=== PATIENT | female | born 1995 | race Caucasian/White ===

== ENCOUNTER → 2019-06-10 17:21 | Outpatient (CLI) | payer MEDICAID, SELFPAY ==
[2019-06-10 18:12] LABS: Chloride 104 mmol/L (98-107); Sodium 141 mmol/L (136-145)
[2019-06-10 18:13] LABS: Potassium 4.2 mmoL/L (3.5-5.1)
[2019-06-10 18:15] LABS: Alanine Aminotransferase 9 U/L (12-78); Albumin Level 4.2 g/dl (3.5-5.0); Albumin/Globulin Ratio 1.5 (1.1-1.8); Alkaline Phosphatase 68 U/L (38-126); Anion Gap 15.2 mEq/L (5-15); Aspartate Amino Transferase 24 U/L (14-36); Bilirubin,Total 0.2 mg/dl (0.2-1.3); Blood Urea Nitrogen 7 mg/dl (7-17); Calcium 9.5 mg/dl (8.4-10.2); Carbon Dioxide 26 mmol/L (22.0-30.0); Chol/HDL Ratio 2.4 (1-3.5); Cholesterol 107 mg/dl (140-200); Estimated Glomerular Filt Rate 153 ml/min (>60); GFR (African American) 185 ML/MIN (>60); Globulin 2.8 g/dL (1.3-3.2); Glucose 75 mg/dl (74-100); HDL Cholesterol 45 mg/dl (40-60); Triglycerides 34 mg/dl (30-150); VLDL Cholesterol 7 mg/dL (0-40)
[2019-06-10 18:16] LABS: Basophils % 0.4 % (0.1-2.0); Eosinophils # 0.1 K/mm3 (0.0-0.4); Eosinophils % 0.7 % (0.1-12.0); Hematocrit 41.7 % (37.0-47.0); Hemoglobin 13.6 g/dL (12.2-16.2); Lymphocytes # 2.1 K/mm3 (0.7-4.5); Lymphocytes % 24.3 % (10-50); Mean Corpuscular HGB Conc 32.6 g/dL (31.8-35.4); Mean Corpuscular Hemoglobin 31.4 pg (27.0-31.2); Mean Corpuscular Volume 96.3 fl (81-99); Mean Platelet Volume 8.7 fl (7.4-10.4); Monocytes # 0.5 K/mm3 (0.1-1.0); Monocytes % 5.5 % (1.7-9.3); Neutrophils # 5.9 K/mm3 (1.8-7.8); Neutrophils % 69.1 % (37.0-80.0); Platelet Count 438 K/mm3 (142-424); Red Blood Count 4.33 M/mm3 (4.20-5.40); Red Cell Distribution Width 13.1 % (11.5-17.5); White Blood Count 8.5 K/mm3 (4.8-10.8)
[2019-06-10 18:33] LABS: T4 (Thyroxine) 7.2 ug/dl (5.53-11.0)
[2019-06-10 18:47] LABS: Thyroid Stimulating Hormone 0.62 uIU/mL (0.465-4.68)
[2019-06-12 12:18] LABS: Vitamin D 25 Hydroxy 26.6 ng/mL (30.0-100.0)
== END ==
PROVIDERS: Visit Provider Physician Assistant
DX: Z79.899 Other long term (current) drug therapy (principal); E55.9 Vitamin D deficiency, unspecified
CPT/HCPCS: 80053; 80061; 82652; 84436; 84443; 85025

== ENCOUNTER → 2019-06-11 12:04 | Outpatient (CLI) | payer MEDICAID, SELFPAY ==
--- NOTE | 2019-06-11 12:09 | XR_ITS ---
PROCEDURE: XR CERVICAL SPINE 4V CLINICAL INDICATION: Neck pain, decreased ROM Neck pain COMPARISON: No exams were available for comparison FINDINGS: There is slight reversal of the cervical lordosis which could be due to patient positioning or muscle spasm. No acute fracture or dislocation. The disc spaces are well preserved. The foramina are widely patent. No significant degenerative change. No cervical rib IMPRESSION: There is straightening/reversal of the normal lordosis which may be due to patient positioning or muscle spasm. Otherwise negative Dictated by: Baltazar Decker MD 06/11/2019 18:01 Electronically signed by Baltazar Decker MD in [place] 06/11/2019 18:01
== END ==
PROVIDERS: PCP Physician Assistant; Visit Provider Physician Assistant
DX: M54.2 Cervicalgia (principal)
CPT/HCPCS: 72050

== ENCOUNTER 2020-03-13 14:58 | Emergency (ER) | payer MEDICAID, SELFPAY ==
[2020-03-13 15:00] VITALS: BP 144/95; PULSE 74; RESP 16; TEMP 36.6; O2SAT 98; BMI 25.8
[2020-03-13 15:10] VITALS: BP 116/71; PULSE 69; RESP 21; TEMP 36.6; O2SAT 100; BMI 25.8
--- NOTE | 2020-03-13 15:32 | HMH.EDUTC ---
[facility] [place] Disposition Condition on Discharge: Good Time of Disposition: 15:36 <SummerJaime ramosclevemarshall - Last Filed: 03/13/20 15:32> Condition on Discharge: Good <Jeff Sutherland - Last Filed: 03/13/20 16:27> Clinical Impression: Corneal abrasion, left Qualifiers: Encounter type: initial encounter Qualified Code(s): S05.02XA - Injury of conjunctiva and corneal abrasion without foreign body, left eye, initial encounter Disposition: Home, Self-Care Instructions: DI for Corneal Abrasion Prescriptions: Erythromycin Base [Erythromycin 1gm opth ointment] 1 applicatio EYE-LEFT QID 5 Days #1 oint...g. Transmission Status: Pending to [facility] Referrals: Mike Reyes MD [Primary Care Provider] - Medical Decision Making - Babar Pak Pt receiving controlled substance: No <Butch Parisi - Last Filed: 03/13/20 15:32> - Medical Records Medical records reviewed: Yes: I reviewed the patient's medical records. - Babar Pak Pt receiving controlled substance: No <Jeff Sutherland - Last Filed: 03/13/20 16:27> Vital Signs: 03/13/20 15:00 03/13/20 15:10 Temperature 98 F 97.9 F Temperature Source Oral Oral Pulse Rate [Right Brachial] 74 69 Respiratory Rate 16 21 Blood Pressure [Right Arm] 144/95 H 116/71 Blood Pressure Mean [Right Arm] 111 86 Blood Pressure Source [Right Arm] Automatic Cuff Blood Pressure Position [Right Arm] Sitting Sitting 02 Sat by Pulse Oximetry 98 100 Oxygen Delivery Method Room Air Room Air Medical Decision Narrative: 24-year-old female presenting to the emergency department with left eye discomfort. Patient has normal visual acuity. I did perform Mae lamp examination. She does have a small corneal abrasion. There was some dirt also in the medial aspect of the eye. This was removed with a cotton swab tip. Patient be discharged with antibiotic ointment. Needs to follow-up with PCP. Given strict return precautions. Verbalized understanding. (Jeff Sutherland) [facility] [place] HPI - General Mode of Arrival: Ambulatory Source of Information: Patient Limitations: No Limitations Description of Symptoms (Recalled from Triage Doc. by RN): PATIENT C/O BURNING AND IRRITATION TO LEFT EYE SINCE YESTERDAY. STATES SHE FEELS LIKE THERE IS SOMETHING IN IT HEENT Symptoms (Recalled from RN notes): Yes Resp Symptoms (Recalled from RN notes): No Skin Symptoms (Recalled from RN notes): No MS Symptoms (Recalled from RN notes): No Functional Status (Recalled from RN notes): WNL - History of Present Illness Provider Complaint: 24 yr old female presents for left eye pain. Pt states last pm she felt something was in her eye and she rubbed it. Pt states she used artificial tears and her mother looked in eye and could not find anything. pt states she feels like there is something in her eye or scratched her eye. pt states no drainage or redness - Worker's Comp Is this a Worker's Comp case?: No <Butch Parisi - Last Filed: 03/13/20 15:32> <Jeff Sutherland - Last Filed: 03/13/20 16:27> - General Chief complaint: [facility] Stated complaint: left eye irritated Time Seen by Provider: 03/13/20 15:32 - Related Data Previous Rx's Medication Instructions Recorded Erythromycin Base [Erythromycin 1 applicatio EYE-LEFT QID 5 Days 03/13/20 1gm opth ointment] #1 oint...g. Allergies Allergy/AdvReac Type Severity Reaction Status Date / Time No Known Drug Allergies Allergy Unknown Verified 06/10/19 14:24 [NKDA] [facility] History - Hepatitis A Screen Drug use history?: No High risk sexual behaviors?: No History of sexually transmitted infection?: No Currently employed?: No Childcare worker?: No Do you have indoor plumbing?: Yes Do you have electricity?: Yes I have reviewed the patient's past medical history: Yes 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: Denies:: Diabetes Mellitus Type 1, Diabetes Mellitus Type 2 Other Surgeries: Yes: Amputation: No Fractures: No - Social History S
--- NOTE | 2020-03-13 15:51 | PC.NURSE ---
PATIENT SENT TO ER AT THIS TIME PER MAHENDRA OLIVAS APRN
--- NOTE | 2020-03-13 16:13 | PC.NURSE ---
visual acuity rt eye 20/20, lt eye 20/40 -1 with out correction
[2020-03-13 16:50] VITALS: BP 180/71; PULSE 76; RESP 16; TEMP 36.9; O2SAT 99
== END 2020-03-13 16:50 | disposition home or self-care (01) ==
LOC: UTC 15:36 → ER 15:51
PROVIDERS: Emergency Provider Emergency Medicine; PCP Emergency Medicine
DX: S05.02XA Injury of conjunctiva and corneal abrasion without foreign body, left eye, initial encounter (principal); F17.290 Nicotine dependence, other tobacco product, uncomplicated
CPT/HCPCS: 99282

== ENCOUNTER 2020-03-22 08:10 | Emergency (ER) | payer MEDICAID, SELFPAY ==
--- NOTE | 2020-03-22 08:05 | ECG_ITS ---
APPROVED REPORT Exam: Resting ECG HR:65 bpm ECG Measurements Heart Rate 65 AXES WV 136 P 31 QRSd 76 QRS 60 QT 392 T 58 QTc 407 Conclusion Normal sinus rhythm with sinus arrhythmia Normal ECG Electronically signed by : Marlon Singleton, 03/22/2020 19:08:58
[2020-03-22 08:10] VITALS: BP 138/82; PULSE 84; RESP 20; TEMP 36.6; O2SAT 100; BMI 25.8
--- NOTE | 2020-03-22 08:20 | XR_ITS ---
PROCEDURE: XR CHEST 2V CLINICAL HISTORY: cough soa COMPARISON: No exams were available for comparison FINDINGS: The cardiomediastinal silhouette and pulmonary vascularity are within normal limits. The lungs are clear without infiltrates, suspicious nodules, or pleural effusions. There is calcified granuloma in the right upper lobe. No acute bony abnormalities. IMPRESSION: No acute findings. Dictated by: Baltazar Decker MD 03/22/2020 09:08 Baltazar Decker MD in [place] 03/22/2020 09:08
--- NOTE | 2020-03-22 08:20 | HMH.EDGENADL ---
ED Disposition Clinical Impression: Atypical chest pain Asthma Qualifiers: Asthma severity: mild Asthma persistence: intermittent Asthma complication type: with acute exacerbation Qualified Code(s): J45.21 - Mild intermittent asthma with (acute) exacerbation Disposition: Home, Self-Care Condition on Discharge: Good Instructions: DI for Atypical Chest Pain Prescriptions: predniSONE [Prednisone 20mg Tab] 60 mg PO DAILY 5 Days #15 tab Prescription Printed Albuterol Sulfate [Proair Hfa] 8.5 gm IH Q4-6H PRN #1 hfa.aer.ad PRN Reason: Shortness Of Breath Or Wheezing Prescription Printed Referrals: Mike Reyes MD [Primary Care Provider] - Forms: Work/School Release - Critical Care Critical Care Time: No Attestation: On , the high probability of a clinically significant, sudden or life threatening deterioration of the following system(s) required my full and direct attention, intervention and personal management. The time I documented below is in addition to time spent performing reported procedures but includes the following listed in this critical care notation. Medical Decision Making - Medical Records Medical records reviewed: Yes: I reviewed the patient's medical records. - Babar Inquiry Pt receiving controlled substance: No Vital Signs: 03/22/20 08:10 Temperature 97.9 F Temperature Source Oral Pulse Rate [Left Radial] 84 Respiratory Rate 20 Blood Pressure [Right Arm] 138/82 Blood Pressure Mean [Right Arm] 100 Blood Pressure Source [Right Arm] Automatic Cuff Blood Pressure Position [Right Arm] Sitting 02 Sat by Pulse Oximetry 100 Oxygen Delivery Method Room Air - Lab Data Lab Results 03/22/20 08:15: Serum HCG, Qual Negative Orders (Tests/Meds): ED MEDICATIONS Discontinued Medications Generic Name Dose Route Start Last Admin Trade Name Freq PRN Reason Stop Dose Admin Albuterol/Ipratropium 3 ml 03/22/20 08:20 Albuterol/Ipratropium 3 Ml Neb IH 03/22/20 08:21 ONCE ONE Medical Decision Narrative: Patient is a 24 year old female who presents with shortness of breath. on arrival she is hemodynamically stable. Vitals unremarkable. EKG without ischemic changes, NSR, rate of 65, normal axis. Ddx includes asthma exacerbation, viral URI, pneumonia, PE, ACS. Low suspicion for ACS based on EKG, history, no risk factors. PERC negative, low suspicion for PE. Likely asthma exacerbation. CXR unremarkable by my read. Given albuterol neb in the ED with improvement. Will discharge home with refills for her home meds and strict return precautions. General Adult HPI - General Chief complaint: Chest Pain Stated complaint: chest pain Time Seen by Provider: 03/22/20 08:11 Mode of Arrival: Ambulatory (90) Limitations: No Limitations Description of Symptoms (Recalled from ER Triage Doc. by RN): c/o chest pain when she takes a deep breath. Pain started within this hour. - History of Present Illness HPI narrative: The patient is a 24 year old female with a history of asthma who presents with shortness of breath and chest pain. She states it has been going on for about a week but got worse this morning. She says it is consistent with previous asthma exacerbations - she is out of her albuterol inhaler. 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 No fever, N/V/D. notes a dry cough. No abdominal pain. - Related Data Previous Rx's Medication Instructions Recorded Albuterol Sulfate [Proair Hfa] 8.5 gm IH Q4-6H PRN #1 hfa.aer.ad 03/22/20 predniSONE [Prednisone 20mg 60 mg PO DAILY 5 Days #15 tab 03/22/20 Tab] Allergies Allergy/AdvReac Type Severity Reaction Status Date / Time No Known Drug Allergies Allergy Unknown Verified 06/10/19 14:24 [NKDA] [facility] History - Hepatitis A Screen Drug use history?: No High risk sexual behaviors?: No History of sexually transmitted infection?: No Currently employed?: No Child
[2020-03-22 08:40] LABS: HCG Qualitative, Serum Negative (Negative)
[2020-03-22 09:00] VITALS: PULSE 75; PULSE 80
[2020-03-22 09:25] VITALS: BP 115/73; PULSE 80; RESP 20; TEMP 36.6; O2SAT 100
== END 2020-03-22 09:26 | disposition home or self-care (01) ==
PROVIDERS: Emergency Provider Emergency Medicine; PCP Emergency Medicine
DX: J45.21 Mild intermittent asthma with (acute) exacerbation (principal); R07.89 Other chest pain; F17.210 Nicotine dependence, cigarettes, uncomplicated; Z79.899 Other long term (current) drug therapy
CPT/HCPCS: 71046; 84703; 93005; 99282

== ENCOUNTER 2020-05-21 14:25 | Emergency (ER) | payer MEDICAID, SELFPAY ==
[2020-05-21 14:25] VITALS: BP 140/100; PULSE 85; RESP 18; TEMP 36.7; O2SAT 98; BMI 26.6
[2020-05-21 14:49] LABS: Urine Pregnancy, HCG Qual. Negative (Negative)
--- NOTE | 2020-05-21 15:31 | HMH.EDGENADL ---
ED Disposition Clinical Impression: Back pain with sciatica Disposition: Home, Self-Care Condition on Discharge: Good Instructions: DI for Back Pain With Sciatica Additional Instructions: Prednisone as prescribed. Ibuprofen or Tylenol for pain. additional instructions for BACK PAIN: See your physician as soon as possible for further evaluation. Return immediately if back pain becomes intolerable, or if fever, numbness or weakness of your legs, loss of control of your bowels or bladder. Prescriptions: predniSONE [Prednisone 20mg Tab] 20 mg PO BID #10 tab Transmission Status: Received by [facility] Referrals: Mike Reyes MD [Primary Care Provider] - - Critical Care Critical Care Time: No Attestation: On 05/21/20, the high probability of a clinically significant, sudden or life threatening deterioration of the following system(s) required my full and direct attention, intervention and personal management. The time I documented below is in addition to time spent performing reported procedures but includes the following listed in this critical care notation. Medical Decision Making - Babar Inquiry Pt receiving controlled substance: No Vital Signs: 05/21/20 14:25 05/21/20 16:13 Temperature 98.1 F 98 F Temperature Source Oral Oral Pulse Rate 74 Pulse Rate [Radial] 85 Respiratory Rate 18 16 Blood Pressure 132/74 Blood Pressure [Right Arm] 140/100 H Blood Pressure Mean [Right Arm] 113 Blood Pressure Position Sitting Blood Pressure Position [Right Arm] Sitting 02 Sat by Pulse Oximetry 98 Oxygen Delivery Method Room Air Room Air - Lab Data Lab Results 05/21/20 14:35: Urine HCG, Qual Negative Orders (Tests/Meds): ED MEDICATIONS Discontinued Medications Generic Name Dose Route Start Last Admin Trade Name Jesi PRN Reason Stop Dose Admin Dexamethasone Sodium Phosphate 8 mg 05/21/20 15:37 05/21/20 15:46 Dexamethasone 4mg/Ml 1ml Vial IM 05/21/20 15:38 8 mg ONCE ONE Administration Ketorolac Tromethamine 60 mg 05/21/20 15:37 05/21/20 15:46 Ketorolac 60mg/2ml Vial IM 05/21/20 15:38 60 mg ONCE ONE Administration General Adult HPI - General Chief complaint: Back Pain/Injury Stated complaint: back pain, no accident Time Seen by Provider: 05/21/20 15:31 Mode of Arrival: Ambulatory Limitations: No Limitations Description of Symptoms (Recalled from ER Triage Doc. by RN): TO ED PER PVT CAR WITH C/O LOWER BACK PAIN RADIATING LT GROIN AND DOWN LT LEG STARTING APPROX 2 DAYS AGO WHEN GETTING OUT OF BED. PT DENIES ANY INCONTINENCE OF BOWEL OR BLADDER - History of Present Illness HPI narrative: Patient states that she awakened with low back pain radiating into her left thigh and groin area 2 days ago. No injury or unusual activity. No prior back problems except for scoliosis. Denies numbness or weakness but has occasional tingling of her left thigh when walking. No loss of bowel or bladder control. She took some ibuprofen couple of days ago, but no medications since. Pain seems to improve when she improves her posture and sits upright. - Related Data Previous Rx's Medication Instructions Recorded Albuterol Sulfate [Proair Hfa] 8.5 gm IH Q4-6H PRN #1 hfa.aer.ad 03/22/20 predniSONE [Prednisone 20mg 60 mg PO DAILY 5 Days #15 tab 03/22/20 Tab] predniSONE [Prednisone 20mg 20 mg PO BID #10 tab 05/21/20 Tab] Allergies Allergy/AdvReac Type Severity Reaction Status Date / Time No Known Drug Allergies Allergy Unknown Verified 06/10/19 14:24 [NKDA] [facility] History - Hepatitis A Screen Drug use history?: No High risk sexual behaviors?: No History of sexually transmitted infection?: No Currently employed?: No Childcare worker?: No Do you have indoor plumbing?: Yes Do you have electricity?: Yes Attestation statement:: This patient has been screened for Hepatitis A risk factors. I have reviewed the patient's
[2020-05-21 16:13] VITALS: BP 132/74; PULSE 74; RESP 16; TEMP 36.6; O2SAT 98
== END 2020-05-21 16:14 | disposition home or self-care (01) ==
PROVIDERS: Emergency Provider Emergency Medicine; PCP Emergency Medicine
DX: M54.42 Lumbago with sciatica, left side (principal); F17.210 Nicotine dependence, cigarettes, uncomplicated
CPT/HCPCS: 81025; 96372; 99282

== ENCOUNTER 2020-06-09 19:23 | Emergency (ER) | payer MEDICAID, SELFPAY ==
[2020-06-09 19:25] VITALS: BP 134/72; PULSE 93; RESP 16; TEMP 36.9; O2SAT 100; BMI 26.6
--- NOTE | 2020-06-09 19:32 | ECG_ITS ---
APPROVED REPORT Exam: Resting ECG HR:83 bpm ECG Measurements Heart Rate 83 AXES MI 138 P 64 QRSd 84 QRS 89 QT 354 T 73 QTc 415 Conclusion Normal sinus rhythm Nonspecific ST abnormality Abnormal ECG Electronically signed by : Marlon Singleton, 06/10/2020 10:05:53
--- NOTE | 2020-06-09 19:41 | XR_ITS ---
PROCEDURE: XR CHEST 2V CLINICAL HISTORY: syncope COMPARISON: CR XR CHEST 2V from 01/11/2019 CR XR CHEST 2V from 02/11/2019 CR XR CHEST 2V from 03/22/2020 FINDINGS: The cardiomediastinal silhouette and pulmonary vascularity are within normal limits. The lungs are clear without infiltrates, suspicious nodules, or pleural effusions. No acute bony abnormalities. IMPRESSION: No acute findings. Dictated by: Baltazar Decker MD 06/10/2020 05:34 Baltazar Decker MD in [place] 06/10/2020 05:34
--- NOTE | 2020-06-09 19:41 | CT_ITS ---
PROCEDURE: CT LUMBAR SPINE WO CON CLINICAL HISTORY: fall COMPARISON: No exams were available for comparison TECHNIQUE: Axial images obtained with sagittal and coronal reformats. All CT scans at the facility use one or more dose reduction, viz: automated exposure control, ma/kV adjustment per patient size (including targeted exams where dose is matched to indication, i.e. head), or iterative reconstruction technique. FINDINGS: There is normal alignment. No fracture or dislocation. No lytic or blastic change. There is bulging disc present L4-5 facet and ligamentum hypertrophy with resultant canal. The disc somewhat eccentric toward the right. Bulging disc is also present at L5-S1 with a small right paracentral disc protrusion. There is small amount fluid in the pelvis. A 2 mm stone is present in the upper pole of the left kidney and there is a small left renal hypodensity at 1.6 cm which may represent a renal cyst. IMPRESSION: 1. No acute fracture. 2. There is bulging disc present L4-5 facet and ligamentum hypertrophy with resultant canal. The disc somewhat eccentric toward the right. Bulging disc is also present at L5-S1 with a small right paracentral disc protrusion. Dictated by: Baltazar Decker MD 06/10/2020 07:13 Baltazar Decker MD in [place] 06/10/2020 07:13
--- NOTE | 2020-06-09 19:41 | CT_ITS ---
PROCEDURE: CT HEAD/BRAIN WO CON CLINICAL INDICATION: fall Head injury with headache/pain, contusion, abrasion or hematoma Syncope COMPARISON: CT CT HEAD/BRAIN WO CON from 11/15/2018 TECHNIQUE: Axial images obtained. All CT scans at the facility use one or more dose reduction, viz: automated exposure control, ma/kV adjustment per patient size (including targeted exams where dose is matched to indication, i.e. head), or iterative reconstruction technique. FINDINGS: No midline shift, mass effect, intracranial hemorrhage, hydrocephalus, or extra-axial fluid collection is evident. The calvarium has an unremarkable appearance. No mastoid effusion. No sinus air-fluid level. IMPRESSION: No acute intracranial finding Dictated by: Baltazar Decker MD 06/10/2020 07:08 Baltazar Decker MD in [place] 06/10/2020 07:08
--- NOTE | 2020-06-09 19:45 | CT_ITS ---
PROCEDURE: CT CERVICAL SPINE WO CON CLINICAL INDICATION: fall Blunt trauma with injury and pain, contusion/abrasion or hematoma following injury COMPARISON: CT CT CERVICAL SPINE WO CON from 11/15/2018 TECHNIQUE: Axial images obtained with sagittal and coronal reformats. All CT scans at the facility use one or more dose reduction, viz: automated exposure control, ma/kV adjustment per patient size (including targeted exams where dose is matched to indication, i.e. head), or iterative reconstruction technique. Axial spiral CT scanning performed of the cervical spine beginning at the base of the skull and continuing to the upper T-spine. 3-D multiplanar reconstruction with 3-D manipulation of volumetric data set in image rendering was completed by the radiologist and/or technologist with the supervision of the radiologist on independent workstation. FINDINGS: No fracture nor subluxation is evident. Normal prevertebral soft tissues. Facets, neural foramen and vertebral bodies intact and unremarkable. Normal C1/C2 relationships. Apices of lungs are clear with no acute findings. There is straightening/reversal of the normal lordosis which may be due to patient positioning or muscle spasm. No fracture or dislocation. The disc are well preserved. Lung apices are clear. IMPRESSION: Reversal of cervical lordosis otherwise negative. Dictated by: Baltazar Decker MD 06/10/2020 07:06 Baltazar Decker MD in [place] 06/10/2020 07:06
[2020-06-09 19:46] LABS: Microscopic, Urine URINE MICROSCOPIC (MICROSCOPIC)
[2020-06-09 19:53] LABS: Urine Pregnancy, HCG Qual. Negative (Negative)
[2020-06-09 19:55] LABS: Basophils % 0.2 % (0.1-2.0); Eosinophils % 0.1 % (0.1-12.0); Hematocrit 43.2 % (37.0-47.0); Hemoglobin 14.1 g/dL (12.2-16.2); Lymphocytes # 1.7 K/mm3 (0.7-4.5); Lymphocytes % 16.1 % (10-50); Mean Corpuscular HGB Conc 32.7 g/dL (31.8-35.4); Mean Corpuscular Hemoglobin 31.5 pg (27.0-31.2); Mean Corpuscular Volume 96.2 fl (81-99); Mean Platelet Volume 8.1 fl (7.4-10.4); Monocytes # 0.6 K/mm3 (0.1-1.0); Monocytes % 5.1 % (1.7-9.3); Neutrophils # 8.4 K/mm3 (1.8-7.8); Neutrophils % 78.5 % (37.0-80.0); Platelet Count 393 K/mm3 (142-424); Red Blood Count 4.49 M/mm3 (4.20-5.40); Red Cell Distribution Width 13.3 % (11.5-17.5); White Blood Count 10.7 K/mm3 (4.8-10.8)
[2020-06-09 20:00] VITALS: BP 139/73; PULSE 89; RESP 17; O2SAT 98
[2020-06-09 20:00] LABS: Alanine Aminotransferase 15 U/L (12-78); Albumin Level 4.8 g/dl (3.5-5.0); Alkaline Phosphatase 62 U/L (38-126); Anion Gap 13.4 mEq/L (5-15); Aspartate Amino Transferase 29 U/L (14-36); Bilirubin,Indirect 0.8 mg/dL (0.0-0.9); Bilirubin,Total 0.8 mg/dl (0.2-1.3); Bilirubin,Unconjugated 0.9 mg/dL (0.0-1.1); Blood Urea Nitrogen 8 mg/dl (7-17); Calcium 9.9 mg/dl (8.4-10.2); Carbon Dioxide 24 mmol/L (22.0-30.0); Chloride 103 mmol/L (98-107); Creatinine Clearance Estimated 211 mL/min (50-200); Estimated Glomerular Filt Rate 152 ml/min (>60); GFR (African American) 183 ML/MIN (>60); Glucose 111 mg/dl (74-100); Potassium 3.4 mmoL/L (3.5-5.1); Sodium 137 mmol/L (136-145); Total Protein,Serum 8.3 g/dl (6.3-8.2)
[2020-06-09 20:04] LABS: Bacteria,Urine 2+ /lpf; WBC,Urine Occasional #/hpf (0-3)
[2020-06-09 20:05] LABS: Amphetamine/Metha Screen,Urine Negative ng/ml (<1000); Barbiturates Screen,Urine Negative ng/ml (<200)
[2020-06-09 20:05] LABS: C-Reactive Protein 0.4 mg/L (0-4)
[2020-06-09 20:06] LABS: Benzodiazepines Screen,Urine Negative ng/ml (<200)
--- NOTE | 2020-06-09 20:06 | HMH.EDSYNC ---
ED Disposition Clinical Impression: Vasovagal syncope Disposition: Home, Self-Care Condition on Discharge: Good Instructions: DI for Syncope in Adults (Fainting) Additional Instructions: will see in office this week Referrals: Mike Reyes MD [Primary Care Provider] - - Critical Care Critical Care Time: No Attestation: On 06/09/20, the high probability of a clinically significant, sudden or life threatening deterioration of the following system(s) required my full and direct attention, intervention and personal management. The time I documented below is in addition to time spent performing reported procedures but includes the following listed in this critical care notation. Medical Decision Making - Medical Records Medical records reviewed: Yes: I reviewed the patient's medical records. - Babar Inquiry Pt receiving controlled substance: No Vital Signs: 06/09/20 19:25 06/09/20 20:00 Temperature 98.4 F Temperature Source Oral Pulse Rate [Left Radial] 93 H 89 Respiratory Rate 16 17 Blood Pressure [Right Arm] 134/72 139/73 Blood Pressure Mean [Right Arm] 92 95 Blood Pressure Source [Right Arm] Automatic Cuff Automatic Cuff Blood Pressure Position [Right Arm] Supine Supine 02 Sat by Pulse Oximetry 100 98 Oxygen Delivery Method Room Air Room Air - Lab Data Lab results reviewed: Yes: I reviewed the patient's lab results. Lab Results 06/09/20 19:32: Urine Color Yellow, Urine Appearance Sl cloudy, Urine pH 6.0, Ur Specific [place] <= 1.005, Urine Protein Negative, Urine Glucose (UA) Negative, Urine Ketones Negative, Urine Blood Negative, Urine Nitrate Negative, Urine Bilirubin Negative, Urine Urobilinogen 0.2, Ur Leukocyte Esterase Negative, Urine RBC None, Urine WBC Occasional, Ur Squamous Epith Cells 10-20, Urine Bacteria 2+ 06/09/20 19:32: Urine HCG, Qual Negative 06/09/20 19:32: Urine Opiates Screen Negative, Urine Methadone Screen Negative, Ur Barbituates Screen Negative, Ur Phencyclidine Scrn Negative, Ur Amphetamines Screen Negative, U Benzodiazepines Scrn Negative, Urine Cocaine Screen Negative, U Marijuana (THC) Screen Positive H 06/09/20 19:35: Troponin I < 0.01 06/09/20 19:40: WBC 10.7, RBC 4.49, Hgb 14.1, Hct 43.2, MCV 96.2, MCH 31.5 H, MCHC 32.7, RDW 13.3, Plt Count 393, MPV 8.1, Neut % (Auto) 78.5, Lymph % (Auto) 16.1, Sharp % (Auto) 5.1, Eos % (Auto) 0.1, Baso % (Auto) 0.2, Neut # (Auto) 8.4 H, Lymph # (Auto) 1.7, Sharp # (Auto) 0.6, Eos # (Auto) 0.0, Baso # (Auto) 0.0, ESR 20 06/09/20 19:40: Sodium 137, Potassium 3.4 L, Chloride 103, Carbon Dioxide 24, Anion Gap 13.4, BUN 8, Creatinine 0.50 L, Estimated Creat Clear 211, Estimated GFR 152, Est GFR ( Amer) 183, Glucose 111 H, Calcium 9.9, Total Bilirubin 0.8, Direct Bilirubin 0.0, Conjugated Bilirubin 0.0, Indirect Bilirubin 0.8, Unconjugated Bilirubin 0.9, AST 29, ALT 15, Alkaline Phosphatase 62, C-Reactive Protein 0.4, Total Protein 8.3 H, Albumin 4.8, Procalcitonin < 0.030 Result diagrams: 06/09/20 19:40 06/09/20 19:40 Orders (Tests/Meds): ED MEDICATIONS Generic Name Dose Route Start Last Admin Trade Name Freq PRN Reason Stop Dose Admin Sodium Chloride 1,000 mls @ 999 mls/hr 06/09/20 19:45 06/09/20 19:48 Sod Chlor 0.9% 1000ml Bag IV 06/09/20 20:45 999 mls/hr .Q1H1M MIESHA Administration Discontinued Medications Generic Name Dose Route Start Last Admin Trade Name Freq PRN Reason Stop Dose Admin Ketorolac Tromethamine 30 mg 06/09/20 19:46 06/09/20 19:49 Ketorolac 30mg/Ml Vial IV 06/09/20 19:47 30 mg ONCE ONE Administration Methylprednisolone Sodium Succinate 125 mg 06/09/20 19:46 06/09/20 19:49 Methylprednisolone Sod Succ 125mg Vial IV 06/09/20 19:47 125 mg ONCE ONE Administration ORDERS Category Date Time Status CT cervical spine wo con Stat Cat Scan 06/09/20 19:[address] head/brain wo con Stat Cat Scan 06/09/20 19:[address] lumbar spine wo con Stat Cat Scan 06/09/20 19:41 T
[2020-06-09 20:07] LABS: Appearance,Urine SL CLOUDY (Clear); Bilirubin,Urine Negative (Negative); Blood, Urine Negative (Negative); Cannabinoid Screen,Urine Positive ng/ml (<50); Cocaine Screen,Urine Negative ng/ml (<300); Color,Urine YELLOW (Yellow); Glucose,Urine (UA) Negative (Negative); Ketones,Urine Negative (Negative); Leukocyte Esterase,Urine Negative (Negative); Nitrate,Urine Negative (Negative); Protein,Urine Negative (Negative); Specific Gravity, Urine <= 1.005 (1.005-1.030); Urobilinogen,Urine 0.2 EU/dl (0.2)
[2020-06-09 20:08] LABS: Methadone Screen,Urine Negative ng/ml (<300); Opiate Screen,Urine Negative ng/ml (<300)
[2020-06-09 20:09] LABS: Phencyclidine Screen,Urine Negative ng/ml (<25)
[2020-06-09 20:26] LABS: Procalcitonin < 0.030 ng/mL (0.0-2.0)
[2020-06-09 20:49] LABS: Erythrocyte Sedimentation Rate 20 mm/hr (0-20)
[2020-06-09 21:00] VITALS: BP 128/86; PULSE 78; RESP 16; O2SAT 99
[2020-06-09 21:08] LABS: Troponin I < 0.01 ng/ml (0.00-0.034)
[2020-06-09 21:30] VITALS: BP 109/64; PULSE 77; RESP 14; O2SAT 98
[2020-06-09 21:42] VITALS: BP 107/74; PULSE 88; RESP 16; TEMP 36.6; O2SAT 99
== END 2020-06-09 21:47 | disposition home or self-care (01) ==
PROVIDERS: Emergency Provider Emergency Medicine; PCP Emergency Medicine
DX: R55 Syncope and collapse (principal); F17.210 Nicotine dependence, cigarettes, uncomplicated
CPT/HCPCS: 70450; 71046; 72125; 72131; 80048; 80076; 80305; 81001; 81025; 84145; 84484; 85025; 85651; 86140; 87086; 93005; 93225; 93226; 96365; 96375; 99284

== ENCOUNTER 2020-07-22 15:00 | Outpatient (RCR) | payer MEDICAID, SELFPAY ==
--- NOTE | 2020-06-16 14:47 | HMH.PTOPEV ---
PT Outpatient Evaluation Rehab PT Outpatient Evaluation Start: 06/16/20 13:55 Freq: Status: Active Protocol: Document 06/16/20 14:31 GAL (Rec: 06/16/20 14:47 KRISTINAJORGE [id number]) Electronically Signed By Fernando Pettit, PT 06/16/20 14:31 Outpatient Therapy Subjective History Subjective History Patient is a 24 year old female presenting to outpatient PT with reports of sub-acute LBP with BLE radicular symptoms L>R. SI special tests negative. Most recent imaging indicates L 4/5 , L5/S1 bulging discs. Comorbidities indicate hx of asthma. Chief Complaint Pain,Stiff,Paresthesia, Weakness Symptom Type Ache,Sharp Symptoms Relieved By Prescription Meds,Activity Symptoms Aggravated By Sitting,Bending/Stooping, Physical Activity,Walking, Lifting Prior Functional Limitations None Current Functional Limitations Lifting,Housework,Sleeping, Sitting,Squatting,Recreation Activity,Bending/Stooping Symptom Description Constant but Variable Level of pain today (0-10) 1 Pain scale - at its best (0-10) 0 Pain scale - at its worst (0-10) 6 Lumbopelvic Eval Posture Thoracic Spine Posture Standing Position Neutral Lumbar Spine Posture Standing Position Neutral Palapation tenderness bilateral lumbar spinal tenderness Yes: L2-L5/S1 3/4 Accessory Movement L2 bilateral L3 bilateral L4 bilateral L5 bilateral S1 bilateral Range of Motion Lumbar Spine Active Flexion Range of 68 Motion (degrees) Lumbar Spine Active Extension Range of 24 Motion (degrees) Left Lumbar Spine Lateral Flexion Active wnl Range of Motion (degrees) Right Lumbar Spine Lateral Flexion WNL Active Range of Motion (degrees) Manual Muscle Test Bilateral Knee Extension Strength Grade 4 Good Knee Flexion Strength Grade 4 Good Hip Flexion Strength Grade 4 Good Extensor Hallucis Longus Strength Grade 5 Normal Ankle Dorsiflexion Strength Grade 5 Normal Gastronemius/Soleus Strength Grade 5 Normal DTR Rt Patellar 2+ Lt Patellar 2+ Rt Gastroc/Soleus 2+ Lt Gastroc/Soleus 2+ Special Tests Hip Kenna Test Positive Left,Positive Right Hip Pirifo
== END 2020-07-22 15:05 | disposition home or self-care (01) ==
LOC: PT 15:00
PROVIDERS: PCP Emergency Medicine; Visit Provider Nurse Practitioner Family
DX: M54.5 Low back pain (principal); M54.30 Sciatica, unspecified side
CPT/HCPCS: 97010; 97012; 97014; 97110; 97163; G0283

== ENCOUNTER 2020-08-06 17:23 | Emergency (ER) | payer MEDICAID, SELFPAY ==
[2020-08-06 17:51] VITALS: BP 127/96; PULSE 97; RESP 14; TEMP 36.9; O2SAT 97; BMI 25.5
--- NOTE | 2020-08-06 18:08 | HMH.EDUTC ---
[facility] [place] Clinical Impression: Otitis media Qualifiers: Otitis media type: suppurative Chronicity: acute Laterality: bilateral Recurrence: non-recurrent Spontaneous tympanic membrane rupture: without spontaneous rupture Qualified Code(s): H66.003 - Acute suppurative otitis media without spontaneous rupture of ear drum, bilateral Disposition: Home, Self-Care Condition on Discharge: Good Instructions: Middle Ear Infection Additional Instructions: Drink plenty of fluids. Take tylenol or ibuprofen for pain or fever. Take the medications as directed. Follow up with your regular doctor. GO TO THE ER FOR ANY WORSENING SYMPTOMS Prescriptions: Amoxicillin [Amoxicillin 500mg Tab] 500 mg PO TID 10 Days #30 tab Transmission Status: Received by [facility] Referrals: Mike Reyes MD [Primary Care Provider] - Time of Disposition: 18:17 Medical Decision Making - Medical Records Medical records reviewed: No: I reviewed the patient's medical records. - Babar Inquiry Pt receiving controlled substance: No Vital Signs: 08/06/20 17:51 08/06/20 18:46 Temperature 98.5 F 98.6 F Temperature Source Oral Pulse Rate 96 H Pulse Rate [Right] 97 H Respiratory Rate 14 16 Blood Pressure 122/82 Blood Pressure [Right Arm] 127/96 H Blood Pressure Mean [Right Arm] 106 Blood Pressure Source Automatic Cuff Blood Pressure Source [Right Arm] Automatic Cuff Blood Pressure Position Sitting Blood Pressure Position [Right Arm] Sitting 02 Sat by Pulse Oximetry 97 Oxygen Delivery Method Room Air [facility] [place] - General Stated complaint: Menstrual cycle Time Seen by Provider: 08/06/20 18:08 Mode of Arrival: Ambulatory Source of Information: Patient Limitations: No Limitations Description of Symptoms (Recalled from Triage Doc. by RN): pt is having L ear pain and feels like she is on a boat and dizzy. pt also c/o starting her period yesterday and its extremely heave. overall she says she feels weird and just wants to cry all the time. pt has no thought of harming herself. HEENT Symptoms (Recalled from RN notes): Yes (L ear pain and dizziness) Resp Symptoms (Recalled from RN notes): No Skin Symptoms (Recalled from RN notes): No MS Symptoms (Recalled from RN notes): No Functional Status (Recalled from RN notes): na - History of Present Illness Provider Complaint: She states that she has had left ear pain for the past 4 days. She has also felt dizzy at times. She is also having a heavy periods and states that she feels bad from that too. - Related Data Previous Rx's Medication Instructions Recorded Amoxicillin [Amoxicillin 500mg Tab] 500 mg PO TID 10 Days #30 tab 08/06/20 Allergies Allergy/AdvReac Type Severity Reaction Status Date / Time No Known Drug Allergies Allergy Unknown Verified 08/06/20 17:51 [NKDA] - Worker's Comp Is this a Worker's Comp case?: No [facility] History - Hepatitis A Screen Drug use history?: No High risk sexual behaviors?: No History of sexually transmitted infection?: No Currently employed?: No Childcare worker?: No Do you have indoor plumbing?: Yes Do you have electricity?: Yes Attestation statement:: This patient has been screened for Hepatitis A risk factors. I have reviewed the patient's past medical history: Yes 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: Reports:: Asthma Denies:: Diabetes Mellitus Type 1, Diabetes Mellitus Type 2 Other Surgeries: Yes: Amputation: No Fractures: No - Social History Smoking Status: Heavy tobacco smoker Tobacco Type: smokeless tobacco # Packs/Day (cigarettes): 5 Alcohol Intake: never Substance Use Type: denies use Occupational Status: other Housing: apartment Household Members: children Family Hx:: Non-contributory ROS Obtained: Yes All systems reviewed & no additional complaints - Constitutional Constitutional: Denies chills, Denies fever(s), Reports poor appetite, Reports malaise - Eyes Eyes: Denies eye discharge
[2020-08-06 18:46] VITALS: BP 122/82; PULSE 96; RESP 16; TEMP 37
== END 2020-08-06 18:25 | disposition home or self-care (01) ==
PROVIDERS: Emergency Provider Nurse Practitioner Family; PCP Emergency Medicine
DX: H66.003 Acute suppurative otitis media without spontaneous rupture of ear drum, bilateral (principal); N92.0 Excessive and frequent menstruation with regular cycle; F17.290 Nicotine dependence, other tobacco product, uncomplicated
CPT/HCPCS: 99202; G0463

== ENCOUNTER 2020-08-07 22:12 | Emergency (ER) | payer MEDICAID, SELFPAY ==
[2020-08-07 23:37] VITALS: BP 146/81; PULSE 84; RESP 16; TEMP 36.8; O2SAT 100; BMI 25.5
[2020-08-08 00:36] LABS: Strep Scrn Group A (Rapid) Negative (Negative)
[2020-08-08 01:15] VITALS: BP 113/87; PULSE 84; RESP 16; TEMP 36.7; O2SAT 98
--- NOTE | 2020-08-08 01:25 | HMH.EDGENADL ---
ED Disposition Clinical Impression: Pharyngitis Qualifiers: Pharyngitis/tonsillitis etiology: unspecified etiology Qualified Code(s): J02.9 - Acute pharyngitis, unspecified Disposition: Home, Self-Care Condition on Discharge: Good Instructions: DI for Acute Pain -- Adult Additional Instructions: fluids and see pcp for follow up Referrals: Mike Reyes MD [Primary Care Provider] - - Critical Care Critical Care Time: No Attestation: On 08/07/20, the high probability of a clinically significant, sudden or life threatening deterioration of the following system(s) required my full and direct attention, intervention and personal management. The time I documented below is in addition to time spent performing reported procedures but includes the following listed in this critical care notation. Medical Decision Making - Medical Records Medical records reviewed: Yes: I reviewed the patient's medical records. - Babar Inquiry Pt receiving controlled substance: No Vital Signs: 08/07/20 23:37 08/08/20 01:15 Temperature 98.2 F 98.1 F Temperature Source Oral Oral Pulse Rate 84 Pulse Rate [Left] 84 Respiratory Rate 16 16 Blood Pressure 113/87 Blood Pressure [Left Arm] 146/81 H Blood Pressure Mean [Left Arm] 102 Blood Pressure Source Automatic Cuff Blood Pressure Source [Left Arm] Automatic Cuff Blood Pressure Position Sitting Blood Pressure Position [Left Arm] Sitting 02 Sat by Pulse Oximetry 100 98 Oxygen Delivery Method Room Air Room Air - Lab Data Lab results reviewed: Yes: I reviewed the patient's lab results. Lab Results 08/08/20 00:00: Group A Strep Rapid Negative Orders (Tests/Meds): ORDERS Category Date Time Status Strep Screen Confirmation Stat Micro 08/08/20 00:00 Received General Adult HPI - General Chief complaint: PAIN Stated complaint: tested for strep Time Seen by Provider: 08/08/20 01:25 Mode of Arrival: Ambulatory Source of Information: Patient, Medical Record Limitations: No Limitations Description of Symptoms (Recalled from ER Triage Doc. by RN): patient would like to have strep screen, since she thinks daughter has strep. States she started antibotic yesterday for ear infection. - History of Present Illness HPI narrative: mother with sore throat on abx for ear infection - no rash or cough Onset (ago): day(s) Severity: moderate Associated symptoms: denies other symptoms Treatments prior to arrival: none - Related Data Home Medications Medication Instructions Recorded Confirmed Amoxicillin [Amoxicillin 500mg Tab] 500 mg PO TID 08/07/20 08/07/20 Allergies Allergy/AdvReac Type Severity Reaction Status Date / Time No Known Drug Allergies Allergy Unknown Verified 08/06/20 17:51 [NKDA] [facility] History - Hepatitis A Screen Drug use history?: No High risk sexual behaviors?: No History of sexually transmitted infection?: No Currently employed?: No Childcare worker?: No Do you have indoor plumbing?: No Do you have electricity?: No Attestation statement:: This patient has been screened for Hepatitis A risk factors. I have reviewed the patient's past medical history: Yes 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: Reports:: Asthma Denies:: Diabetes Mellitus Type 1, Diabetes Mellitus Type 2 Other Surgeries: Yes: Amputation: No Fractures: No - Social History Smoking Status: Heavy tobacco smoker Tobacco Type: smokeless tobacco # Packs/Day (cigarettes): 5 Alcohol Intake: never Substance Use Type: denies use Occupational Status: other Housing: apartment Household Members: children Family Hx:: Non-contributory ROS Obtained: Yes All systems reviewed & no additional complaints - Constitutional Constitutional: Denies fever(s) - Eyes Eyes: Denies eye discharge - ENT Ears, Nose, Mouth, and Throat: Reports as per HPI, Reports sore throat - Cardiovascular Cardiovascular: Denies chest pain - Respiratory Respiratory: Denies cough
[2020-08-08 01:55] VITALS: BP 113/87; PULSE 84; RESP 16; TEMP 36.7; O2SAT 98
== END 2020-08-08 01:57 | disposition home or self-care (01) ==
PROVIDERS: Emergency Provider Emergency Medicine; PCP Emergency Medicine
DX: J02.9 Acute pharyngitis, unspecified (principal); J45.909 Unspecified asthma, uncomplicated; F17.290 Nicotine dependence, other tobacco product, uncomplicated
CPT/HCPCS: 87430; 99282

== ENCOUNTER → 2020-08-11 14:14 | Outpatient (CLI) | payer MEDICAID, SELFPAY ==
[2020-08-11 16:10] LABS: Basophils # 0.1 K/mm3 (0-0.2); Basophils % 0.5 % (0.1-2.0); Eosinophils % 0.4 % (0.1-12.0); Hematocrit 41.8 % (37.0-47.0); Hemoglobin 14.1 g/dL (12.2-16.2); Lymphocytes # 1.4 K/mm3 (0.7-4.5); Lymphocytes % 15.4 % (10-50); Mean Corpuscular HGB Conc 33.8 g/dL (31.8-35.4); Mean Corpuscular Hemoglobin 31.4 pg (27.0-31.2); Monocytes # 0.6 K/mm3 (0.1-1.0); Monocytes % 6.6 % (1.7-9.3); Neutrophils # 6.8 K/mm3 (1.8-7.8); Neutrophils % 77.1 % (37.0-80.0); Platelet Count 479 K/mm3 (142-424); Red Blood Count 4.49 M/mm3 (4.20-5.40); White Blood Count 8.8 K/mm3 (4.8-10.8)
[2020-08-11 16:15] LABS: Alanine Aminotransferase 15 U/L (12-78); Albumin Level 5.1 g/dl (3.5-5.0); Albumin/Globulin Ratio 1.6 (1.1-1.8); Alkaline Phosphatase 81 U/L (38-126); Anion Gap 14.7 mEq/L (5-15); Aspartate Amino Transferase 29 U/L (14-36); Bilirubin,Total 0.7 mg/dl (0.2-1.3); Blood Urea Nitrogen 4 mg/dl (7-17); Calcium 10.1 mg/dl (8.4-10.2); Carbon Dioxide 29 mmol/L (22.0-30.0); Chloride 101 mmol/L (98-107); Chol/HDL Ratio 2.2 (1-3.5); Cholesterol 119 mg/dl (140-200); Estimated Glomerular Filt Rate 150 ml/min (>60); GFR (African American) 182 ML/MIN (>60); Globulin 3.1 g/dL (1.3-3.2); Glucose 99 mg/dl (74-100); HDL Cholesterol 53 mg/dl (40-60); Lactate Dehydrogenase 187 U/L (313-618); Potassium 3.7 mmoL/L (3.5-5.1); Sodium 141 mmol/L (136-145); Total Protein,Serum 8.2 g/dl (6.3-8.2); Triglycerides 41 mg/dl (30-150); VLDL Cholesterol 8 mg/dL (0-40)
[2020-08-11 16:26] LABS: Direct LDL Cholesterol 44.91 mg/dL (100-129)
[2020-08-11 16:31] LABS: Free T4 (Free Thyroxine) 1.31 ng/dl (0.78-2.19)
[2020-08-11 16:32] LABS: 25-OH Vitamin D, Total 27.2 ng/mL (30-100)
[2020-08-11 16:42] LABS: Thyroid Stimulating Hormone 0.87 uIU/mL (0.465-4.68)
[2020-08-13 10:50] LABS: FSH 6.5 mIU/mL (.); Progesterone 0.1 ng/mL (.)
[2020-08-22 10:36] LABS: Estrogen 109 pg/mL (.)
== END ==
PROVIDERS: Visit Provider Emergency Medicine
DX: Z00.00 Encounter for general adult medical examination without abnormal findings (principal); E55.9 Vitamin D deficiency, unspecified
CPT/HCPCS: 80053; 80061; 82306; 82672; 83001; 83615; 84144; 84439; 84443; 85025

== ENCOUNTER 2020-08-21 18:26 | Emergency (ER) | payer MEDICAID, SELFPAY ==
[2020-08-21 18:57] VITALS: BP 141/88; PULSE 84; RESP 19; TEMP 36.6; O2SAT 99; BMI 26.1
--- NOTE | 2020-08-21 19:18 | HMH.EDUTC ---
[facility] [place]ression: Otitis media Qualifiers: Otitis media type: unspecified Laterality: left Qualified Code(s): H66.92 - Otitis media, unspecified, left ear Disposition: Home, Self-Care Condition on Discharge: Good Instructions: Middle Ear Infection, Amoxicillin and Clavulanic Acid Additional Instructions: Monitor Temp, Over the counter Motrin or Tylenol as directed/as needed Tylenol every 4 hours and Motrin every 6 hours (as long as your family doctor has told you that you can take it) for fever or pain. and straight to ER if unable to lower temp less than 101.0 after medication given *Warm salt water gargles may help to soothe the throat and help with gum and tooth pain *Sleep elevated *Humidifier/Vaporizer *Flonase 2 sprays in each nostril daily but be aware that it may take 2-3 days before you notice improvement Take medication as prescribed Follow up if needed Follow up IMMEDIATELY for new or worsening symptoms or no Noticeable improvement over the next 48-72 hours. 911 for difficulty breathing or swallowing Prescriptions: Amoxicillin/Potassium Clav [Augmentin 875-125 Tablet] 1 tab PO Q12H 10 Days #20 tab Transmission Status: Pending to [facility] Fluticasone Propionate [Flonase 50mcg nasal spray 16gm] 1 spr NS DAILY #1 bottle Transmission Status: Pending to [facility] Referrals: Mike Reyes MD [Primary Care Provider] - As needed Time of Disposition: 19:34 Medical Decision Making - Babar Inquiry Pt receiving controlled substance: No Babar was queried for this patient: No Vital Signs: 08/21/20 18:57 Temperature 97.9 F Temperature Source Oral Pulse Rate [Right] 84 Respiratory Rate 19 Blood Pressure [Right Arm] 141/88 H Blood Pressure Mean [Right Arm] 105 Blood Pressure Source [Right Arm] Automatic Cuff Blood Pressure Position [Right Arm] Sitting 02 Sat by Pulse Oximetry 99 Oxygen Delivery Method Room Air [facility] [place] - General Stated complaint: left earache Time Seen by Provider: 08/21/20 19:18 Mode of Arrival: Ambulatory Source of Information: Patient Limitations: No Limitations Description of Symptoms (Recalled from Triage Doc. by RN): pt c/o a L ear ache and tooth pain HEENT Symptoms (Recalled from RN notes): Yes (L ear ache and tooth pain) Resp Symptoms (Recalled from RN notes): No Skin Symptoms (Recalled from RN notes): No MS Symptoms (Recalled from RN notes): No Functional Status (Recalled from RN notes): na - History of Present Illness Provider Complaint: Patient states that she has been having pain in her left ear State that she was seen and treated for ear infection a few weeks ago and finished antibiotics but ear pain has returned and worse than before States that she is not sure if it is her ear or her tooth but pain is throbbing in left ear - Related Data Home Medications Medication Instructions Recorded Confirmed Amoxicillin [Amoxicillin 500mg Tab] 500 mg PO TID 08/07/20 08/11/20 Previous Rx's Medication Instructions Recorded Amoxicillin/Potassium Clav 1 tab PO Q12H 10 Days #20 tab 08/21/20 [Augmentin 875-125 Tablet] Fluticasone Propionate [Flonase 1 spr NS DAILY #1 bottle 08/21/20 50mcg nasal spray 16gm] Allergies Allergy/AdvReac Type Severity Reaction Status Date / Time No Known Drug Allergies Allergy Unknown Verified 08/21/20 19:02 [NKDA] - Worker's Comp Is this a Worker's Comp case?: No [facility] History - Hepatitis A Screen Drug use history?: No High risk sexual behaviors?: No History of sexually transmitted infection?: No Currently employed?: No Childcare worker?: No Do you have indoor plumbing?: Yes Do you have electricity?: Yes Attestation statement:: This patient has been screened for Hepatitis A risk factors. I have reviewed the patient's past medical history: Yes 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: Reports:: Asthma Denies:: Diabetes Mellitus Type 1, Diabetes Mellitus Type 2 Other Surgeries: Yes: C-sect
[2020-08-21 21:01] VITALS: BP 000/00; PULSE 0; RESP 16; TEMP 36.8
== END 2020-08-21 21:01 | disposition home or self-care (01) ==
PROVIDERS: Emergency Provider Nurse Practitioner; PCP Emergency Medicine
DX: H66.92 Otitis media, unspecified, left ear (principal); J45.909 Unspecified asthma, uncomplicated; F17.210 Nicotine dependence, cigarettes, uncomplicated
CPT/HCPCS: 99202; G0463

== ENCOUNTER 2020-09-04 18:56 | Emergency (ER) | payer MEDICAID, SELFPAY ==
[2020-09-04 19:00] VITALS: BP 138/71; PULSE 81; RESP 19; TEMP 37; O2SAT 98; BMI 29.0
[2020-09-04 19:25] LABS: UTC Strep Screen (Rapid) Negative (Negative)
--- NOTE | 2020-09-04 19:27 | HMH.EDUTC ---
[facility] [place] Clinical Impression: Upper respiratory infection, viral Disposition: Home, Self-Care Condition on Discharge: Good Instructions: DI for Viral Upper Respiratory Infection -- Adult Additional Instructions: No sign of a bacterial infection. Likely viral. Viruses can take 7-14 days to run their course. Nasal saline and bulb syringe or nose Vanessa to remove nasal drainage to help with nasal congestion. Hard to eat, drink, sleep with nasal congestion so important to keep this cleaned out. Monitor temp. Tylenol or Motrin as needed for pain or fever Encourage fluids, water, Gatorade, Powerade, Pedialyte if /toddler/child Warm salt water gargles Warm fluids Sore throat lozenges Sleep elevated Humidifier/vaporizer covid swab sent to lab call for results, self isolate until test results are known to be neg Follow-up immediately for new or worsening symptoms or no noticeable improvement over the next 48-72 hours. Referrals: Mike Reyes MD [Primary Care Provider] - Time of Disposition: 19:34 Medical Decision Making - Babar Inquiry Pt receiving controlled substance: No Vital Signs: 09/04/20 19:00 Temperature 98.6 F Temperature Source Oral Pulse Rate [Right Brachial] 81 Respiratory Rate 19 Blood Pressure [Right Arm] 138/71 Blood Pressure Mean [Right Arm] 93 Blood Pressure Source [Right Arm] Automatic Cuff Blood Pressure Position [Right Arm] Sitting 02 Sat by Pulse Oximetry 98 Oxygen Delivery Method Room Air - Lab Data Lab Results 09/04/20 19:23: Strep Scn Rapid Clinic Negative Orders (Tests/Meds): ORDERS Category Date Time Status Strep Screen Confirmation Stat Micro 09/04/20 19:23 Received [facility] [place] HPI - General Chief complaint: Urgent [facility] Stated complaint: congestion Time Seen by Provider: 09/04/20 19:27 Mode of Arrival: Ambulatory Source of Information: Patient Limitations: No Limitations Description of Symptoms (Recalled from Triage Doc. by RN): PATIENT C/O SORE THROAT, CONGESTION SINCE THIS MORNING HEENT Symptoms (Recalled from RN notes): Yes Resp Symptoms (Recalled from RN notes): No Skin Symptoms (Recalled from RN notes): No MS Symptoms (Recalled from RN notes): No Functional Status (Recalled from RN notes): WNL - History of Present Illness Provider Complaint: 25 yr old female presents for sore throat, nasal congestion, howe, and cough. pt states she has pain in chest with coughing - Related Data Allergies Allergy/AdvReac Type Severity Reaction Status Date / Time No Known Drug Allergies Allergy Unknown Verified 08/21/20 19:02 [NKDA] - Worker's Comp Is this a Worker's Comp case?: No H History - Hepatitis A Screen Drug use history?: No High risk sexual behaviors?: No History of sexually transmitted infection?: No Currently employed?: No Childcare worker?: No Do you have indoor plumbing?: Yes Do you have electricity?: Yes Attestation statement:: This patient has been screened for Hepatitis A risk factors. I have reviewed the patient's past medical history: Yes 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: Reports:: Asthma Denies:: Diabetes Mellitus Type 1, Diabetes Mellitus Type 2 Other Surgeries: Yes: Amputation: No Fractures: No - Social History Smoking Status: Never smoker Tobacco Type: smokeless tobacco # Packs/Day (cigarettes): 0 Alcohol Intake: never Substance Use Type: denies use Occupational Status: other Housing: apartment Household Members: children Family Hx:: No significant family history ROS Obtained: Yes Systems reviewed as appropriate & no additional complaints - Constitutional Constitutional: Reports system reviewed and no additional complaints, except as docu, Denies chills - Eyes Eyes: Reports system reviewed and no additional complaints, except as docu, Denies blurry vision - ENT Ears, Nose, Mouth, and Throat: Reports system reviewed and no additional complaints, except as docu, Reports otalgia, Reports n
[2020-09-04 19:40] VITALS: BP 138/71; PULSE 81; RESP 19; TEMP 37; O2SAT 98
[2020-09-04 19:41] LABS: Adenovirus,PCR Not Detected (NotDetected); Bordetella Pertussis Not Detected (NotDetected); Chlamydophila Pneumoniae, PCR Not Detected (NotDetected); Coronavirus 19, PCR Not Detected (NotDetected); Coronavirus 229E Not Detected (NotDetected); Coronavirus NL63 Not Detected (NotDetected); Coronavirus OC43 Not Detected (NotDetected); Coronovirus HKU1,PCR Not Detected (NotDetected); Human Metapneumovirus Not Detected (NotDetected); Influenza A, PCR Not Detected (NotDetected); Influenza AH1, 2009 Not Detected (NotDetected); Influenza AH1, PCR Not Detected (NotDetected); Influenza AH3,PCR Not Detected (NotDetected); Influenza B, PCR Not Detected (NotDetected); Mycoplasma Pneumoniae, PCR Not Detected (NotDetected); Parainfluenza 1, PCR Not Detected (NotDetected); Parainfluenza 2, PCR Not Detected (NotDetected); Parainfluenza 3, PCR Not Detected (NotDetected); Parainfluenza 4, PCR Not Detected (NotDetected); Respiratory Syncytial Virus Not Detected (NotDetected); Rhinovirus/Enterovirus Not Detected (NotDetected)
== END 2020-09-04 19:43 | disposition home or self-care (01) ==
PROVIDERS: Emergency Provider Nurse Practitioner Family; PCP Emergency Medicine
DX: J06.9 Acute upper respiratory infection, unspecified (principal); J30.9 Allergic rhinitis, unspecified
CPT/HCPCS: 87581; 87633; 87798; 87880; 99202; G0463

== ENCOUNTER 2020-09-08 14:36 | Emergency (ER) | payer MEDICAID, SELFPAY ==
[2020-09-08 15:02] VITALS: BP 139/79; PULSE 81; RESP 18; TEMP 36.7; O2SAT 96; BMI 27.8
--- NOTE | 2020-09-08 15:15 | HMH.EDUTC ---
[facility] [place] Clinical Impression: Allergic rhinitis Qualifiers: Allergic rhinitis trigger: unspecified Allergic rhinitis seasonality: unspecified Qualified Code(s): J30.9 - Allergic rhinitis, unspecified Disposition: Home, Self-Care Condition on Discharge: Good Instructions: Sore Throat, DI for Cough -- Adult, DI for Nasal Congestion Additional Instructions: *Monitor Temp, Over the counter Motrin or Tylenol as directed/as needed Tylenol every 4 hours and Motrin every 6 hours (as long as your family doctor has told you that you can take it) for fever or pain. and straight to ER if unable to lower temp less than 101.0 after medication given *Warm salt water gargles may help to soothe the throat *Throat Lozenges *Warm fluids like tea with honey may help to soothe the throat *Sleep elevated *Humidifier/Vaporizer *Flonase 2 sprays in each nostril daily but be aware that it may take 2-3 days before you notice improvement Your throat swab was sent for culture. Those results are typically sent to your primary care. Be sure to follow up in 2-3 days with your family doctor/primary care physician if no improvement so they can review those result and treat if necessary. If you don?t have a primary care doctor, I recommend you get one but in the mean time, you will have to return to a walk in clinic Follow up IMMEDIATELY for new or worsening symptoms or no Noticeable improvement over the next 48-72 hours. 911 for difficulty breathing or swallowing Prescriptions: guaiFENesin [Mucinex 600mg tablet] 600 mg PO BID PRN #10 tab.er.12h PRN Reason: Congestion Transmission Status: Pending to [facility] Cetirizine HCl [Zyrtec 10mg ODT*] 10 mg PO DAILY #30 tab Transmission Status: Pending to [facility] Referrals: Mike Reyes MD [Primary Care Provider] - As needed Time of Disposition: 15:36 Medical Decision Making - Babar Inquiry Pt receiving controlled substance: No Babar was queried for this patient: No Vital Signs: 09/08/20 15:02 09/08/20 15:27 Temperature 98.1 F 98 F Temperature Source Oral Pulse Rate 84 Pulse Rate [Right] 81 Respiratory Rate 18 18 Blood Pressure 130/83 Blood Pressure [Right Arm] 139/79 Blood Pressure Mean [Right Arm] 99 Blood Pressure Source [Right Arm] Automatic Cuff Blood Pressure Position [Right Arm] Sitting 02 Sat by Pulse Oximetry 96 Oxygen Delivery Method Room Air [facility] [place] - General Stated complaint: congestion, rt ear pain Time Seen by Provider: 09/08/20 15:15 Mode of Arrival: Ambulatory Source of Information: Patient Limitations: No Limitations Description of Symptoms (Recalled from Triage Doc. by RN): pt c/o a croupy cough, chest congestion, ear ache and sore throat that has been ongoing for 2 months. HEENT Symptoms (Recalled from RN notes): Yes (ear ache sore throat) Resp Symptoms (Recalled from RN notes): Yes (cough) Skin Symptoms (Recalled from RN notes): No MS Symptoms (Recalled from RN notes): No Functional Status (Recalled from RN notes): na - History of Present Illness Provider Complaint: Patient state that she has been having pain in her right ear, cough sore throat, nasal congestion on and off for couple months and has been treated multiple times for ear infection State that she is still having cough, nasal congestion pain in her right ear and sore throat State that she has finished all her antibiotics and then it comes back States that she was worried that she may have strep throat and wanted to get checked - Related Data Previous Rx's Medication Instructions Recorded Fluticasone Propionate [Flonase 1 spr NS DAILY #1 bottle 09/05/20 50mcg nasal spray 16gm] Cetirizine HCl [Zyrtec 10mg ODT*] 10 mg PO DAILY #30 tab 09/08/20 guaiFENesin [Mucinex 600mg tablet] 600 mg PO BID PRN #10 tab.er.12h 09/08/20 Allergies Allergy/AdvReac Type Severity Reaction Status Date / Time No Known Drug Allergies Allergy Unknown Verified 08/21/20 19:02 [NKDA
[2020-09-08 15:27] VITALS: BP 130/83; PULSE 84; RESP 18; TEMP 36.6
[2020-09-08 21:37] LABS: UTC Strep Screen (Rapid) Negative (Negative)
== END 2020-09-08 15:43 | disposition home or self-care (01) ==
PROVIDERS: Emergency Provider Nurse Practitioner; PCP Emergency Medicine
DX: J30.9 Allergic rhinitis, unspecified (principal); J06.9 Acute upper respiratory infection, unspecified
CPT/HCPCS: 87880; 99202; G0463

== ENCOUNTER 2020-10-02 16:03 | Emergency (ER) | payer MEDICAID, SELFPAY ==
[2020-10-02 16:05] VITALS: BP 150/99; PULSE 86; RESP 18; TEMP 36.9; O2SAT 98; BMI 27.3
--- NOTE | 2020-10-02 16:23 | HMH.EDUTC ---
[facility] [place] Disposition Clinical Impression: Muscle spasm Disposition: Home, Self-Care Condition on Discharge: Good Instructions: Prednisone, Methocarbamol, DI for Muscle Spasm Additional Instructions: *Ibuprofen rachael 6 hours with meal as needed for pain/inflammation *Not additional anti-inflammatory like motrin, aleve, advil with the above amount of ibuprofen. You can still take Tylenol every 4 hours as needed if you need something else for pain *moist heat every 20 minutes 3-4 times a day to affected area *Muscle relaxer every 8 hours as needed for muscle spasms but remember, it WILL cause drowsiness You cannot take it and drive, operate machinery or care for small children. *Keep this area active, no movement leads to more stiffness, However take it easy and avoid heavy lifting pushing or pulling *Follow up with you family doctor if no improvement for further treatment Prescriptions: predniSONE [Deltasone 10mg tablet] 10 mg PO BID 5 Days #10 tab Transmission Status: Received by [facility] Etodolac 200 mg PO Q8H PRN #15 cap PRN Reason: Moderate Pain Transmission Status: Received by [facility] methocarbamoL [Methocarbamol 500mg Tablet] 500 mg PO BID PRN #10 tab PRN Reason: Muscle Spasm Transmission Status: Received by [facility] Referrals: Mike Reyes MD [Primary Care Provider] - As needed Time of Disposition: 16:54 Medical Decision Making - Babar Inquiry Pt receiving controlled substance: No Babar was queried for this patient: No Vital Signs: 10/02/20 16:05 10/02/20 16:25 10/02/20 16:50 Temperature 98.5 F 98.5 F Temperature Source Oral Pulse Rate 86 Pulse Rate [Right Brachial] 86 Respiratory Rate 18 18 Blood Pressure 136/97 H Blood Pressure [Right Arm] 150/99 H 136/97 H Blood Pressure Mean [Right Arm] 116 110 Blood Pressure Source [Right Arm] Automatic Cuff Automatic Cuff Blood Pressure Position [Right Arm] Sitting Sitting 02 Sat by Pulse Oximetry 98 Oxygen Delivery Method Room Air Medical Decision Narrative: Patient states that she is currently on her Menstrual Period States that she is no longer having sore spot on the top of her head but still having spasm like pain in the right side of her neck that goes into shoulder and at times with certain movements shoots down her arm and causing electricity type of pain State that arm feels achy and hurts with movement discussed xray and patient states that she has not fallen or anything [facility] [place] HPI - General Stated complaint: pain in R side of head and Arm Time Seen by Provider: 10/02/20 16:23 Mode of Arrival: Ambulatory Source of Information: Patient Limitations: No Limitations Description of Symptoms (Recalled from Triage Doc. by RN): PATIENT C/O PAIN TO RIGHT SIDE OF HEAD/NECK AND IN RIGHT SHOULDER AND ARM X 3 DAYS. NO KNOWN INJURY HEENT Symptoms (Recalled from RN notes): Yes Resp Symptoms (Recalled from RN notes): No Skin Symptoms (Recalled from RN notes): No MS Symptoms (Recalled from RN notes): No Functional Status (Recalled from RN notes): WNL - History of Present Illness Provider Complaint: Patient states that she woke up about 3-4 days ago and was having pain on the right side of her neck, shoulder and radiating down arm States that pain is worse when she moves it raises it and thinks she may have slept on it wrong States that she did have a sore spot on the right side of the top of her head but it is better now and not having any pain there today State that at times it feels like pain and tingly feeling shoots down her arm States that she does have history of buldging disks - Related Data Home Medications Medication Instructions Recorded Confirmed Fluticasone Propionate 2 spray INTRANASAL DAILY 10/02/20 10/02/20 Previous Rx's Medication Instructions Recorded Etodolac 200 mg PO Q8H PRN #15 cap 10/02/20 methocarbamoL [Methocarbamol 500mg 500 mg PO BID PRN #10 tab 10/02/20 Tablet]
[2020-10-02 16:25] VITALS: BP 136/97
[2020-10-02 16:50] VITALS: BP 136/97; PULSE 86; RESP 18; TEMP 36.9; O2SAT 98
== END 2020-10-02 16:59 | disposition home or self-care (01) ==
PROVIDERS: Emergency Provider Nurse Practitioner; PCP Emergency Medicine
DX: M62.838 Other muscle spasm (principal); M54.2 Cervicalgia
CPT/HCPCS: 99202; G0463

== ENCOUNTER → 2020-11-30 16:37 | Outpatient (CLI) | payer MEDICAID, SELFPAY | PROVIDERS: Visit Provider Nurse Practitioner Family | DX: Z20.822 Contact with and (suspected) exposure to COVID-19 (principal); J02.9 Acute pharyngitis, unspecified | CPT/HCPCS: U0003 ==

== ENCOUNTER → 2021-01-11 14:54 | Outpatient (CLI) | payer MEDICAID, SELFPAY | PROVIDERS: PCP Emergency Medicine; Visit Provider Nurse Practitioner | DX: Z20.822 Contact with and (suspected) exposure to COVID-19 (principal); U07.1 COVID-19 | CPT/HCPCS: C9803; U0003; U0005 ==

== ENCOUNTER 2021-02-27 18:52 | Emergency (ER) | payer MEDICAID, SELFPAY ==
[2021-02-27 19:40] VITALS: BP 119/81; PULSE 93; RESP 16; TEMP 36.7; O2SAT 97; BMI 28.1
--- NOTE | 2021-02-27 20:44 | HMH.EDUTC ---
[facility] [place] Impression: Sinusitis Qualifiers: Sinusitis location: unspecified location Chronicity: acute Recurrence: non-recurrent Qualified Code(s): J01.90 - Acute sinusitis, unspecified Otitis media Qualifiers: Otitis media type: suppurative Chronicity: acute Laterality: bilateral Recurrence: non-recurrent Spontaneous tympanic membrane rupture: without spontaneous rupture Qualified Code(s): H66.003 - Acute suppurative otitis media without spontaneous rupture of ear drum, bilateral Disposition: Home, Self-Care Condition on Discharge: Good Instructions: Sinusitis, Middle Ear Infection, DI for Sinusitis Additional Instructions: Drink plenty of fluids. Take tylenol or ibuprofen for pain or fever. Take the medications as directed. Follow up with your regular doctor. GO TO THE ER FOR ANY WORSENING SYMPTOMS Prescriptions: Brompheniramine/Pseudoephed/Dm [Bromfed Dm Cough Syrup] 5 ml PO Q6HP PRN #240 ml PRN Reason: Cough Transmission Status: Received by [facility] predniSONE [Prednisone 20mg Tab] 20 mg PO BID 4 Days #8 tab Transmission Status: Received by [facility] Azithromycin [Z-Jonas 250mg Tab*] 250 mg PO UD DOSE PK #6 tab Transmission Status: Received by [facility] Referrals: Mike Reyes MD [Primary Care Provider] - Forms: Work/School Release Time of Disposition: 20:47 Medical Decision Making - Medical Records Medical records reviewed: No: I reviewed the patient's medical records. - Babar Inquiry Pt receiving controlled substance: No Vital Signs: 02/27/21 19:40 02/27/21 20:45 Temperature 98.1 F 98.1 F Temperature Source Oral Pulse Rate 93 H Pulse Rate [Left] 93 H Respiratory Rate 16 16 Blood Pressure 119/81 Blood Pressure [Right Arm] 119/81 Blood Pressure Mean [Right Arm] 93 02 Sat by Pulse Oximetry 97 [facility] [place] - General Stated complaint: congestion Time Seen by Provider: 02/27/21 20:44 Mode of Arrival: Ambulatory Source of Information: Patient Limitations: No Limitations Description of Symptoms (Recalled from Triage Doc. by RN): pt c/o congestion and bilateral ear aches. HEENT Symptoms (Recalled from RN notes): Yes (congestion and bilateral ear aches) Resp Symptoms (Recalled from RN notes): No Skin Symptoms (Recalled from RN notes): No MS Symptoms (Recalled from RN notes): No Functional Status (Recalled from RN notes): na - History of Present Illness Provider Complaint: She states that for the past 2 days, she has had a sinus congestion, sore throat and bilateral ear pain. - Related Data Home Medications Medication Instructions Recorded Confirmed Fluticasone Propionate 2 spray INTRANASAL DAILY 10/02/20 11/30/20 Previous Rx's Medication Instructions Recorded Azithromycin [Z-Jonas 250mg Tab*] 250 mg PO UD DOSE PK #6 tab 02/27/21 Brompheniramine/Pseudoephed/Dm 5 ml PO Q6HP PRN #240 ml 02/27/21 [Bromfed Dm Cough Syrup] predniSONE [Prednisone 20mg 20 mg PO BID 4 Days #8 tab 02/27/21 Tab] Allergies Allergy/AdvReac Type Severity Reaction Status Date / Time No Known Drug Allergies Allergy Unknown Verified 11/30/20 15:18 [NKDA] - Worker's Comp Is this a Worker's Comp case?: No [facility] History - Hepatitis A Screen Drug use history?: No High risk sexual behaviors?: No History of sexually transmitted infection?: No Currently employed?: No Childcare worker?: No Do you have indoor plumbing?: Yes Do you have electricity?: Yes Attestation statement:: This patient has been screened for Hepatitis A risk factors. I have reviewed the patient's past medical history: Yes 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: Reports:: Asthma Denies:: Diabetes Mellitus Type 1, Diabetes Mellitus Type 2 Other Surgeries: Yes: Amputation: No Fractures: No - Social History Smoking Status: Never smoker Tobacco Type: smokeless tobacco # Packs/Day (cigarettes): 0 Alcohol Intake: never Substance Use Type: denies use O
[2021-02-27 20:45] VITALS: BP 119/81; PULSE 93; RESP 16; TEMP 36.7
== END 2021-02-27 21:00 | disposition home or self-care (01) ==
PROVIDERS: Emergency Provider Nurse Practitioner Family; PCP Emergency Medicine
DX: J01.90 Acute sinusitis, unspecified (principal); H66.003 Acute suppurative otitis media without spontaneous rupture of ear drum, bilateral; J45.909 Unspecified asthma, uncomplicated
CPT/HCPCS: 99202; G0463

== ENCOUNTER → 2021-04-12 15:37 | Outpatient (CLI) | payer MEDICAID, SELFPAY | PROVIDERS: PCP Emergency Medicine; Visit Provider Nurse Practitioner | DX: Z20.822 Contact with and (suspected) exposure to COVID-19 (principal) | CPT/HCPCS: C9803; U0003; U0005 ==

== ENCOUNTER 2021-04-12 15:47 | Emergency (ER) | payer MEDICAID, SELFPAY ==
[2021-04-12 16:10] VITALS: BP 123/75; PULSE 82; RESP 18; TEMP 36.9; O2SAT 98; BMI 29.0
[2021-04-12 16:38] LABS: UTC Strep Screen (Rapid) Positive (Negative)
--- NOTE | 2021-04-12 16:52 | HMH.EDUTC ---
[facility] – [place] Disposition Clinical Impression: Strep throat Disposition: Home, Self-Care Condition on Discharge: Good Instructions: DI for Strep Throat, Strep Throat, Amoxicillin Additional Instructions: *Monitor Temp, Over the counter Motrin or Tylenol as directed/as needed Tylenol every 4 hours and Motrin every 6 hours (as long as your family doctor has told you that you can take it) for fever or pain. and straight to ER if unable to lower temp less than 101.0 after medication given *Warm salt water gargles may help to soothe the throat *Throat Lozenges *Warm fluids like tea with honey may help to soothe the throat *Sleep elevated *Humidifier/Vaporizer *If you did not take Penicillin shot or was unable to, start taking antibiotic immediately and make sure that you take it for the FULL length of time although you should start to feel better in 24-48 hours *change toothbrush and toothpaste 24-48 hours after starting to take antibiotics so you do not reinfect yourself Monitor Temp. Tylenol and/or Ibuprofen as needed. ER if fever is no less than 101 despite alternating Tylenol and Ibuprofen * Encourage fluids, water, Gatorade, powerade, pedialyte if /toddler/or child *Cold fluids, popsicles and ice cream may feel good on his throat Follow up IMMEDIATELY for new or worsening symptoms or no Noticeable improvement over the next 48-72 hours. 911 for difficulty breathing or swallowing Prescriptions: Amoxicillin [Amoxicillin 500mg Cap] 500 mg PO TID #30 cap Transmission Status: Pending to [facility] Brompheniramine/Pseudoephed/Dm [Bromfed Dm Cough Syrup] 5 - 10 ml PO Q46H PRN #200 ml PRN Reason: Cough Transmission Status: Pending to [facility] Referrals: Mike Reyes MD [Primary Care Provider] - As needed Forms: Work/School Release Time of Disposition: 17:00 Medical Decision Making - Babar Inquiry Pt receiving controlled substance: No Babar was queried for this patient: No Vital Signs: 04/12/21 16:10 Temperature 98.5 F Temperature Source Oral Pulse Rate [Right Brachial] 82 Respiratory Rate 18 Blood Pressure [Right Arm] 123/75 Blood Pressure Mean [Right Arm] 91 Blood Pressure Source [Right Arm] Automatic Cuff Blood Pressure Position [Right Arm] Sitting 02 Sat by Pulse Oximetry 98 Oxygen Delivery Method Room Air - Lab Data Lab results reviewed: Yes: I reviewed the patient's lab results. Lab Results 04/12/21 16:27: Strep Scn Rapid Clinic Positive A Medical Decision Narrative: denies [facility] [place] HPI - General Stated complaint: sore throat,cough,congestion Time Seen by Provider: 04/12/21 16:52 Mode of Arrival: Ambulatory Source of Information: Patient Limitations: No Limitations Description of Symptoms (Recalled from Triage Doc. by RN): PATIENT C/O SORE THROAT AND CONGESTION X 2 DAYS HEENT Symptoms (Recalled from RN notes): Yes Resp Symptoms (Recalled from RN notes): No Skin Symptoms (Recalled from RN notes): No MS Symptoms (Recalled from RN notes): No Functional Status (Recalled from RN notes): WNL - History of Present Illness Provider Complaint: Patient states that she has been having sore throat nasal congestion and headache State that she feels like she does when she gets strep throat States that today she was feeling worse so she came in to get checked - Related Data Previous Rx's Medication Instructions Recorded Amoxicillin [Amoxicillin 500mg 500 mg PO TID #30 cap 04/12/21 Cap] Brompheniramine/Pseudoephed/Dm 5 - 10 ml PO Q46H PRN #200 ml 04/12/21 [Bromfed Dm Cough Syrup] Allergies Allergy/AdvReac Type Severity Reaction Status Date / Time No Known Drug Allergies Allergy Unknown Verified 11/30/20 15:18 [NKDA] - Worker's Comp Is this a Worker's Comp case?: No [facility] History - Hepatitis A Screen Drug use history?: No High risk sexual behaviors?: No History of sexually transmitted infection?: No Currently employed?: N
[2021-04-12 17:06] VITALS: BP 123/75; PULSE 82; RESP 18; TEMP 36.9; O2SAT 98
== END 2021-04-12 17:11 | disposition home or self-care (01) ==
PROVIDERS: Emergency Provider Nurse Practitioner; PCP Emergency Medicine
DX: J02.0 Streptococcal pharyngitis (principal); Z20.822 Contact with and (suspected) exposure to COVID-19
CPT/HCPCS: 87880; 99202; G0463

== ENCOUNTER → 2021-05-28 08:11 | Outpatient (CLI) | payer MEDICAID, SELFPAY | PROVIDERS: Visit Provider Nurse Practitioner | DX: Z20.822 Contact with and (suspected) exposure to COVID-19 (principal) | CPT/HCPCS: C9803; U0003; U0005 ==

== ENCOUNTER 2021-07-02 04:14 | Emergency (ER) | payer MEDICAID, SELFPAY ==
[2021-07-02 04:14] VITALS: BP 141/95; PULSE 93; RESP 18; TEMP 36.9; O2SAT 99; BMI 28.3
--- NOTE | 2021-07-02 04:15 | ECG_ITS ---
APPROVED REPORT Exam: Resting ECG HR:89 bpm ECG Measurements Heart Rate [address] 146 P 50 QRSd 86 QRS 74 QT 365 T 61 QTc 411 Conclusion SINUS RHYTHM WITH SINUS ARRHYTHMIA NORMAL ECG UNCONFIRMED REPORT Electronically signed by : Marlon Singleton MD 07/03/2021 07:49:55
[2021-07-02 04:16] VITALS: BMI 28.3
--- NOTE | 2021-07-02 04:16 | XR_ITS ---
PROCEDURE INFORMATION: Exam: XR Chest Exam date and time: 07/02/2021 4:41 AM Age: 26 years old Clinical indication: Sternal or substernal pain; Additional info: Chest pain TECHNIQUE: Imaging protocol: XR of the chest. Views: 2 views. COMPARISON: CR XR CHEST 2V 06/09/2020 7:53 PM FINDINGS: Lungs: Unremarkable. No consolidation. Pleural spaces: Unremarkable. No pleural effusion. No pneumothorax. Heart/Mediastinum: Unremarkable. No cardiomegaly. Bones/joints: Unremarkable. IMPRESSION: No acute findings.
[2021-07-02 04:29] LABS: Basophils # 0.2 K/mm3 (0-0.2); Basophils % 1.3 % (0.1-2.0); Eosinophils # 0.1 K/mm3 (0.0-0.4); Eosinophils % 1.2 % (0.1-12.0); Hematocrit 44.3 % (37.0-47.0); Lymphocytes # 3.4 K/mm3 (0.7-4.5); Lymphocytes % 28.3 % (10-50); Mean Corpuscular HGB Conc 31.6 g/dL (31.8-35.4); Mean Platelet Volume 8.2 fl (7.4-10.4); Monocytes # 0.8 K/mm3 (0.1-1.0); Monocytes % 6.5 % (1.7-9.3); Neutrophils # 7.5 K/mm3 (1.8-7.8); Neutrophils % 62.7 % (37.0-80.0); Platelet Count 548 K/mm3 (142-424); Red Blood Count 4.52 M/mm3 (4.20-5.40); Red Cell Distribution Width 13.6 % (11.5-17.5); White Blood Count 11.9 K/mm3 (4.8-10.8)
[2021-07-02 04:31] LABS: Coronavirus 19, PCR Not Detected (NotDetected); Influenza A, PCR Not Detected (NotDetected); Influenza B, PCR Not Detected (NotDetected)
[2021-07-02 04:37] LABS: Chloride 103 mmol/L (98-107); Sodium 140 mmol/L (136-145)
[2021-07-02 04:38] LABS: Potassium 3.9 mmoL/L (3.5-5.1)
[2021-07-02 04:40] LABS: Alanine Aminotransferase 17 U/L (12-78); Alkaline Phosphatase 86 U/L (38-126); Anion Gap 13.9 mEq/L (5-15); Aspartate Amino Transferase 30 U/L (14-36); Bilirubin,Direct 0.3 mg/dl (0.0-0.4); Bilirubin,Indirect 0.2 mg/dL (0.0-0.9); Bilirubin,Total 0.5 mg/dl (0.2-1.3); Bilirubin,Unconjugated 0.2 mg/dL (0.0-1.1); Blood Urea Nitrogen 10 mg/dl (7-17); Calcium 8.8 mg/dl (8.4-10.2); Carbon Dioxide 27 mmol/L (22.0-30.0); Creatinine Clearance Estimated 227 mL/min (50-200); Estimated Glomerular Filt Rate 149 ml/min (>60); GFR (African American) 180 ML/MIN (>60); Glucose 109 mg/dl (74-100); HCG Qualitative, Serum Negative (Negative); Lipase 128 U/L (23-300)
[2021-07-02 04:41] LABS: Albumin Level 4.6 g/dl (3.5-5.0); Total Protein,Serum 7.7 g/dl (6.3-8.2)
[2021-07-02 04:46] LABS: C-Reactive Protein 1.6 mg/L (0-4)
--- NOTE | 2021-07-02 04:48 | PC.NURSE ---
Pt gone to RAD
--- NOTE | 2021-07-02 04:51 | PC.NURSE ---
Pt back from RAD
[2021-07-02 04:58] LABS: Troponin I < 0.01 ng/ml (0.00-0.034)
--- NOTE | 2021-07-02 05:16 | HMH.EDCP ---
ED Disposition Clinical Impression: Chest pain Qualifiers: Chest pain type: unspecified Qualified Code(s): R07.9 - Chest pain, unspecified Disposition: Home, Self-Care Condition on Discharge: Good Instructions: DI for Atypical Chest Pain Additional Instructions: see pcp for follow up Referrals: Mike Reyes MD [Primary Care Provider] - - Critical Care Critical Care Time: No Attestation: On 07/02/21, the high probability of a clinically significant, sudden or life threatening deterioration of the following system(s) required my full and direct attention, intervention and personal management. The time I documented below is in addition to time spent performing reported procedures but includes the following listed in this critical care notation. Medical Decision Making - Medical Records Medical records reviewed: Yes: I reviewed the patient's medical records. - Babar Inquiry Pt receiving controlled substance: No Vital Signs: 07/02/21 04:14 Temperature 98.4 F Temperature Source Oral Pulse Rate [Left Radial] 93 H Respiratory Rate 18 Blood Pressure [Right Arm] 141/95 H Blood Pressure Mean [Right Arm] 110 Blood Pressure Source [Right Arm] Automatic Cuff Blood Pressure Position [Right Arm] Sitting 02 Sat by Pulse Oximetry 99 Oxygen Delivery Method Room Air - Lab Data Lab results reviewed: Yes: I reviewed the patient's lab results. Lab Results 07/02/21 04:21: WBC 11.9 H, RBC 4.52, Hgb 14.0, Hct 44.3, MCV 98.0, MCH 31.0, MCHC 31.6 L, RDW 13.6, Plt Count 548 H, MPV 8.2, Neut % (Auto) 62.7, Lymph % (Auto) 28.3, [place] % (Auto) 6.5, Eos % (Auto) 1.2, Baso % (Auto) 1.3, Neut # (Auto) 7.5, Lymph # (Auto) 3.4, [place] # (Auto) 0.8, Eos # (Auto) 0.1, Baso # (Auto) 0.2 07/02/21 04:21: Sodium 140, Potassium 3.9, Chloride 103, Carbon Dioxide 27, Anion Gap 13.9, BUN 10, Creatinine 0.50 L, Estimated Creat Clear 227, Estimated GFR 149, Est GFR ( Amer) 180, Glucose 109 H, Calcium 8.8, Total Bilirubin 0.5, Direct Bilirubin 0.3, Conjugated Bilirubin 0.0, Indirect Bilirubin 0.2, Unconjugated Bilirubin 0.2, AST 30, ALT 17, Alkaline Phosphatase 86, Troponin I < 0.01, C-Reactive Protein 1.6, Total Protein 7.7, Albumin 4.6, Lipase 128 07/02/21 04:21: Serum HCG, Qual Negative Result diagrams: 07/02/21 04:21 07/02/21 04:21 Orders (Tests/Meds): ED MEDICATIONS Generic Name Dose Route Start Last Admin Trade Name Freq PRN Reason Stop Dose Admin Lactated Ringer's 1,000 mls @ 999 mls/hr 07/02/21 04:30 07/02/21 04:23 Lactated Ringer's 1000 Ml Bag IV 07/02/21 05:30 999 mls/hr .Q1H1M MIESHA Administration Sodium Chloride 8 ml 07/02/21 04:17 Sodium Chloride 0.9% 10ml Vial IV 08/01/21 04:16 NEEDED PRN dilute pepcid Discontinued Medications Generic Name Dose Route Start Last Admin Trade Name Freq PRN Reason Stop Dose Admin Aspirin 324 mg 07/02/21 04:18 07/02/21 04:22 Aspirin 81mg Chewable Tablet PO 07/02/21 04:19 324 mg ONCE ONE Administration Famotidine 20 mg 07/02/21 04:17 07/02/21 04:22 Famotidine 20mg/2ml Vial IV 07/02/21 04:18 20 mg ONCE ONE Administration Metoclopramide HCl 10 mg 07/02/21 04:17 07/02/21 04:22 Metoclopramide Hcl 10mg/2ml Vial IVP 07/02/21 04:18 10 mg ONCE ONE Administration ORDERS Category Date Time Status XR chest 2V Stat Exams 07/02/21 04:16 Taken Complete Blood Count Auto Diff Stat Lab 07/02/21 04:21 Results Erythrocyte Sedimentation Rate Stat Lab 07/02/21 04:21 Results Rapid PCR Covid and Flu A/B Stat Lab 07/02/21 04:26 Received Troponin I Q3H Lab 07/02/21 07:30 Ordered Troponin I Q3H Lab 07/02/21 10:30 Ordered - Radiology Data #1 Image(s): Chest Image Reviewed: Yes I reviewed the patient's radiology image Preliminary Findings: Normal/NAD - ECG Data Tracing #1 Normal Sinus Rhythm: Yes Ischemic changes: non-specific ST-T wave changes Medical Decision Narrative: has stable exam and labs with
[2021-07-02 05:21] LABS: Erythrocyte Sedimentation Rate 17 mm/hr (0-20)
[2021-07-02 05:32] VITALS: BP 117/72; PULSE 67; RESP 18; TEMP 36.9; O2SAT 98
== END 2021-07-02 05:39 | disposition home or self-care (01) ==
PROVIDERS: Emergency Provider Emergency Medicine; PCP Emergency Medicine
DX: R07.9 Chest pain, unspecified (principal); J45.909 Unspecified asthma, uncomplicated; Z79.899 Other long term (current) drug therapy
CPT/HCPCS: 71046; 80048; 80076; 83690; 84484; 84703; 85025; 85651; 86140; 93005; 96360; 96365; 96375; 99284; C9803; U0003; U0005

== ENCOUNTER 2021-07-05 20:54 | Emergency (ER) | payer MEDICAID, SELFPAY ==
[2021-07-05 20:55] VITALS: BP 144/88; PULSE 92; RESP 19; TEMP 36.5; O2SAT 99; BMI 28.3
--- NOTE | 2021-07-05 21:36 | XR_ITS ---
PROCEDURE INFORMATION: Exam: XR Chest Exam date and time: 07/05/2021 9:34 PM Age: 26 years old Clinical indication: Cough TECHNIQUE: Imaging protocol: XR of the chest. Views: 2 views. COMPARISON: CR XR CHEST 2V 07/02/2021 4:41 AM FINDINGS: Lungs: Unremarkable. No consolidation. Pleural spaces: Unremarkable. No pleural effusion. No pneumothorax. Heart/Mediastinum: Unremarkable. No cardiomegaly. Bones/joints: Unremarkable. IMPRESSION: No acute findings.
[2021-07-05 21:44] LABS: Coronavirus 19, PCR Not Detected (NotDetected); Influenza A, PCR Not Detected (NotDetected); Influenza B, PCR Not Detected (NotDetected)
--- NOTE | 2021-07-05 21:50 | HMH.EDURI ---
ED Disposition Clinical Impression: Bronchitis Disposition: Home, Self-Care Condition on Discharge: Good Instructions: DI for Acute Bronchitis Additional Instructions: fluids and will use meds as directed Prescriptions: predniSONE [Prednisone 20mg Tab] 20 mg PO BID #10 tab Transmission Status: Pending to [facility] Azithromycin [Zithromax 250mg tab] 250 mg PO DIRECTED #6 tab Transmission Status: Pending to [facility] Referrals: Mike Reyes MD [Primary Care Provider] - - Critical Care Critical Care Time: No Attestation: On 07/05/21, the high probability of a clinically significant, sudden or life threatening deterioration of the following system(s) required my full and direct attention, intervention and personal management. The time I documented below is in addition to time spent performing reported procedures but includes the following listed in this critical care notation. Medical Decision Making - Medical Records Medical records reviewed: Yes: I reviewed the patient's medical records. - Babar Inquiry Pt receiving controlled substance: No Vital Signs: 07/05/21 20:55 Temperature 97.7 F Temperature Source Oral Pulse Rate [Right] 92 H Respiratory Rate 19 Blood Pressure [Right Arm] 144/88 H Blood Pressure Mean [Right Arm] 106 Blood Pressure Source [Right Arm] Automatic Cuff 02 Sat by Pulse Oximetry 99 Oxygen Delivery Method Room Air - Lab Data Lab results reviewed: Yes: I reviewed the patient's lab results. Lab Results 07/05/21 21:04: Group A Strep Rapid Negative 07/05/21 21:04: SARS-CoV-2 (PCR) Not detected, Influenza A Untype (PCR) Not detected, Influenza Type B (PCR) Not detected Orders (Tests/Meds): ORDERS Category Date Time Status Strep Screen Confirmation Stat Micro 07/05/21 21:04 Received - Radiology Data #1 Image(s): Chest Image Reviewed: Yes I have reviewed radiologist's interpretation Preliminary Findings: Normal/NAD Medical Decision Narrative: has stephan flu and cxr ok but has bronchitis URI/Sore Throat HPI - General Chief Complaint: Upper Respiratory Infection Stated Complaint: cough & Congestion Time Seen by Provider: 07/05/21 21:50 Mode of Arrival: Family Vehicle Source of Information: Patient, Medical Record Limitations: No Limitations Description of Symptoms (Recalled from ER Triage Doc. by RN): Pt c/o chest congestion, cough, sore throat, and general malise for 2days. Denies fever, n/v/d, or pain. Pt states she has had covid 2x previsously, most recent was 01/2021. Denies any SOA. Denies any significant PMH. No medications [facility]ACER. - History of Present Illness HPI Narrative: cough and sore throat over the last few days MD Complaint: cough, nasal congestion Onset (ago): day(s) Duration: intermittent Severity: moderate Able to tolerate fluids by mouth: Yes Associated symptoms: denies other symptoms Treatments prior to arrival: none - Related Data Previous Rx's Medication Instructions Recorded Azithromycin [Zithromax 250mg 250 mg PO DIRECTED #6 tab 07/05/21 tab] predniSONE [Prednisone 20mg 20 mg PO BID #10 tab 07/05/21 Tab] Allergies Allergy/AdvReac Type Severity Reaction Status Date / Time No Known Drug Allergies Allergy Unknown Verified 11/30/20 15:18 [NKDA] [facility] History - Hepatitis A Screen Drug use history?: No High risk sexual behaviors?: No History of sexually transmitted infection?: No Currently employed?: No Childcare worker?: No Do you have indoor plumbing?: Yes Do you have electricity?: Yes Attestation statement:: This patient has been screened for Hepatitis A risk factors. I have reviewed the patient's past medical history: Yes 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: Reports:: Asthma Denies:: Diabetes Mellitus Type 1, Diabetes Mellitus Type 2 Other Surgeries: Yes: Amputation: No Fractures: No - Social History Smoking Status: Never smoker Tobacco Type: smoke
[2021-07-05 21:51] LABS: Strep Scrn Group A (Rapid) Negative (Negative)
[2021-07-05 22:36] VITALS: BP 134/78; PULSE 90; RESP 18; TEMP 36.5; O2SAT 99
== END 2021-07-05 23:08 | disposition home or self-care (01) ==
PROVIDERS: Emergency Provider Emergency Medicine; PCP Emergency Medicine
DX: J20.9 Acute bronchitis, unspecified (principal); J45.909 Unspecified asthma, uncomplicated
CPT/HCPCS: 71046; 87430; 99283; C9803; U0003; U0005

== ENCOUNTER 2021-07-30 20:21 | Emergency (ER) | payer MEDICAID, SELFPAY ==
[2021-07-30 20:51] VITALS: BP 141/94; PULSE 87; RESP 18; TEMP 37.1; O2SAT 98; BMI 31.6
[2021-07-30 20:59] LABS: Apearance,Urine Clear (Clear); Bilirubin,Urine Negative (Negative); Blood, Urine Trace (Negative); Color,Urine Yellow (Yellow); Glucose,Urine (UA) Negative (Negative); Ketones,Urine Negative (Negative); Protein,Urine Negative (Negative); Specific Gravity, Urine 1.015 (1.005-1.030); UTC Leukocyte Esterase,Urine Negative (Negative); UTC Nitrate,Urine Negative (Negative); UTC Pregnancy Test, Urine Negative (Negative); Urobilinogen,Urine 0.2 EU/dl (0.2)
--- NOTE | 2021-07-30 21:00 | HMH.EDUTC ---
[facility] [place] Disposition Condition on Discharge: Fair <Khai Torres - Last Filed: 07/30/21 21:16> <Mike Reyes - Last Filed: 07/30/21 23:44> Clinical Impression: Abdominal pain Qualifiers: Abdominal location: left lower quadrant Qualified Code(s): R10.32 - Left lower quadrant pain Disposition: Home, Self-Care Instructions: DI for Acute Abdominal Pain Additional Instructions: see business center representative and pcp for follow up Referrals: Mike Reyes MD [Primary Care Provider] - Medical Decision Making - Medical Records Medical records reviewed: No: I reviewed the patient's medical records. - Babar Inquiry Pt receiving controlled substance: No - Lab Data Lab results reviewed: Yes: I reviewed the patient's lab results. <Khai Torres - Last Filed: 07/30/21 21:16> - Lab Data Result diagrams: 07/30/21 21:33 07/30/21 21:33 - CT Data CT Scan: Abdomen, Pelvis Time Received: 23:[address] Reviewed: Yes: I have viewed the radiologist's interpretation Preliminary Findings: Normal/NAD <Mike Reyes - Last Filed: 07/30/21 23:44> Vital Signs: 07/30/21 20:51 07/30/21 21:34 Temperature 98.7 F 98.7 F Temperature Source Oral Oral Pulse Rate [Left] 87 87 Respiratory Rate 18 16 Blood Pressure [Right Arm] 141/94 H 142/75 H Blood Pressure Mean [Right Arm] 109 97 02 Sat by Pulse Oximetry 98 99 - Lab Data Lab Results 07/30/21 20:56: Urine Color Yellow, Urine Appearance Clear, Urine pH 7.0, Ur Specific [place] <= 1.005, Urine Protein Negative, Urine Glucose (UA) Negative, Urine Ketones Negative, Urine Blood Trace-i, Urine Nitrate Negative, Urine Bilirubin Negative, Urine Urobilinogen 0.2, Ur Leukocyte Esterase Negative, Urine RBC 3-5, Amorphous Sediment Trace 07/30/21 20:58: Urine Color Yellow, Urine Appearance Clear, Urine pH 7.0, Ur Specific [place] 1.015, Urine Protein Negative, Urine Glucose (UA) Negative, Urine Ketones Negative, Urine Blood Trace, Urine Nitrate Negative, Urine Bilirubin Negative, Urine Urobilinogen 0.2, Ur Leukocyte Esterase Negative, Tst Clinic Negative 07/30/21 21:33: WBC 9.9, RBC 4.45, Hgb 14.0, Hct 42.8, MCV 96.2, MCH 31.5 H, MCHC 32.7, RDW 13.5, Plt Count 474 H, MPV 7.9, Neut % (Auto) 74.2, Lymph % (Auto) 17.3, [place] % (Auto) 6.3, Eos % (Auto) 0.6, Baso % (Auto) 1.6, Neut # (Auto) 7.3, Lymph # (Auto) 1.7, [place] # (Auto) 0.6, Eos # (Auto) 0.1, Baso # (Auto) 0.2, ESR 22 H 07/30/21 21:33: Sodium 140, Potassium 3.6, Chloride 102, Carbon Dioxide 30, Anion Gap 11.6, BUN 11, Creatinine 0.60, Estimated Creat Clear 212, Estimated GFR 121, Est GFR ( Amer) 146, Glucose 79, Calcium 9.2, Total Bilirubin 0.5, AST 27, ALT 17, Alkaline Phosphatase 72, C-Reactive Protein 2.4, Total Protein 7.8, Albumin 4.6, Globulin 3.2, Albumin/Globulin Ratio 1.4, Amylase 56, Lipase 85 Orders (Tests/Meds): ED MEDICATIONS Generic Name Dose Route Start Last Admin Trade Name Freq PRN Reason Stop Dose Admin Lactated Ringer's 1,000 mls @ 999 mls/hr 07/30/21 21:45 07/30/21 21:38 Lactated Ringer's 1000 Ml Bag IV 07/30/21 22:45 999 mls/hr .Q1H1M MIESHA Administration Discontinued Medications Generic Name Dose Route Start Last Admin Trade Name Freq PRN Reason Stop Dose Admin Iopamidol 75 ml 07/30/21 22:58 07/30/21 23:00 Iopamidol-370 (76%);100ml Bottle IV 07/30/21 22:59 75 ml ONCE ONE Administration Ketorolac Tromethamine 30 mg 07/30/21 21:32 07/30/21 21:37 Ketorolac 30mg/Ml Vial IV 07/30/21 21:33 30 mg ONCE ONE Administration Sodium Chloride 10 ml 07/30/21 22:58 07/30/21 23:00 Sodium Chloride 0.9% 10ml Syr (Rad Only) IV 07/30/21 22:59 10 ml ONCE ONE Administration ORDERS Category Date Time Status Urine Culture Stat Micro 07/30/21 20:56 Received Medical Decision Narrative: She was transferred to the ER due to her abdominal pain with no clear etiology. (Khai Torres) stable exam and ct - and nonspecific changes and will need business center representative follow up (Mike Reyes)
--- NOTE | 2021-07-30 21:28 | CT_ITS ---
PROCEDURE INFORMATION: Exam: CT Abdomen And Pelvis With Contrast Exam date and time: 07/30/2021 10:47 PM Age: 26 years old Clinical indication: Abdominal pain; Localized; Left lower quadrant (llq); Additional info: Abd pain TECHNIQUE: Imaging protocol: Computed tomography of the abdomen and pelvis with contrast. Radiation optimization: All CT scans at this facility use at least one of these dose optimization techniques: automated exposure control; mA and/or kV adjustment per patient size (includes targeted exams where dose is matched to clinical indication); or iterative reconstruction. Contrast material: ISOVUE; Contrast volume: 75 ml; Contrast route: IV; COMPARISON: CT LUMBAR SPINE WO CON 06/09/2020 8:08 PM FINDINGS: Liver: Normal. No mass. Gallbladder and bile ducts: Normal. No calcified stones. No ductal dilation. Pancreas: Normal. No ductal dilation. Spleen: Normal. No splenomegaly. Adrenal glands: Normal. No mass. Kidneys and ureters: There is a 2 cm simple cyst in the left kidney. There is a 2 cm simple cyst in the right kidney. No further follow-up required. No hydronephrosis or calcified stones. Stomach and bowel: Unremarkable. No obstruction. No mucosal thickening. Appendix: Appendix normal. Intraperitoneal space: Unremarkable. No free air. No significant fluid collection. Arteries: Unremarkable. No abdominal aortic aneurysm. Lymph nodes: Unremarkable. No enlarged lymph nodes. Urinary bladder: Unremarkable as visualized. Reproductive: Unremarkable as visualized. Bones/joints: Unremarkable. No acute fracture. Soft tissues: Unremarkable. IMPRESSION: No acute intra-abdominal or intrapelvic abnormality COMMENTS: Consistent with the [employer]'s Incidental Findings Committee white paper (J Am Mariposa Radiol 2018): Any incidental renal lesion less than 1 cm or classified as too small to characterize, or any incidental cystic renal lesion characterized as simple-appearing, is likely benign. No follow-up imaging is recommended for these lesions per consensus recommendations based on imaging criteria.
[2021-07-30 21:34] VITALS: BP 142/75; PULSE 87; RESP 16; TEMP 37.1; O2SAT 99; BMI 31.5
[2021-07-30 21:45] LABS: Basophils # 0.2 K/mm3 (0-0.2); Basophils % 1.6 % (0.1-2.0); Eosinophils # 0.1 K/mm3 (0.0-0.4); Eosinophils % 0.6 % (0.1-12.0); Hematocrit 42.8 % (37.0-47.0); Lymphocytes # 1.7 K/mm3 (0.7-4.5); Lymphocytes % 17.3 % (10-50); Mean Corpuscular HGB Conc 32.7 g/dL (31.8-35.4); Mean Corpuscular Hemoglobin 31.5 pg (27.0-31.2); Mean Corpuscular Volume 96.2 fl (81-99); Mean Platelet Volume 7.9 fl (7.4-10.4); Monocytes # 0.6 K/mm3 (0.1-1.0); Monocytes % 6.3 % (1.7-9.3); Neutrophils # 7.3 K/mm3 (1.8-7.8); Neutrophils % 74.2 % (37.0-80.0); Platelet Count 474 K/mm3 (142-424); Red Blood Count 4.45 M/mm3 (4.20-5.40); Red Cell Distribution Width 13.5 % (11.5-17.5); White Blood Count 9.9 K/mm3 (4.8-10.8)
[2021-07-30 21:49] LABS: Alanine Aminotransferase 17 U/L (12-78); Albumin Level 4.6 g/dl (3.5-5.0); Albumin/Globulin Ratio 1.4 (1.1-1.8); Alkaline Phosphatase 72 U/L (38-126); Amylase 56 U/L (30-110); Anion Gap 11.6 mEq/L (5-15); Aspartate Amino Transferase 27 U/L (14-36); Bilirubin,Total 0.5 mg/dl (0.2-1.3); Blood Urea Nitrogen 11 mg/dl (7-17); Calcium 9.2 mg/dl (8.4-10.2); Carbon Dioxide 30 mmol/L (22.0-30.0); Chloride 102 mmol/L (98-107); Creatinine Clearance Estimated 212 mL/min (50-200); Estimated Glomerular Filt Rate 121 ml/min (>60); GFR (African American) 146 ML/MIN (>60); Globulin 3.2 g/dL (1.3-3.2); Glucose 79 mg/dl (74-100); Lipase 85 U/L (23-300); Potassium 3.6 mmoL/L (3.5-5.1); Sodium 140 mmol/L (136-145); Total Protein,Serum 7.8 g/dl (6.3-8.2)
[2021-07-30 21:54] LABS: C-Reactive Protein 2.4 mg/L (0-4)
[2021-07-30 22:11] LABS: Erythrocyte Sedimentation Rate 22 mm/hr (0-20)
--- NOTE | 2021-07-30 22:45 | PC.NURSE ---
Pt gone to RAD
--- NOTE | 2021-07-30 22:56 | PC.NURSE ---
Pt back from RAD
[2021-07-30 23:02] LABS: Appearance,Urine CLEAR (Clear); Bilirubin,Urine Negative (Negative); Blood, Urine TRACE-I (Negative); Color,Urine YELLOW (Yellow); Glucose,Urine (UA) Negative (Negative); Ketones,Urine Negative (Negative); Leukocyte Esterase,Urine Negative (Negative); Microscopic, Urine URINE MICROSCOPIC (MICROSCOPIC); Nitrate,Urine Negative (Negative); Protein,Urine Negative (Negative); Specific Gravity, Urine <= 1.005 (1.005-1.030); Urobilinogen,Urine 0.2 EU/dl (0.2)
[2021-07-30 23:13] LABS: Amorphous Sediment,Urine Trace /lpf
[2021-07-31 00:05] VITALS: BP 103/77; PULSE 73; RESP 16; TEMP 37.1; O2SAT 100
== END 2021-07-31 00:11 | disposition home or self-care (01) ==
LOC: UTC 21:25 → ER 21:26
PROVIDERS: Nurse Practitioner Family; Emergency Provider Emergency Medicine; PCP Emergency Medicine
DX: R10.32 Left lower quadrant pain (principal); J45.909 Unspecified asthma, uncomplicated; F17.290 Nicotine dependence, other tobacco product, uncomplicated; Z79.51 Long term (current) use of inhaled steroids
CPT/HCPCS: 74177; 80053; 81001; 81003; 81025; 82150; 83690; 85025; 85651; 86140; 87086; 96361; 96374; 99284; Q9967

== ENCOUNTER 2021-11-03 18:40 | Emergency (ER) | payer MEDICAID, SELFPAY ==
[2021-11-03 19:11] VITALS: BP 109/76; PULSE 86; RESP 17; TEMP 36.8; O2SAT 99; BMI 33.2
[2021-11-03 19:20] LABS: UTC Strep Screen (Rapid) Negative (Negative)
--- NOTE | 2021-11-03 19:34 | HMH.EDUTC ---
[facility] [place] Clinical Impression: Upper respiratory infection, viral Disposition: Home, Self-Care Condition on Discharge: Good Instructions: DI for COVID-19 (Suspected or Confirmed ), Preventing the Spread of Coronavirus Discharge Instructions, Sore Throat, DI for Viral Syndrome, DI for Ear Pain-Adult Additional Instructions: *Monitor Temp, Over the counter Motrin or Tylenol as directed/as needed Tylenol every 4 hours and Motrin every 6 hours (as long as your family doctor has told you that you can take it) for fever or pain. and straight to ER if unable to lower temp less than 101.0 after medication given *Warm salt water gargles may help to soothe the throat *Throat Lozenges *Warm fluids like tea with honey may help to soothe the throat *Sleep elevated *Humidifier/Vaporizer Over the counter Allergy medication may help with allergy symptoms Your throat swab was sent for culture. Those results are typically sent to your primary care. Be sure to follow up in 2-3 days with your family doctor/primary care physician if no improvement so they can review those result and treat if necessary. If you don?t have a primary care doctor, I recommend you get one but in the mean time, you will have to return to a walk in clinic Follow up IMMEDIATELY for new or worsening symptoms or no Noticeable improvement over the next 48-72 hours. 911 for difficulty breathing or swallowing You were tested for today for COVID19 your test result should be back in the next 24-48 hours, you may check your results on the [facility] My Health portal Make sure to take your Vitamins Vit. C Vit D and Zinc if you can take them Referrals: Mike Reyes MD [Primary Care Provider] - As needed Time of Disposition: 19:39 Medical Decision Making - Babar Inquiry Pt receiving controlled substance: No Babar was queried for this patient: No Vital Signs: 11/03/21 19:11 Temperature 98.3 F Temperature Source Oral Pulse Rate [Radial] 86 Respiratory Rate 17 Blood Pressure [Right Arm] 109/76 L Blood Pressure Mean [Right Arm] 87 Blood Pressure Source [Right Arm] Automatic Cuff Blood Pressure Position [Right Arm] Sitting 02 Sat by Pulse Oximetry 99 Oxygen Delivery Method Room Air - Lab Data Lab results reviewed: Yes: I reviewed the patient's lab results. Lab Results 11/03/21 19:05: Strep Scn Rapid Clinic Negative Orders (Tests/Meds): ORDERS Category Date Time Status Covid-19 Nasal PCR ([facility]) Routine Lab 11/03/21 19:08 Received Strep Screen Confirmation Stat Micro 11/03/21 19:05 Received [facility] UTC HPI - General Stated complaint: HD, Ear ache Time Seen by Provider: 11/03/21 19:35 Mode of Arrival: Ambulatory Source of Information: Patient Description of Symptoms (Recalled from Triage Doc. by RN): HEADACHE, NECK PAIN AND BILATERAL EAR PAIN HEENT Symptoms (Recalled from RN notes): Yes Resp Symptoms (Recalled from RN notes): No Skin Symptoms (Recalled from RN notes): No MS Symptoms (Recalled from RN notes): No Functional Status (Recalled from RN notes): N/A - History of Present Illness Provider Complaint: Patient states that she has been having fever, chills, body aches, headache pain in her ears and side of neck below ears and over all not feeling well States that she ran a fever on and off all night and daughter is having similar symptoms - Related Data Previous Rx's Medication Instructions Recorded albuterol sulfate 90 mcg/actuation 2 puff INHALATION Q4-6H PRN #8.5 g 07/12/21 aerosol inhaler Allergies Allergy/AdvReac Type Severity Reaction Status Date / Time No Known Drug Allergies Allergy Unknown Verified 08/02/21 11:04 [NKDA] - Worker's Comp Is this a Worker's Comp case?: No [facility] History - Hepatitis A Screen Attestation statement:: This patient has been screened for Hepatitis A risk factors. I have reviewed the patient's past medical history: Yes 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: Reports:: Asthma Denies:: Diabete
[2021-11-03 20:06] VITALS: BP 109/76; PULSE 86; RESP 18; TEMP 36.8; O2SAT 99
== END 2021-11-03 20:07 | disposition home or self-care (01) ==
PROVIDERS: Emergency Provider Nurse Practitioner; PCP Emergency Medicine
DX: J06.9 Acute upper respiratory infection, unspecified (principal)
CPT/HCPCS: 87880; 99212; C9803; G0463; U0003; U0005

== ENCOUNTER 2021-12-19 18:55 | Emergency (ER) | payer MEDICAID, SELFPAY ==
[2021-12-19 18:56] VITALS: BP 126/77; PULSE 87; RESP 16; TEMP 36.8; O2SAT 100; BMI 32.5
--- NOTE | 2021-12-19 19:13 | XR_ITS ---
PROCEDURE INFORMATION: Exam: XR Lumbosacral Spine Exam date and time: 12/19/2021 7:41 PM Age: 26 years old Clinical indication: Low back pain; Patient HX: PT injured x 1 day ago twisting back. HX hnp @l4-l5 TECHNIQUE: Imaging protocol: Radiologic exam of the lumbosacral spine. Views: 2 or 3 views. COMPARISON: CT LUMBAR SPINE WO CON 06/09/2020 8:08 PM FINDINGS: Bones/joints: Scoliosis. No acute fracture. Soft tissues: Unremarkable. IMPRESSION: No acute findings.
--- NOTE | 2021-12-19 19:14 | XR_ITS ---
PROCEDURE INFORMATION: Exam: XR Thoracic Spine Exam date and time: 12/19/2021 7:42 PM Age: 26 years old Clinical indication: Pain in thoracic spine; Patient HX: PT injured back x 1 day ago twisting. ; Additional info: Back pain TECHNIQUE: Imaging protocol: Radiologic exam of the thoracic spine. Views: 3 views. COMPARISON: CR XR LUMBAR SPINE 2-3V 12/19/2021 7:41 PM FINDINGS: Bones/joints: Scoliosis. No acute fracture. Soft tissues: Unremarkable. IMPRESSION: No acute findings.
--- NOTE | 2021-12-19 19:21 | PC.NURSE ---
URINE COLLECTED FROM PATIENT. PATIENT AWARE THAT WE CAN NOT GIVE MEDICATIONS UNTIL URINE PREG. RESULTS. NO ACUTE DISTRESS NOTED.
[2021-12-19 19:44] LABS: Urine Pregnancy, HCG Qual. Negative (Negative)
--- NOTE | 2021-12-19 22:05 | HMH.EDGENADL ---
Discharge Plan Disposition Patient Disposition: Home, Self-Care Prescriptions Prescriptions: New prednisone [prednisone] 20 mg tablet 20 mg PO BID Qty: 10 0RF No Action albuterol sulfate 90 mcg/actuation HFA aerosol inhaler 2 puff INHALATION Q4-6H PRN (Reason: shortness of breath or wheezing) Qty: 8.5 4RF Referrals Follow up/Referrals: Mike Reyes MD [Primary Care Provider] - See instructions Clinical Impressions Clinical Impression: Back pain with sciatica Instructions Patient Instructions: DI for Lumbar Radiculopathy Discharge ED Provider: Mike Reyes General Adult HPI General Chief complaint: PAIN Stated complaint: back pain Time Seen by Provider: 12/19/21 22:05 Mode of Arrival: Ambulatory Source of Information: Patient and Medical Record Limitations: No Limitations Description of Symptoms (Recalled from ER Triage Doc. by RN): PT STATES SHE TWISTED TO WIPE HER BUTT AND HER BACK STARTED HURTING AND HAS NOT STOPPED SINCE YESTERDAY. PT REPORTS THAT SHE TOOK TWO MOTRIN YESTERDAY AND NOTHING TODAY AND SHE HAS NOT CONTACTED HER FAMILY DR. 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 PT STATES THE LAST TIME THIS HAPPENED SHE HAD A STEROID SHOT AND A TORDOL SHOT AND THAT HELPED. History of Present Illness HPI narrative: acute twisting injury last pm with rad to lower ext - no cauda equina sx Onset (ago): day(s) Location: back Radiation: extremity Severity: moderate Associated symptoms: denies other symptoms Related Data Previous Rx's Medication Instructions Recorded albuterol sulfate 90 mcg/actuation 2 puff inhalation Q4-6H PRN 07/12/21 aerosol inhaler shortness of breath or wheezing #8.5 grams prednisone 20 mg tablet 20 mg PO BID #10 tabs 12/19/21 Allergies Allergy/AdvReac Type Severity Reaction Status Date / Time No Known Drug Allergies Allergy Unknown Verified 08/02/21 11:04 [NKDA] [facility] 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 (Updated 12/19/21 @ 22:15 by Mike Reyes MD) Back pain Cervicalgia Social History (Updated 12/19/21 @ 21:52 by Cady Lester RN) Smoking Status: Never smoker alcohol intake: never substance use type: denies use current occupational status: other Travel in the last 8 weeks: None household members: children housing: apartment ROS Obtained: Yes All systems reviewed & no additional complaints except as documented Constitutional Constitutional: Denies headache(s) ENT Ears, Nose, Mouth, and Throat: Denies headache(s) Cardiovascular Cardiovascular: Denies dyspnea Respiratory Respiratory: Denies cough and Denies dyspnea Integumentary/Breasts Skin/Breast: Denies rash Neurologic Neurologic: Reports as per HPI, Denies headache(s) and Reports radicular pain Physical Exam General General appearance: alert and obese Head Head exam: normocephalic Eye Eye exam: Present PERRL and EOMI ENT ENT exam: Present mucous membranes moist Neck Neck exam: Present trachea midline Respiratory Respiratory exam: Present normal lung sounds bilaterally Cardiovascular Cardiovascular exam: Present regular rate Abdominal Exam Abdominal exam: Present soft Extremities Exam Extremities exam: Absent edema Back Exam Back exam: Present tenderness; Absent full ROM Neurological Exam Neurological exam: Present alert, oriented X3 and CN II-XII intact; Absent motor sensory deficit Psychiatric Psychiatric exam: Present normal affect Skin Skin exam: Absent rash Medical Decision Making Medical Records Medical records reviewed: Yes I reviewed the patient's medical records. Babar Inquiry Pt receiving controlled substance: No Vital Signs: 12/19/21 18:56 Temperature 98.2 F Temperature Source Oral Pulse Rate [Left Radial] 87 Respiratory Rate 16 Blood Pressure [Right Arm] 126/77 Blood Pressure Mean [Right Arm] 93 Blood Pressure Source [Right Arm] Automatic Cuff Blood Pressure Position [Right Arm] Sitting 02 Sat by Pulse Oximetry 100 Oxygen Delivery Met
[2021-12-19 22:22] VITALS: BP 134/71; PULSE 78; RESP 16; TEMP 36.7; O2SAT 97
== END 2021-12-19 22:24 | disposition home or self-care (01) ==
PROVIDERS: Emergency Provider Emergency Medicine; PCP Emergency Medicine
DX: M54.40 Lumbago with sciatica, unspecified side (principal)
CPT/HCPCS: 72072; 72100; 81025; 96372; 99283

== ENCOUNTER 2022-02-15 15:39 | Emergency (ER) | payer MEDICAID, SELFPAY ==
--- NOTE | 2022-02-15 16:48 | EXP.UTC ---
Discharge Plan Disposition Patient Disposition: Home, Self-Care Condition: Good Prescriptions Prescriptions: New ibuprofen [IBU] 800 mg tablet 800 mg PO Q8HP PRN (Reason: Moderate Pain) Qty: 30 0RF No Action albuterol sulfate 90 mcg/actuation HFA aerosol inhaler 2 puff INHALATION Q4-6H PRN (Reason: shortness of breath or wheezing) Qty: 8.5 4RF prednisone [prednisone] 20 mg tablet 20 mg PO BID Qty: 10 0RF Referrals Follow up/Referrals: Mike Reyes MD [Primary Care Provider] - See instructions Chica aJimes DPM [Staff Physician] - See instructions Activity Restrictions/Add. Instructions Additional Instructions/Restrictions: Rest the extremity, apply ice for 15 minutes as tolerated three or four times per day, Wear the quinn wrap for compression, Elevate the extremity as tolerated while you are resting. Take ibuprofen for pain. I sent in a prescription to your pharmacy. Follow up with Dr. Jaimes (podiatry). I put in a referral but you need to call her office and schedule an appointment. Follow up with your regular doctor. GO TO THE ER FOR ANY WORSENING SYMPTOMS Clinical Impressions Clinical Impression: Ankle pain, right Instructions Patient Instructions: DI for Ankle Pain Discharge ED Provider: Khai Torres [facility] General Stated complaint: Right Ankle pain; injury long ago Time Seen by Provider: 02/15/22 16:48 History of Present Illness Provider Complaint: she states that she has been having pain and swelling of her right ankle on and off for a long time . She states that she twisted her ankle when she was 12 and it has hurt like this on and off since then. She denies any new or recent injury. Related Data Previous Rx's Medication Instructions Recorded albuterol sulfate 90 mcg/actuation 2 puff inhalation Q4-6H PRN 07/12/21 aerosol inhaler shortness of breath or wheezing #8.5 grams prednisone 20 mg tablet 20 mg PO BID #10 tabs 12/19/21 ibuprofen 800 mg tablet (IBU) 800 mg PO Q8HP PRN Moderate Pain 02/15/22 #30 tabs Allergies Allergy/AdvReac Type Severity Reaction Status Date / Time No Known Drug Allergies Allergy Unknown Verified 08/02/21 11:04 [NKDA] [facility] 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 Back pain Cervicalgia Social History Smoking Status: Never smoker alcohol intake: never substance use type: denies use current occupational status: other Travel in the last 8 weeks: None household members: children housing: apartment ROS Obtained: Yes All systems reviewed & no additional complaints except as documented Constitutional Constitutional: Denies chills and Denies fever(s) Integumentary/Breasts Skin/Breast: Denies redness, Denies rash and Denies wounds Neurologic Neurologic: Denies paresthesias Physical Exam General General appearance: alert and in no apparent distress Head Head exam: atraumatic, normocephalic and normal inspection Eye Eye exam: Present normal appearance, PERRL and EOMI ENT ENT exam: Present normal exam, normal oropharynx, mucous membranes moist, TM's normal bilaterally and normal external ear exam Neck Neck exam: Present normal inspection, full ROM and trachea midline; Absent meningismus or lymphadenopathy Chest Chest inspection: Present normal inspection and symmetric chest wall rise; Absent tenderness Respiratory Respiratory exam: Present normal lung sounds bilaterally; Absent respiratory distress Cardiovascular Cardiovascular exam: Present regular rate and normal rhythm; Absent JVD Abdominal Exam Abdominal exam: Present soft and normal bowel sounds; Absent distention, tenderness or guarding Extremities Exam Extremities exam: Present normal capillary refill; Absent calf tenderness Expanded Lower Extremity Exam Right: Knee exam: Present normal inspection and full ROM; Absent tenderness Lower leg exam: Pr
--- NOTE | 2022-02-15 16:53 | XR_ITS ---
PROCEDURE INFORMATION: Exam: XR Right Ankle Exam date and time: 02/15/2022 5:07 PM Age: 26 years old Clinical indication: Pain; Ankle; Right; Additional info: Pain x's 14 yrs ago TECHNIQUE: Imaging protocol: Radiologic exam of the Right ankle. Views: 3 or more views. COMPARISON: No relevant prior studies available. FINDINGS: Bones/joints: No visible fracture or dislocation. The mortise joint space is symmetric. Soft tissues: Normal. IMPRESSION: No visible fracture or dislocation.
[2022-02-15 17:07] VITALS: BP 135/77; PULSE 85; RESP 18; TEMP 36.8; O2SAT 99; BMI 34.9
[2022-02-15 17:52] VITALS: BP 135/77; PULSE 85; RESP 18; TEMP 36.8
== END 2022-02-15 17:57 | disposition home or self-care (01) ==
PROVIDERS: Emergency Provider Nurse Practitioner Family; PCP Emergency Medicine
DX: M25.571 Pain in right ankle and joints of right foot (principal)
CPT/HCPCS: 73610; 99212; G0463

== ENCOUNTER 2022-02-18 14:04 | Emergency (ER) | payer MEDICAID, SELFPAY ==
[2022-02-18 14:45] VITALS: BP 121/78; PULSE 86; RESP 20; TEMP 37.2; O2SAT 100; BMI 36.1
--- NOTE | 2022-02-18 16:08 | EXP.UTC ---
Discharge Plan Disposition Patient Disposition: Home, Self-Care Condition: Good Prescriptions Prescriptions: New azithromycin [Zithromax Z-Jonas] 250 mg tablet See Rx Instructions .ROUTE .COMPLEX 5 Days Qty: 6 0RF Rx Instructions: For 250 mg dose pack: take 500 mg today (day 1), then 250 mg for 4 days (days 2-5) methylprednisolone [Medrol (Jonas)] 4 mg tablets,dose pack See Rx Instructions .Route .COMPLEX 6 Days Qty: 21 0RF Rx Instructions: taper pack; No Action ibuprofen [IBU] 800 mg tablet 800 mg PO Q8HP PRN (Reason: Moderate Pain) Qty: 30 0RF Referrals Follow up/Referrals: Mike Reyes MD [Primary Care Provider] - See instructions Activity Restrictions/Add. Instructions Additional Instructions/Restrictions: *Monitor Temp, Over the counter Motrin or Tylenol as directed/as needed Tylenol every 4 hours and Motrin every 6 hours (as long as your family doctor has told you that you can take it) for fever or pain. and straight to ER if unable to lower temp less than 101.0 after medication given *Warm salt water gargles may help to soothe the throat *Throat Lozenges? *Warm fluids like tea with honey may help to soothe the throat? *Sleep elevated *Humidifier/Vaporizer Your throat swab was sent for culture. Those results are typically sent to your primary care. Be sure to follow up in 2-3 days with your family doctor/primary care physician if no improvement so they can review those result and treat if necessary. If you don?t have a primary care doctor, I recommend you get one but in the mean time, you will have to return to a walk in clinic Follow up IMMEDIATELY for new or worsening symptoms or no Noticeable improvement over the next 48-72 hours. 911 for difficulty breathing or swallowing Discharge ED Provider: Anne Marie [facility] [place] General Stated complaint: Chest congestion Mode of Arrival: Ambulatory Source of Information: Patient Limitations: No Limitations Time Seen by Provider: 02/18/22 16:09 Description of Symptoms (Recalled from Triage Doc. by RN): PATIENT C/O CHEST CONGESTION AND SORE THROAT X 3 DAYS HEENT Symptoms (Recalled from RN notes): Yes Resp Symptoms (Recalled from RN notes): No Skin Symptoms (Recalled from RN notes): No MS Symptoms (Recalled from RN notes): No Functional Status (Recalled from RN notes): WNL History of Present Illness Provider Complaint: Patient states that she has been having sore throat, chest congestion and cough for about 3 days that has continued to get worse States that today her cough seems more deep and mckenzie in her throat so she came in states that she gets bronchitis at times Related Data Previous Rx's Medication Instructions Recorded ibuprofen 800 mg tablet (IBU) 800 mg PO Q8HP PRN Moderate Pain 02/15/22 #30 tabs azithromycin 250 mg tablet See Rx Instructions PO .COMPLEX 5 02/18/22 (Zithromax Z-Jonas) days #6 tabs methylprednisolone 4 mg tablets in See Rx Instructions .Route 02/18/22 a dose pack (Medrol (Jonas)) .COMPLEX 6 days #21 tabs Allergies Allergy/AdvReac Type Severity Reaction Status Date / Time No Known Drug Allergies Allergy Unknown Verified 08/02/21 11:04 [NKDA] Worker's Comp Is this a Worker's Comp case?: No PFSH PFS 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 (Updated 02/18/22 @ 16:04 by Lorrie De La Torre RN) Asthma Back pain Cervicalgia Surgical History (Updated 02/18/22 @ 16:04 by Lorrie De La Torre RN) History of section Social History (Updated 02/18/22 @ 16:05 by Lorrie De La Torre RN) Smoking Status: Never smoker alcohol intake: never substance use type: denies use current occupational status: other Travel in the last 8 weeks: None household members: children housing: apartment ROS Obtained: Yes All systems reviewed & no additional complaints except as documented and Yes Systems reviewed as appropriate & no additional complaints except as documented Constitutional
[2022-02-18 16:15] LABS: UTC Strep Screen (Rapid) Negative (Negative)
[2022-02-18 16:31] VITALS: BP 121/78; PULSE 86; RESP 20; TEMP 37.2; O2SAT 100
== END 2022-02-18 16:33 | disposition home or self-care (01) ==
PROVIDERS: Emergency Provider Nurse Practitioner; PCP Emergency Medicine
DX: J06.9 Acute upper respiratory infection, unspecified (principal)
CPT/HCPCS: 87880; 99212; G0463

== ENCOUNTER 2022-04-20 10:22 | Emergency (ER) | payer MEDICAID, SELFPAY ==
[2022-04-20 10:25] VITALS: BP 127/79; PULSE 81; RESP 19; TEMP 36.6; O2SAT 98; BMI 33.3
--- NOTE | 2022-04-20 10:40 | EXP.UTC ---
Discharge Plan Disposition Patient Disposition: Still a Patient Prescriptions Prescriptions: No Action ibuprofen [IBU] 800 mg tablet 800 mg PO Q8HP PRN (Reason: Moderate Pain) Qty: 30 0RF azithromycin [Zithromax Z-Jonas] 250 mg tablet See Rx Instructions .ROUTE .COMPLEX 5 Days Qty: 6 0RF Rx Instructions: For 250 mg dose pack: take 500 mg today (day 1), then 250 mg for 4 days (days 2-5) methylprednisolone [Medrol (Jonas)] 4 mg tablets,dose pack See Rx Instructions .Route .COMPLEX 6 Days Qty: 21 0RF Rx Instructions: taper pack; Referrals Follow up/Referrals: Mike Reyes MD [Primary Care Provider] - See instructions Discharge ED Provider: Dario Olivas [facility] [place] General Stated complaint: Dizzy, LT ear pain, head pressure Time Seen by Provider: 04/20/22 10:40 History of Present Illness Provider Complaint: Patient states that she had been having problems with her ear and seen PCP last week and has been on antibiotics for it States that yesterday at work her ear was still hurting some but she started feeling dizzy and had to sit down to keep from falling then started having pain and pressure in her chest States that she wasnt able to drive home so family had to come get her because she thought it would get better States that since then she has continued to have dizziness and having pain and pressure in her chest that is not got better Denies anything that makes it better or worse and denies pain with inspiration Related Data Previous Rx's Medication Instructions Recorded ibuprofen 800 mg tablet (IBU) 800 mg PO Q8HP PRN Moderate Pain 02/15/22 #30 tabs azithromycin 250 mg tablet See Rx Instructions PO .COMPLEX 5 02/18/22 (Zithromax Z-Jonas) days #6 tabs methylprednisolone 4 mg tablets in See Rx Instructions .Route 02/18/22 a dose pack (Medrol (Jonas)) .COMPLEX 6 days #21 tabs Allergies Allergy/AdvReac Type Severity Reaction Status Date / Time No Known Drug Allergies Allergy Unknown Verified 08/02/21 11:04 [NKDA] [facility] Disclaimer: The information contained in this section may have been updated after the patient was seen, as this information can be updated by other users. 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 (Updated 02/18/22 @ 16:34 by Lorrie De La Torre RN) Asthma Back pain Cervicalgia Surgical History (Updated 02/18/22 @ 16:04 by Lorrie De La Torre RN) History of section Social History (Updated 02/18/22 @ 16:05 by Lorrie De La Torre RN) Smoking Status: Never smoker alcohol intake: never substance use type: denies use current occupational status: other Travel in the last 8 weeks: None household members: children housing: apartment ROS Obtained: Yes All systems reviewed & no additional complaints except as documented and Yes Systems reviewed as appropriate & no additional complaints except as documented Constitutional Constitutional: Reports system reviewed and no additional complaints, except as documented and Reports as per HPI ENT Ears, Nose, Mouth, and Throat: Reports system reviewed and no additional complaints, except as documented, Reports dizziness and Reports otalgia Cardiovascular Cardiovascular: Reports system reviewed and no additional complaints, except as documented, Reports as per HPI, Reports chest pain and Reports lightheadedness Respiratory Respiratory: Reports system reviewed and no additional complaints, except as documented and Reports as per HPI Gastrointestinal Gastrointestingal: Reports system reviewed and no additional complaints, except as documented and as per HPI Musculoskeletal Musculoskeletal: Reports system reviewed and no additional complaints, except as documented and Reports as per HPI Neurologic Neurologic: Reports dizziness Physical Exam General General appearance: alert and in no apparent distress Respiratory Respiratory exam: Present normal lung sounds bilaterally; Absent respiratory distress or wheezes Cardiovascular
--- NOTE | 2022-04-20 10:54 | ECG_ITS ---
APPROVED REPORT Exam: Resting ECG HR:67 bpm ECG Measurements Heart Rate 67 AXES WV 150 P 30 QRSd 87 QRS 72 QT 395 T 59 QTc 411 Conclusion SINUS RHYTHM NORMAL ECG UNCONFIRMED REPORT Electronically signed by : Marlon Singleton MD 04/20/2022 13:19:09
[2022-04-20 11:00] VITALS: BP 144/100; PULSE 80; RESP 16; TEMP 36.9; O2SAT 96; BMI 33.3
--- NOTE | 2022-04-20 11:18 | XR_ITS ---
FINAL REPORT CLINICAL HISTORY: dizziness and cp shielded COMPARISON: July 05, 2021 FINDINGS: A single portable view of the chest was obtained. The heart size and pulmonary vascularity are within normal limits. The mediastinum is within normal limits. No acute pulmonary abnormality is identified. There is mild rightward curvature of the thoracic spine. IMPRESSION: No active cardiopulmonary disease. Reviewed, Interpreted and Dictated by Chalo Bryan III, MD Transcribed by Veronica Hernandez Authenticated and [facility]
[2022-04-20 11:26] LABS: Basophils # 0.1 K/mm3 (0-0.2); Basophils % 0.7 % (0.1-2.0); Eosinophils # 0.1 K/mm3 (0.0-0.4); Eosinophils % 1.3 % (0.1-12.0); Hematocrit 42.7 % (37.0-47.0); Hemoglobin 13.6 g/dL (12.2-16.2); Lymphocytes # 1.6 K/mm3 (0.7-4.5); Mean Corpuscular HGB Conc 31.8 g/dL (31.8-35.4); Mean Corpuscular Hemoglobin 30.7 pg (27.0-31.2); Mean Corpuscular Volume 96.5 fl (81-99); Mean Platelet Volume 8.9 fl (7.4-10.4); Monocytes # 0.5 K/mm3 (0.1-1.0); Monocytes % 5.7 % (1.7-9.3); Neutrophils # 6.3 K/mm3 (1.8-7.8); Neutrophils % 73.1 % (37.0-80.0); Platelet Count 551 K/mm3 (142-424); Red Blood Count 4.43 M/mm3 (4.20-5.40); Red Cell Distribution Width 13.6 % (11.5-17.5); White Blood Count 8.6 K/mm3 (4.8-10.8)
--- NOTE | 2022-04-20 11:28 | HMH.EDGENADL ---
Discharge Plan Disposition Patient Disposition: Home, Self-Care Prescriptions Prescriptions: No Action ibuprofen [IBU] 800 mg tablet 800 mg PO Q8HP PRN (Reason: Moderate Pain) Qty: 30 0RF azithromycin [Zithromax Z-Jonas] 250 mg tablet See Rx Instructions .ROUTE .COMPLEX 5 Days Qty: 6 0RF Rx Instructions: For 250 mg dose pack: take 500 mg today (day 1), then 250 mg for 4 days (days 2-5) methylprednisolone [Medrol (Jonas)] 4 mg tablets,dose pack See Rx Instructions .Route .COMPLEX 6 Days Qty: 21 0RF Rx Instructions: taper pack; Referrals Follow up/Referrals: Mike Reyes MD [Primary Care Provider] - See instructions Activity Restrictions/Add. Instructions Additional Instructions/Restrictions: Follow-up with your primary care provider guarding this visit to the emergency department as needed. If you have any other concerning signs or symptoms, return to the ED for further evaluation Clinical Impressions Clinical Impression: Atypical chest pain, Episodic lightheadedness Discharge ED Provider: Dario Olivas General Adult HPI General Chief complaint: Chest Pain Stated complaint: Dizzy, LT ear pain, head pressure Time Seen by Provider: 04/20/22 10:40 Mode of Arrival: Ambulatory Source of Information: Patient Limitations: No Limitations Description of Symptoms (Recalled from ER Triage Doc. by RN): pt transfers from [facility] with c/o chest pain. pt states chest pain began yesterday around 1100. pain is located in middle of chest and goes outward. pt also c/o bilateral ear pain and pressure. pt also c/o dizziness then the chest pain began. History of Present Illness HPI narrative: This is an otherwise healthy 26-year-old female presenting with chest pain and dizziness. Patient states that she was diagnosed with otitis media 2 weeks prior to arrival, since that time, she is finished her antibiotic course, so she thought dizziness was related to ear infection. Dizziness started 1 day prior to arrival around 11 AM and shortly thereafter, patient developed chest pain. Dizziness resolved when patient sat down, but chest pain has persisted. It is moderate in intensity, 7 out of 10, feels as if someone stomped on my chest, and does not radiate. Not associated with shortness of breath, nausea, vomiting, neurologic deficits, abdominal pain, diaphoresis, trauma, or any other symptoms. 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 Patient also denies vision changes, facial swelling, contraceptive use, DVT or PE history or concerns, or any other concerning history. Related Data Previous Rx's Medication Instructions Recorded ibuprofen 800 mg tablet (IBU) 800 mg PO Q8HP PRN Moderate Pain 02/15/22 #30 tabs azithromycin 250 mg tablet See Rx Instructions PO .COMPLEX 5 02/18/22 (Zithromax Z-Jonas) days #6 tabs methylprednisolone 4 mg tablets in See Rx Instructions .Route 02/18/22 a dose pack (Medrol (Jonas)) .COMPLEX 6 days #21 tabs Allergies Allergy/AdvReac Type Severity Reaction Status Date / Time No Known Drug Allergies Allergy Unknown Verified 08/02/21 11:04 [NKDA] [facility] Disclaimer: The information contained in this section may have been updated after the patient was seen, as this information can be updated by other users. 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 (Updated 04/20/22 @ 12:14 by Dario Olivas MD) Asthma Back pain Cervicalgia Surgical History (Updated 02/18/22 @ 16:04 by Lorrie De La Torre RN) History of section Social History (Updated 02/18/22 @ 16:05 by Lorrie De La Torre RN) Smoking Status: Current every day smoker tobacco type: smokeless tobacco alcohol intake: never substance use type: denies use current occupational status: other Travel in the last 8 weeks: None household members: children housing: apartment ROS Obtained: Yes
[2022-04-20 11:29] LABS: Chloride 106 mmol/L (98-107); Sodium 141 mmol/L (136-145)
[2022-04-20 11:30] LABS: Potassium 3.8 mmoL/L (3.5-5.1)
[2022-04-20 11:31] VITALS: BP 125/83; PULSE 74; O2SAT 96
[2022-04-20 11:32] LABS: Alanine Aminotransferase 17 U/L (12-78); Albumin Level 4.3 g/dl (3.5-5.0); Albumin/Globulin Ratio 1.2 (1.1-1.8); Alkaline Phosphatase 95 U/L (38-126); Anion Gap 11.8 mEq/L (5-15); Aspartate Amino Transferase 30 U/L (14-36); Bilirubin,Total 0.5 mg/dl (0.2-1.3); Blood Urea Nitrogen 4 mg/dl (7-17); Calcium 8.8 mg/dl (8.4-10.2); Carbon Dioxide 27 mmol/L (22.0-30.0); Creatinine Clearance Estimated 267 mL/min (50-200); Estimated Glomerular Filt Rate 149 ml/min (>60); GFR (African American) 180 ML/MIN (>60); Globulin 3.5 g/dL (1.3-3.2); Glucose 109 mg/dl (74-100); Total Protein,Serum 7.8 g/dl (6.3-8.2)
[2022-04-20 11:36] LABS: HCG Qualitative, Serum Negative (Negative)
[2022-04-20 11:46] LABS: Troponin I < 0.01 ng/ml (0.00-0.034)
[2022-04-20 12:02] VITALS: BP 110/82; PULSE 73; RESP 20; O2SAT 97
[2022-04-20 13:44] VITALS: BP 121/77; PULSE 80; RESP 20; TEMP 36.8; O2SAT 98
== END 2022-04-20 13:46 | disposition home or self-care (01) ==
LOC: UTC 10:25 → ER 10:44
PROVIDERS: Emergency Provider Emergency Medicine; PCP Emergency Medicine
DX: R07.89 Other chest pain (principal); R42 Dizziness and giddiness; J45.909 Unspecified asthma, uncomplicated; F17.200 Nicotine dependence, unspecified, uncomplicated
CPT/HCPCS: 71045; 80053; 84484; 84703; 85025; 93005; 99285

== ENCOUNTER 2022-04-27 19:09 | Emergency (ER) | payer MEDICAID, SELFPAY ==
[2022-04-27 19:10] VITALS: BP 129/91; PULSE 77; RESP 19; TEMP 36.8; O2SAT 99; BMI 33.3
--- NOTE | 2022-04-27 19:45 | XR_ITS ---
PROCEDURE INFORMATION: Exam: XR Chest Exam date and time: 04/27/2022 8:14 PM Age: 26 years old Clinical indication: Cough and shortness of breath; Additional info: Cough, SOA, R lung pain TECHNIQUE: Imaging protocol: Radiologic exam of the chest. Views: 2 views. COMPARISON: CR XR CHEST PORTABLE 04/20/2022 11:43 AM FINDINGS: Lungs: Clear lungs. Pleural spaces: No pneumothorax. No sizable pleural effusion. Heart/Mediastinum: No cardiomegaly. Bones/joints: Unremarkable. IMPRESSION: Clear lungs.
[2022-04-27 19:49] LABS: Microscopic, Urine URINE MICROSCOPIC (MICROSCOPIC)
--- NOTE | 2022-04-27 19:50 | ECG_ITS ---
APPROVED REPORT Exam: Resting ECG HR:72 bpm ECG Measurements Heart Rate 72 AXES NM 142 P 39 QRSd 85 QRS 86 QT 372 T 79 QTc 397 Conclusion SINUS RHYTHM NORMAL ECG UNCONFIRMED REPORT Electronically signed by : Marlon Singleton MD 04/28/2022 08:52:17
[2022-04-27 19:52] LABS: Appearance,Urine CLEAR (Clear); Bilirubin,Urine Negative (Negative); Blood, Urine TRACE-I (Negative); Color,Urine STRAW (Yellow); Glucose,Urine (UA) Negative (Negative); Ketones,Urine Negative (Negative); Leukocyte Esterase,Urine Negative (Negative); Nitrate,Urine Negative (Negative); Protein,Urine Negative (Negative); Specific Gravity, Urine <= 1.005 (1.005-1.030); Urobilinogen,Urine 0.2 EU/dl (0.2)
[2022-04-27 19:53] LABS: Urine Pregnancy, HCG Qual. Negative (Negative)
--- NOTE | 2022-04-27 20:00 | PC.NURSE ---
Dr. Reyes at bedside
[2022-04-27 20:01] LABS: Coronavirus 19, PCR Not Detected (NotDetected); Influenza A, PCR Not Detected (NotDetected); Influenza B, PCR Not Detected (NotDetected)
[2022-04-27 20:04] VITALS: PULSE 78; O2SAT 97
[2022-04-27 20:08] LABS: Basophils # 0.1 K/mm3 (0-0.2); Basophils % 0.8 % (0.1-2.0); Eosinophils # 0.1 K/mm3 (0.0-0.4); Eosinophils % 0.9 % (0.1-12.0); Hematocrit 40.4 % (37.0-47.0); Hemoglobin 13.5 g/dL (12.2-16.2); Lymphocytes # 2.2 K/mm3 (0.7-4.5); Lymphocytes % 18.2 % (10-50); Mean Corpuscular HGB Conc 33.5 g/dL (31.8-35.4); Mean Corpuscular Hemoglobin 30.5 pg (27.0-31.2); Mean Corpuscular Volume 91.1 fl (81-99); Mean Platelet Volume 8.2 fl (7.4-10.4); Monocytes # 0.7 K/mm3 (0.1-1.0); Monocytes % 5.4 % (1.7-9.3); Neutrophils % 74.7 % (37.0-80.0); Platelet Count 533 K/mm3 (142-424); Red Blood Count 4.44 M/mm3 (4.20-5.40); Red Cell Distribution Width 13.5 % (11.5-17.5); White Blood Count 12.1 K/mm3 (4.8-10.8)
--- NOTE | 2022-04-27 20:08 | HMH.EDSOB ---
Discharge Plan Disposition Patient Disposition: Home, Self-Care Prescriptions Prescriptions: New azithromycin [azithromycin] 250 mg tablet 250 mg PO DIRECTED Qty: 6 0RF Rx Instructions: Take two (2) tablets on day #1, then one (1) tablet day #2 thru #5 prednisone [prednisone] 20 mg tablet 20 mg PO BID Qty: 10 0RF Referrals Follow up/Referrals: Mike Reyes MD [Primary Care Provider] - See instructions Clinical Impressions Clinical Impression: Pleurisy Instructions Patient Instructions: DI for Pleurisy Discharge ED Provider: Mike Reyes Resp/SOB HPI General Chief Complaint: Shortness of Breath/Dyspnea Stated Complaint: right side side pain and sore throat Time Seen by Provider: 04/27/22 20:08 Mode of Arrival: Family Vehicle Source of Information: Patient and Medical Record Limitations: No Limitations Description of Symptoms (Recalled from ER Triage Doc. by RN): Pt c/o R sided rib and lung pain, dry cough, sore throat, body aches, chills, and SOA that began yesterday. She took Ibuprofen this am without relief. Denies fever or n/v/d. Denies any significant PMH. History of Present Illness sore throat and rt sided chest pain assoc with cough and insp- no recent viral illness- no fever/rash or trauma Complaint: shortness of breath, cough, pain with inspiration and chest pain Onset (ago): day(s) Severity: moderate Consistency/Duration: intermittent Associated symptoms: denies other symptoms Related Data Home oxygen amount: none Previous Rx's Medication Instructions Recorded azithromycin 250 mg tablet 250 mg PO DIRECTED #6 tabs 04/27/22 prednisone 20 mg tablet 20 mg PO BID #10 tabs 04/27/22 Allergies Allergy/AdvReac Type Severity Reaction Status Date / Time No Known Drug Allergies Allergy Unknown Verified 08/02/21 11:04 [NKDA] [facility] Disclaimer: The information contained in this section may have been updated after the patient was seen, as this information can be updated by other users. 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 (Updated 04/27/22 @ 21:15 by Mike Reyes MD) Asthma Back pain Cervicalgia Surgical History (Updated 02/18/22 @ 16:04 by Lorrie De La Torre RN) History of section Social History (Updated 02/18/22 @ 16:05 by Lorrie De La Torre RN) Smoking Status: Current every day smoker tobacco type: smokeless tobacco alcohol intake: never substance use type: denies use current occupational status: other Travel in the last 8 weeks: None household members: children housing: apartment ROS Obtained: Yes All systems reviewed & no additional complaints except as documented Physical Exam General General appearance: alert Head Head exam: normocephalic Eye Eye exam: Present PERRL and EOMI ENT ENT exam: Present mucous membranes moist Neck Neck exam: Present trachea midline Respiratory Respiratory exam: Present normal lung sounds bilaterally; Absent respiratory distress Cardiovascular Cardiovascular exam: Present regular rate; Absent systolic murmur or rubs Abdominal Exam Abdominal exam: Present soft Extremities Exam Extremities exam: Present full ROM; Absent calf tenderness Neurological Exam Neurological exam: Present alert, oriented X3 and CN II-XII intact; Absent motor sensory deficit Psychiatric Psychiatric exam: Present normal affect Skin Skin exam: Absent rash Medical Decision Making Medical Records Medical records reviewed: Yes I reviewed the patient's medical records. Babar Inquiry Pt receiving controlled substance: No Vital Signs: 04/27/22 19:10 04/27/22 20:04 Temperature 98.2 F Temperature Source Oral Pulse Rate 78 Pulse Rate [Right] 77 Respiratory Rate 19 Blood Pressure [Right Arm] 129/91 H Blood Pressure Mean [Right Arm] 103 Blood Pressure Source [Right Arm] Automatic Cuff 02 Sat by Pulse Oximetry 99 97 Oxygen Delivery Method Room Air Room Air Lab Data Lab results reviewed: Yes I revi
[2022-04-27 20:13] LABS: Chloride 106 mmol/L (98-107); Potassium 3.6 mmoL/L (3.5-5.1); Sodium 141 mmol/L (136-145)
[2022-04-27 20:15] LABS: Strep Scrn Group A (Rapid) Negative (Negative)
[2022-04-27 20:16] LABS: Alanine Aminotransferase 13 U/L (12-78); Albumin Level 4.6 g/dl (3.5-5.0); Albumin/Globulin Ratio 1.4 (1.1-1.8); Alkaline Phosphatase 92 U/L (38-126); Anion Gap 12.6 mEq/L (5-15); Aspartate Amino Transferase 24 U/L (14-36); Bilirubin,Total 0.5 mg/dl (0.2-1.3); Blood Urea Nitrogen 5 mg/dl (7-17); Calcium 8.8 mg/dl (8.4-10.2); Carbon Dioxide 26 mmol/L (22.0-30.0); Creatinine Clearance Estimated 223 mL/min (50-200); Estimated Glomerular Filt Rate 121 ml/min (>60); GFR (African American) 146 ML/MIN (>60); Globulin 3.2 g/dL (1.3-3.2); Glucose 83 mg/dl (74-100); Total Protein,Serum 7.8 g/dl (6.3-8.2)
[2022-04-27 20:23] LABS: Bacteria,Urine Trace /lpf
[2022-04-27 20:42] LABS: Troponin I < 0.01 ng/ml (0.00-0.034)
[2022-04-27 21:00] VITALS: BP 116/83; PULSE 78; RESP 18; O2SAT 99
[2022-04-27 21:27] VITALS: BP 116/83; PULSE 78; RESP 18; TEMP 36.6; O2SAT 99
== END 2022-04-27 21:30 | disposition home or self-care (01) ==
PROVIDERS: Emergency Provider Emergency Medicine; PCP Emergency Medicine
DX: R09.1 Pleurisy (principal); J45.909 Unspecified asthma, uncomplicated; F17.210 Nicotine dependence, cigarettes, uncomplicated; Z20.822 Contact with and (suspected) exposure to COVID-19
CPT/HCPCS: 71046; 80053; 81001; 81025; 84484; 85025; 87430; 93005; 96361; 96374; 96375; 99285; C9803; U0003; U0005

== ENCOUNTER 2022-08-13 15:25 | Emergency (ER) | payer MEDICAID, SELFPAY ==
[2022-08-13 17:00] VITALS: BP 113/75; PULSE 68; RESP 18; TEMP 36.7; O2SAT 100; BMI 34.2
[2022-08-13 17:05] LABS: UTC Strep Screen (Rapid) Negative (Negative)
--- NOTE | 2022-08-13 17:10 | EXP.UTC ---
Discharge Plan Disposition Patient Disposition: Home, Self-Care Condition: Good Prescriptions Prescriptions: No Action azithromycin [azithromycin] 250 mg tablet 250 mg PO DIRECTED Qty: 6 0RF Rx Instructions: Take two (2) tablets on day #1, then one (1) tablet day #2 thru #5 prednisone [prednisone] 20 mg tablet 20 mg PO BID Qty: 10 0RF Referrals Follow up/Referrals: Mike Reyes MD [Primary Care Provider] - See instructions Activity Restrictions/Add. Instructions Additional Instructions/Restrictions: Monitor temperature. Seek treatment if fever develops. Follow-up immediately if new or worse symptoms worsen or no noticeable improvement over 48 hours. Increase fluids such as water, Gatorade, Powerade, juice or Pedialyte with limited formula/dietary in children No food is okay as long as you are drinking. Once ready to eat start bland such as bananas, rice, applesauce, toast. Contagious until no diarrhea, vomiting, fever times 48 hours without medication Avoid antidiarrheals unless told otherwise. Best to let the virus run its course. Follow-up immediately for new or worsening symptoms or no noticeable improvement over the next 48 hours. Clinical Impressions Clinical Impression: Upper respiratory infection, viral, Diarrhea Instructions Patient Instructions: DI for Viral Upper Respiratory Infection -- Adult, Diarrhea Discharge ED Provider: Ailin ([facility])Butch [facility] HPI General Stated complaint: Body aches,RAMOS. Diarrhea Mode of Arrival: Ambulatory Source of Information: Patient Limitations: No Limitations Time Seen by Provider: 08/13/22 17:10 Description of Symptoms (Recalled from Triage Doc. by RN): pt c/o myalgia, diarrhea and a fever x3d HEENT Symptoms (Recalled from RN notes): No Resp Symptoms (Recalled from RN notes): No Skin Symptoms (Recalled from RN notes): No MS Symptoms (Recalled from RN notes): No Functional Status (Recalled from RN notes): wnl History of Present Illness Provider Complaint: 27 yr old female presents for c/o myalgia, scratchy throat,diarrhea and a fever x3d Related Data Previous Rx's Medication Instructions Recorded azithromycin 250 mg tablet 250 mg PO DIRECTED #6 tabs 04/27/22 prednisone 20 mg tablet 20 mg PO BID #10 tabs 04/27/22 Allergies Allergy/AdvReac Type Severity Reaction Status Date / Time No Known Drug Allergies Allergy Unknown Verified 08/13/22 17:05 [NKDA] Worker's Comp Is this a Worker's Comp case?: No [facility] Disclaimer: The information contained in this section may have been updated after the patient was seen, as this information can be updated by other users. 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 , [employer]) Asthma Back pain Cervicalgia Surgical History , [employer]) History of section Social History , [employer]) Smoking Status: Current every day smoker tobacco type: smokeless tobacco alcohol intake: never substance use type: denies use current occupational status: other Travel in the last 8 weeks: None household members: children housing: apartment ROS Obtained: Yes All systems reviewed & no additional complaints except as documented Constitutional Constitutional: Reports system reviewed and no additional complaints, except as documented, Reports as per HPI, Reports body ache, Reports fever(s) and Reports malaise Eyes Eyes: Reports system reviewed and no additional complaints, except as documented ENT Ears, Nose, Mouth, and Throat: Reports system reviewed and no additional complaints, except as documented, Reports as per HPI, Reports nasal congestion, Reports nasal discharge and Reports sore throat Cardiovascular Cardiovascular: Reports system reviewed and no additional complaints, except as documented Respiratory Respiratory: Reports system reviewed and no additional
[2022-08-13 17:36] VITALS: BP 113/75; PULSE 68; RESP 18; TEMP 36.7
[2022-08-13 17:38] LABS: Adenovirus,PCR Not Detected (NotDetected); Bordetella Pertussis Not Detected (NotDetected); Chlamydophila Pneumoniae, PCR Not Detected (NotDetected); Coronavirus 19, PCR Not Detected (NotDetected); Coronavirus 229E Not Detected (NotDetected); Coronavirus NL63 Not Detected (NotDetected); Coronavirus OC43 Not Detected (NotDetected); Coronovirus HKU1,PCR Not Detected (NotDetected); Human Metapneumovirus Not Detected (NotDetected); Influenza A, PCR Not Detected (NotDetected); Influenza AH1, 2009 Not Detected (NotDetected); Influenza AH1, PCR Not Detected (NotDetected); Influenza AH3,PCR Not Detected (NotDetected); Influenza B, PCR Not Detected (NotDetected); Mycoplasma Pneumoniae, PCR Not Detected (NotDetected); Parainfluenza 1, PCR Not Detected (NotDetected); Parainfluenza 2, PCR Not Detected (NotDetected); Parainfluenza 3, PCR Not Detected (NotDetected); Parainfluenza 4, PCR Not Detected (NotDetected); Respiratory Syncytial Virus Not Detected (NotDetected); Rhinovirus/Enterovirus Not Detected (NotDetected)
== END 2022-08-13 17:36 | disposition home or self-care (01) ==
PROVIDERS: Emergency Provider Nurse Practitioner Family; PCP Emergency Medicine
DX: J06.9 Acute upper respiratory infection, unspecified (principal); B34.9 Viral infection, unspecified; R19.7 Diarrhea, unspecified; R50.9 Fever, unspecified; F17.290 Nicotine dependence, other tobacco product, uncomplicated
CPT/HCPCS: 87581; 87632; 87798; 87880; 99212; 99214; C9803; G0463; U0003; U0005

== ENCOUNTER → 2022-12-15 08:45 | Outpatient (CLI) | payer MEDICAID, SELFPAY ==
--- NOTE | 2022-12-15 08:51 | US_ITS ---
PROCEDURE: US TRANSVAGINAL CLINICAL INDICATION: LLQP COMPARISON: No exams were available for comparison FINDINGS: Transvaginal sonographic images of the pelvis were obtained. UTERUS: 7.6 cm x 5.4 cmx 4.3 cm with a combined endometrial thickness of 8.7mm. The uterus is retroverted. The vascularity around the periphery of the uterus appears prominent in a few of the PACS images. LEFT OVARY: 2.2 cmx0.7 cmx1.6cm with a volume of 4.7ml. There are several follicles within the left ovary. The largest is 1.2 cm. RIGHT OVARY: 2.4 cmx 2.4 cmx1.4 sent. With a volume of 4.3ml. There are several follicles in the right ovary. The largest measures 5 mm. Both ovaries are seen and appear normal. Doppler flow to both ovaries are seen. There is no fluid in the cul-de-sac. IMPRESSION: 1. Retroverted uterus normal in shape and size. There is prominent vascularity about the periphery of the uterus. 2. Both ovaries are seen and appear normal. Each has several follicles. 3. No fluid in the cul-de-sac. Dictated by: Marco Pichardo MD 12/18/2022 08:06 Marco Pichardo MD in OV 12/18/2022 08:06
== END ==
PROVIDERS: PCP Emergency Medicine; Visit Provider Obstetrics & Gynecology
DX: R10.32 Left lower quadrant pain (principal)
CPT/HCPCS: 76830

== ENCOUNTER 2023-10-22 18:42 | Emergency (ER) | payer MEDICAID, SELFPAY ==
[2023-10-22 18:50] VITALS: BP 130/83; PULSE 80; RESP 18; TEMP 36.7; O2SAT 97; BMI 33.8
--- NOTE | 2023-10-22 19:05 | XR_ITS ---
PROCEDURE INFORMATION: Exam: XR Right Hand Exam date and time: 10/22/2023 7:13 PM Age: 28 years old Clinical indication: Injury or trauma; Other: Wrestling and hurt hand; Swelling (edema); Finger; Right thumb TECHNIQUE: Imaging protocol: Radiologic exam of the right hand. Views: 3 or more views. Total images: 3 COMPARISON: No relevant prior studies available. FINDINGS: Bones/joints: Limited by positioning. Persistent mild flexion of the interphalangeal joint of the thumb. No acute fracture or joint dislocation. No concerning bone lesions or calcifications. Joint spaces are maintained. Soft tissues: Unremarkable soft tissues. IMPRESSION: 1. No acute osseous abnormality. 2. Persistent mild flexion of the interphalangeal joint of the thumb. Correlate clinically for ligamentous injury.
--- NOTE | 2023-10-22 19:44 | ED_ITS ---
Discharge Plan Disposition Patient Disposition: Home, Self-Care Condition: Good Referrals Follow up/Referrals: Ankur Colindres DO [Primary Care Provider] - See instructions Activity Restrictions/Add. Instructions Additional Instructions/Restrictions: Call Hand tomorrow for appointment as soon as possible or ?[phone] tel:[phone] Over the counter Motrin and/or Tylenol as directed for pain Return if needed Ice to area 20min every couple of hours Straight to ER if any life threatening symptoms Clinical Impressions Clinical Impression: Finger injury Instructions Patient Instructions: How To Perform RICE (Rest, Ice, Compress, Elevate) Discharge ED Provider: Anne Marie Robertson [facility] General Stated complaint: AO 10/21/23 1930 injury right thumb Mode of Arrival: Ambulatory Source of Information: Patient Limitations: No Limitations Time Seen by Provider: 10/22/23 19:44 Description of Symptoms (Recalled from Triage Doc. by RN): PATIENT STATES SHE WAS TOSSING A FRIEND IN [place]ST N[place] AND INJURED HER RIGHT THUMB. HER THUMB IS BENT AT THE DISTAL JOINT AND SHE CANNOT MOVE IT. HEENT Symptoms (Recalled from RN notes): No Resp Symptoms (Recalled from RN notes): No Skin Symptoms (Recalled from RN notes): No MS Symptoms (Recalled from RN notes): Yes Functional Status (Recalled from RN notes): WNL History of Present Illness Provider Complaint: Patient states that [place] and they was horse playing and she was tossing her friend in the water and her right thumb bent sideways and felt a pop and then she noticed her thumb looked like she was hitch hiking and she was unable to straighten it and hurt when she would try to move it Related Data Allergies Allergy/AdvReac Type Severity Reaction Status Date / Time No Known Drug Allergies Allergy Unknown Verified 12/13/22 09:13 [NKDA] Worker's Comp Is this a Worker's Comp case?: No [facility] Disclaimer: The information contained in this section may have been updated after the patient was seen, as this information can be updated by other users. 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 Asthma Back pain Cervicalgia LLQ abdominal pain Surgical History History of section Social History Smoking Status: Current every day smoker tobacco type: smokeless tobacco alcohol intake: never substance use type: denies use current occupational status: other Travel in the last 8 weeks: None household members: children housing: apartment ROS Obtained: Yes All systems reviewed & no additional complaints except as documented and Yes Systems reviewed as appropriate & no additional complaints except as documented Constitutional Constitutional: Reports system reviewed and no additional complaints, except as documented and Reports as per HPI Respiratory Respiratory: Reports system reviewed and no additional complaints, except as documented and Reports as per HPI Gastrointestinal Gastrointestingal: Reports system reviewed and no additional complaints, except as documented and as per HPI Musculoskeletal Musculoskeletal: Reports system reviewed and no additional complaints, except as documented, Reports as per HPI and Reports other (pain and unable to straighten right thumb) Physical Exam General General appearance: alert and in no apparent distress Respiratory Respiratory exam: Present normal lung sounds bilaterally; Absent respiratory distress or wheezes Cardiovascular Cardiovascular exam: Present regular rate, normal rhythm and normal heart sounds Expanded Upper Extremity Exam Right: Hand L/R front image: 2 1. other (trigger finger noted, patient reports unable to straighten or move finger) Neurological Exam Neurological exam: Present alert, oriented X3 and normal gait Medical Decision Making Babar Inquiry Pt receiving controlled substance: No Babar was queried for this patient: No Vital Signs: 10/22/23 18:50 Temperature 98.0 F Temperature Source Oral Pulse Rate [Left Brachial] 80 Respiratory Rate 18 Blood Pressure [Left Arm] 130/83 Blood Pressure Mean [Left Arm] 98 Blood Pressure Source [Left Arm] Automatic Cuff Blood Pressure Position [Left Arm] Sitting 02 Sat by Pulse Oximetry 97 Oxygen Delivery Method Room Air Orders (Tests/Meds): ORDERS Category Date Time Status Hand XR right minimum 3 views [XR hand RT min 3V] Stat Exams 10/22/23 19:05 Taken Radiology Data #1: Image(s): Hand Image Reviewed: Yes I have reviewed radiologist's interpretation FINDINGS: Bones/joints: Limited by positioning. Persistent mild flexion of the interphalangeal joint of the thumb. No acute fracture or joint dislocation. No concerning bone lesions or calcifications. Joint spaces are maintained. Soft tissues: Unremarkable soft tissues. IMPRESSION: 1. No acute osseous abnormality. 2. Persistent mild flexion of the interphalangeal joint of the thumb. Correlate clinically for ligamentous injury. Procedures Orthopedic Splinting/Casting Injury #1: Side: right Upper Extremity Injury Location: thumb Upper Extremity Immobilizer: finger (other) and Homar wrap Post Cast/Splinting Neuro Status: intact and no change Post Cast/Splinting Vasc Status: intact and no change
--- NOTE | 2023-10-22 20:26 | PC.NURSE ---
METAL THUMB SPLINT AND APPLE WRAP APPLIED TO RIGHT THUMB
[2023-10-22 20:28] VITALS: BP 130/83; PULSE 80; RESP 18; TEMP 36.7; O2SAT 97
== END 2023-10-22 20:35 | disposition home or self-care (01) ==
PROVIDERS: Emergency Provider Nurse Practitioner; PCP Internal Medicine
DX: M65.311 Trigger thumb, right thumb (principal); S69.91XA Unspecified injury of right wrist, hand and finger(s), initial encounter; X50.0XXA Overexertion from strenuous movement or load, initial encounter
CPT/HCPCS: 73130; 99212; 99214; G0463

== ENCOUNTER 2024-01-02 18:57 | Emergency (ER) | payer SELFPAY ==
[2024-01-02 18:59] VITALS: BP 131/98; PULSE 78; RESP 18; TEMP 36.7; O2SAT 99; BMI 32.8
--- NOTE | 2024-01-02 19:17 | ECG_ITS ---
APPROVED REPORT Exam: Resting ECG HR:76 bpm ECG Measurements Heart Rate 76 AXES VA 132 P 34 QRSd 84 QRS 59 QT 386 T 60 QTc 416 Conclusion Sinus rhythm Electronically signed by : SOL CARDOSO, 01/03/2024 21:43:47
--- NOTE | 2024-01-02 19:27 | ED_ITS ---
Discharge Plan Disposition Patient Disposition: Home, Self-Care Referrals Follow up/Referrals: Ankur Colindres DO [Primary Care Provider] - See instructions Activity Restrictions/Add. Instructions Additional Instructions/Restrictions: Call your family doctor to establish care for this visit to the emergency department and schedule follow-up within 48 hours to ensure improvement. If you have any worsening of your condition or any other concerning signs or symptoms, return to the emergency department or your primary care doctor for further evaluation. Talk to Dr. Colindres about referral to Dr. Deleon, neurology. She will be able to do EEG and formally determine whether or not you are having epileptic seizures. Seizure precautions - do not do any of these activities until cleared by your neurologist: 1) avoid sleep deprivation 2) avoid open bodies of water and open flames 3) avoid swimming alone 4) take showers, do not take baths 5) avoid any situation where loss of consciousness may predispose to injury or 6) avoid driving Clinical Impressions Clinical Impression: Seizure-like activity Instructions Patient Instructions: DI for Seizure Disorder -- Adult, DI for Seizure (Not Epilepsy/Seizure Disorder), DI for Seizure Disorder -- Child Print Language Print Language: Tanzanian Discharge ED Provider: Dario Olivas General Adult HPI General Chief complaint: Seizure Stated complaint: Seizure Time Seen by Provider: 01/02/24 19:01 History of Present Illness HPI narrative: Please note that above description of symptoms, in this electronic medical record under categorization of recalled from ER triage doctor by RN are reflective of an initial nursing assessment, however, is not reflective of my full history and physical exam that was personally taken and clarified. Consequentially, this preceding description of symptoms, which may include the patient's categorized chief complaint in the EMR, do not reflect my personal clinical impression, and the ultimate description of history of present illness and patient stated complaints should be deferred to this section of the note. Unless stated otherwise or congruent with this section of the note, additional signs, symptoms, or incongruence should be interpreted as inaccurate with my clinical impression. Related Data Allergies Allergy/AdvReac Type Severity Reaction Status Date / Time No Known Drug Allergies Allergy Unknown Verified 12/13/22 09:13 [NKDA] [facility] Disclaimer: The information contained in this section may have been updated after the patient was seen, as this information can be updated by other users. 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 Asthma Back pain Cervicalgia LLQ abdominal pain Surgical History History of section Social History Smoking Status: Never smoker alcohol intake: never substance use type: denies use current occupational status: other Travel in the last 8 weeks: None household members: children housing: apartment ROS Obtained: Yes All systems reviewed & no additional complaints except as documented Physical Exam General General appearance: alert Head Head exam: atraumatic and normocephalic Eye Eye exam: Present normal appearance, PERRL and EOMI Neck Neck exam: Present normal inspection, full ROM and trachea midline Respiratory Respiratory exam: Absent respiratory distress, wheezes, stridor, accessory muscle use or prolonged expiratory phase Cardiovascular Cardiovascular exam: Present other (Pulses equal symmetric in upper and lower extremities) Abdominal Exam Abdominal exam: Present soft; Absent distention, tenderness or pulsatile mass Extremities Exam Extremities exam: Absent edema Neurological Exam Neurological exam: Present alert, oriented X3 and CN II-XII intact; Absent motor sensory deficit Skin Skin exam: Present warm and dry; Absent diaphoresis or erythema Medical Decision Making Medical Records Medical records reviewed: Yes I reviewed the patient's medical records. Screening: Per USPSTF and CDC recommendations, given the prevalence of disease in our region, it is our hospital?s policy to screen for HIV and viral Hepatitis for all patients aged 18 and over and those with ongoing risk factors. Babar Inquiry Pt receiving controlled substance: No Babar was queried for this patient: No Vital Signs: 01/02/24 18:59 01/02/24 19:30 01/02/24 20:10 Temperature 98.1 F Temperature Source Oral Pulse Rate 80 80 Pulse Rate [Left Radial] 78 Respiratory Rate 18 Blood Pressure 122/85 140/85 Blood Pressure [Right Arm] 131/98 H Blood Pressure Mean [Right Arm] 109 Blood Pressure Source Blood Pressure Source [Right Arm] Automatic Cuff Blood Pressure Position Blood Pressure Position [Right Arm] Sitting 02 Sat by Pulse Oximetry 99 98 100 Oxygen Delivery Method Room Air 01/02/24 20:51 Temperature 98.2 F Temperature Source Oral Pulse Rate 78 Pulse Rate [Left Radial] Respiratory Rate 16 Blood Pressure 165/72 H Blood Pressure [Right Arm] Blood Pressure Mean [Right Arm] Blood Pressure Source Automatic Cuff Blood Pressure Source [Right Arm] Blood Pressure Position Sitting Blood Pressure Position [Right Arm] 02 Sat by Pulse Oximetry Oxygen Delivery Method Room Air Lab Data Lab Results 01/02/24 19:12: WBC 11.8 H, RBC 4.71, Hgb 15.0, Hct 47.6 H, MCV 101.0 H, MCH 31.9 H, MCHC 31.6 L, RDW 13.9, Plt Count 478 H, MPV 9.1, Neut % (Auto) 74.6, Lymph % (Auto) 19.4, Terrell % (Auto) 5.0, Eos % (Auto) 0.6, Baso % (Auto) 0.5, N eut # (Auto) 8.8 H, Lymph # (Auto) 2.3, Terrell # (Auto) 0.6, Eos # (Auto) 0.1, Baso # (Auto) 0.1, Sodium 139, Potassium 3.8, Chloride 107, Carbon Dioxide 26, Anion Gap 9.8, BUN 13, Creatinine 0.60, Estimated Creat Clear 210, Estimated GFR 119, Est GFR ( Amer) 144, Glucose 87, Lactate 0.8, Calcium 9.3, Magnesium 1.9, Total Bilirubin 0.6, AST 35, ALT 22, Alkaline Phosphatase 92, Troponin I < 0.01, Total Protein 8.1, Albumin 4.8, Globulin 3.3 H, Albumin/Globulin Ratio 1.5, TSH 2.09, Thyroxine (T4) 9.6, Salicylates < 1.0 L, Acetaminophen < 10 L, Plasma/Serum Alcohol < 10, HIV 1&2 Antibody Rapid Nonreactive 01/02/24 19:29: VBG pH 7.35, VBG pCO2 42.7, VBG pO2 32.6, VBG HCO3 23.2, VBG Total CO2 24.5, VBG O2 Saturation 61.7, VBG Base Excess -2.4, VBG Lactic Acid 1.2 01/02/24 19:12 01/02/24 19:12 Orders (Tests/Meds): ED MEDICATIONS Discontinued Medications Generic Name Dose Route Start Last Admin Trade Name Freq PRN Reason Stop Dose Admin Sodium Chloride 1,000 mls @ 999 mls/hr 01/02/24 19:27 01/02/24 19:49 Sod Chlor 0.9% 1000ml Bag IV 01/02/24 20:27 999 mls/hr .Q1H1M ONE Administration Magnesium Sulfate 2 gm in 50 mls @ 50 mls/hr 01/02/24 19:46 01/02/24 20:04 Magnesium Sulfate 2gm/50ml Premix IV 01/02/24 20:45 50 mls/hr ONCE ONE Administration ORDERS Category Date Time Status CT head/brain wo con Stat Cat Scan 01/02/24 19:27 Completed XR chest portable Stat Exams 01/02/24 19:27 Completed Acetaminophen Stat Lab 01/02/24 19:12 Completed Complete Blood Count Auto Diff Stat Lab 01/02/24 19:12 Completed Comprehensive Metabolic Panel Stat Lab 01/02/24 19:12 Completed Ethanol [Ethyl Alcohol] Stat Lab 01/02/24 19:12 Completed HIV (1&2) Antibody Rapid Stat Lab 01/02/24 19:12 Completed Hep C Ab with Reflex to RNA Stat Lab 01/02/24 19:12 Received Lactic Acid Stat Lab 01/02/24 19:12 Completed Magnesium Stat Lab 01/02/24 19:12 Completed Salicylate Stat Lab 01/02/24 19:12 Completed T4 (Thyroxine) Stat Lab 01/02/24 19:12 Completed TSH [Thyroid Stimulating Hormone] Stat Lab 01/02/24 19:12 Completed Troponin I Stat Lab 01/02/24 19:12 Completed Venous Blood Gas Stat RT 01/02/24 19:29 Completed Medical Decision Narrative: 28-year-old female no relevant medical history presenting with concern for first-time seizure. Patient states that she was at home on the couch with her significant other, leaned over and thus lasting I remember. Significant other corroborating story. States that patient had full body trembling/chills that lasted 25 to 30 seconds, then patient was done. During this episode, eyes were fluttering and pointed upward. Patient returned to baseline a few minutes after this episode. Has never had 1 in the past or has not had another one since. Patient denies sleeplessness, insomnia, stimulant use, new medication changes, family history of seizures, or any other exposures. She does state that she has had a recent in the family which has been really hard for her to cope with and has been dealing with depression because of this. History was obtained via conversation with patient and significant other. On arrival, patient hemodynamically stable, alert, oriented x4, appropriate, GCS 15, moving all extremities spontaneously, pupils equal and reactive to light. Full physical exam performed and significant for neurologically intact female who is in no acute distress. Alert and oriented, cranial nerve, cerebellar, motor and sensory exams intact. Patient ambulatory without issue. Cardiopulmonary exam within normal limits, abdomen soft, nontender, nondistended. Differential includes conversion disorder, metabolic disorder, intoxication, withdrawal, arrhythmia, among others. Patient placed on continuous cardiac monitoring and continuous pulse ox with initial blood pressure 131/98, heart rate 78, saturation 99% on room air. Independent interpretation of EKG shows sinus rhythm 76 beats a minute no ST or T wave changes concern for acute ischemia. CT 132, QRS 84, QTc 416. Patient was given fluids, magnesium for symptomatic management and correction of underlying abnormalities. Workup independently interpreted and significant for nonactionable CBC. Chemistry nonactionable. VBG nonactionable, normal lactic acid at 1.2. Troponin negative. On independent interpretation of imaging, no acute cardiopulmonary space disease on chest x-ray, no acute intracranial hemorrhage or intracranial mass on CT head. See radiology read for full review of final results. On reevaluation, patient resting comfortably, no consider other seizure episode. 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 It was explained that an acute seizure disorder cannot be ruled out, seizure precautions were discussed. Recommended that she follow-up with her family doctor and get referral to Dr. Deleon for formal EEG. Because patient at baseline without signs or symptoms of clinical decompensation, deemed appropriate for discharge. Results were relayed to patient who voiced understanding and were agreeable to outpatient management and follow up. I discussed my clinical impression with patient and answered all questions. At this time, the evidence for any other entities in the differential is insufficient to warrant any further testing or ED observation. This was explained as well. Advisory was given that persistent or worsening symptoms require further evaluation. I confirmed the understanding of this discussion. Medical Engineer disclaimer Much of this encounter note is an electronic sparmaker spoken language to printed text. Electronic sparmaker of the spoken language may permit errors. Although I have reviewed the note, some errors may still exist. Critical Care Critical Care Time Critical Care Time: No
--- NOTE | 2024-01-02 19:27 | XR_ITS ---
PROCEDURE INFORMATION: Exam: XR Chest Exam date and time: 01/02/2024 7:36 PM Age: 28 years old Clinical indication: Other: Seizure like activity; Additional info: New sz like activity TECHNIQUE: Imaging protocol: Radiologic exam of the chest. Views: 1 view. COMPARISON: CR XR CHEST 2V 04/27/2022 8:14 PM FINDINGS: Lungs: Unremarkable. No consolidation. Pleural spaces: Unremarkable. No pleural effusion. No pneumothorax. Heart/Mediastinum: Unremarkable. No cardiomegaly. Bones/joints: Unremarkable. IMPRESSION: Stable chest x-ray with no acute disease.
--- NOTE | 2024-01-02 19:27 | CT_ITS ---
PROCEDURE INFORMATION: Exam: CT Head Without Contrast Exam date and time: 01/02/2024 8:01 PM Age: 28 years old Clinical indication: Other: Seizure like activity; Additional info: New seizure like activity TECHNIQUE: Imaging protocol: Computed tomography of the head without contrast. Radiation optimization: All CT scans at this facility use at least one of these dose optimization techniques: automated exposure control; mA and/or kV adjustment per patient size (includes targeted exams where dose is matched to clinical indication); or iterative reconstruction. COMPARISON: CT HEAD/BRAIN WO CON 06/09/2020 8:03 PM FINDINGS: Brain: Normal. No hemorrhage. Unremarkable white matter. No mass effect. Cerebral ventricles: No ventriculomegaly. Paranasal sinuses: Mucous retention cyst right maxillary sinus. Sinuses otherwise clear. Mastoid air cells: Visualized mastoid air cells are well aerated. Bones: Unremarkable. No acute fracture. Soft tissues: Unremarkable. IMPRESSION: Stable noncontrast CT brain. No acute intracranial abnormality.
[2024-01-02 19:30] VITALS: BP 122/85; PULSE 80; O2SAT 98
[2024-01-02 19:41] LABS: Lactate Venous 1.2 mmol/L (0.4-2.0); VBG Base Excess -2.4 mmol/L (-2.4-2.3); VBG HCO3 23.2 mmol/L (23-30); VBG Oxygen Saturation 61.7 % (50-70); VBG PCO2 42.7 mmol/L (35-51); VBG PH 7.35 mmol/L (7.31-7.41); VBG PO2 32.6 mmol/L (28-40); VBG Total CO2 24.5 mmol/L (23-27)
[2024-01-02 19:44] LABS: Chloride 107 mmol/L (98-107)
[2024-01-02 19:45] LABS: Albumin Level 4.8 g/dl (3.5-5.0); Potassium 3.8 mmoL/L (3.5-5.1); Sodium 139 mmol/L (136-145)
[2024-01-02 19:47] LABS: Blood Urea Nitrogen 13 mg/dl (7-17); Creatinine Clearance Estimated 210 mL/min (50-200); Estimated Glomerular Filt Rate 119 ml/min (>60); GFR (African American) 144 ML/MIN (>60)
[2024-01-02 19:48] LABS: Alanine Aminotransferase 22 U/L (12-78); Albumin/Globulin Ratio 1.5 (1.1-1.8); Alkaline Phosphatase 92 U/L (38-126); Anion Gap 9.8 mEq/L (5-15); Aspartate Amino Transferase 35 U/L (14-36); Bilirubin,Total 0.6 mg/dl (0.2-1.3); Calcium 9.3 mg/dl (8.4-10.2); Carbon Dioxide 26 mmol/L (22.0-30.0); Globulin 3.3 g/dL (1.3-3.2); Glucose 87 mg/dl (74-100); Magnesium 1.9 mg/dl (1.6-2.3); Total Protein,Serum 8.1 g/dl (6.3-8.2)
[2024-01-02] MEDS: 0.9 % SODIUM CHLORIDE 1000ML 1,000 ML 999 ML IV (19:49)
[2024-01-02 19:52] LABS: Lactic Acid 0.8 mmol/L (0.7-2.1)
[2024-01-02 19:54] LABS: Basophils # 0.1 K/mm3 (0-0.2); Basophils % 0.5 % (0.1-2.0); Eosinophils # 0.1 K/mm3 (0.0-0.4); Eosinophils % 0.6 % (0.1-12.0); Hematocrit 47.6 % (37.0-47.0); Lymphocytes # 2.3 K/mm3 (0.7-4.5); Lymphocytes % 19.4 % (10-50); Mean Corpuscular HGB Conc 31.6 g/dL (31.8-35.4); Mean Corpuscular Hemoglobin 31.9 pg (27.0-31.2); Mean Platelet Volume 9.1 fl (7.4-10.4); Monocytes # 0.6 K/mm3 (0.1-1.0); Neutrophils # 8.8 K/mm3 (1.8-7.8); Neutrophils % 74.6 % (37.0-80.0); Platelet Count 478 K/mm3 (142-424); Red Blood Count 4.71 M/mm3 (4.20-5.40); Red Cell Distribution Width 13.9 % (11.5-17.5); White Blood Count 11.8 K/mm3 (4.8-10.8)
[2024-01-02 19:55] LABS: Ethyl Alcohol < 10 mg/dl (0-10)
[2024-01-02 19:56] LABS: Acetaminophen < 10 ug/ml (10-30); Salicylate < 1.0 mg/dL (2.0-20.0)
[2024-01-02 20:04] LABS: Troponin I < 0.01 ng/ml (0.00-0.034)
[2024-01-02] MEDS: MAGNESIUM SULFATE IN WATER 2 GM/50 ML PIGGYBACK IV (20:04)
[2024-01-02 20:05] LABS: T4 (Thyroxine) 9.6 ug/dl (5.53-11.0)
[2024-01-02 20:10] VITALS: BP 140/85; PULSE 80; O2SAT 100
[2024-01-02 20:19] LABS: Thyroid Stimulating Hormone 2.09 uIU/mL (0.465-4.68)
[2024-01-02 20:51] VITALS: BP 165/72; PULSE 78; RESP 16; TEMP 36.8; O2SAT 99
[2024-01-02 20:56] LABS: HIV (1&2) Antibody Rapid NONREACTIVE (NONREACTIVE)
[2024-01-04 07:13] LABS: HCV Ab Non Reactive (Non Reactive)
== END 2024-01-02 20:56 | disposition home or self-care (01) ==
PROVIDERS: Emergency Provider Emergency Medicine; PCP Internal Medicine
DX: R56.9 Unspecified convulsions (principal)
CPT/HCPCS: 70450; 71045; 80050; 80053; 80320; 80329; 82803; 83605; 83735; 84436; 84443; 84484; 85025; 86803; 87389; 93005; 96365; 99285; G0480; J3475; J7030

== ENCOUNTER 2024-01-11 20:39 | Emergency (ER) | payer SELFPAY ==
[2024-01-11 20:40] VITALS: BP 141/107; PULSE 82; RESP 16; TEMP 36.8; O2SAT 99; BMI 32.8
[2024-01-11] MEDS: TETRACAINE 0.5% OPTH SOL 15ML OP (21:02)
--- NOTE | 2024-01-11 21:02 | ED_ITS ---
Discharge Plan Disposition Patient Disposition: Home, Self-Care Referrals Follow up/Referrals: Ankur Colindres DO [Primary Care Provider] - See instructions Activity Restrictions/Add. Instructions Additional Instructions/Restrictions: Please instill 2 drops every 4 hours for 7 days of the topical antibiotic solution that was given to you. Return with any significant worsening of your symptoms. Clinical Impressions Clinical Impression: Corneal abrasion Print Language Print Language: Georgian Discharge ED Provider: Estrada Bear General Adult HPI General Chief complaint: Eye Problems Stated complaint: FB in RT eye Time Seen by Provider: 01/11/24 20:45 Mode of Arrival: Ambulatory Source of Information: Patient Limitations: No Limitations Description of Symptoms (Recalled from ER Triage Doc. by RN): approximately 1 hour ago the patient was outside when she felt something blow in her right eye. she attempted to flush her eye with water but did not feel relief. History of Present Illness HPI narrative: Patient is a 28-year-old female presented today with right eye foreign body sensation. She was outside and she felt something blow into her eye attempted to flush it out but had a persistent foreign body sensation. She has actually had 2 corneal abrasions in the past and states this feels similar. No visual loss or any other definitive foreign body that she is aware of. Related Data Allergies Allergy/AdvReac Type Severity Reaction Status Date / Time No Known Drug Allergies Allergy Unknown Verified 12/13/22 09:13 [NKDA] [facility] Disclaimer: The information contained in this section may have been updated after the patient was seen, as this information can be updated by other users. 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 Asthma Back pain Cervicalgia LLQ abdominal pain Surgical History History of section Social History Smoking Status: Current every day smoker tobacco type: smokeless tobacco alcohol intake: never substance use type: denies use current occupational status: other Travel in the last 8 weeks: None household members: children housing: apartment Other 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 Have you received the Flu Vaccine for this season: Yes Have you received the Pneumonia Vaccine: No ROS Obtained: Yes All systems reviewed & no additional complaints except as documented Physical Exam General General appearance: alert Eye Eye exam: Present normal appearance, PERRL and other (Lids everted no obvious foreign body noted with fluorescein stain and Mae lamp no significant fluorescein uptake however she did have complete resolution of symptoms with tetracaine); Absent conjunctival redness, conjunctival injection or discharge Respiratory Respiratory exam: Present normal lung sounds bilaterally Cardiovascular Cardiovascular exam: Present regular rate Neurological Exam Neurological exam: Present alert and oriented X3 Medical Decision Making Medical Records Screening: Per USPSTF and CDC recommendations, given the prevalence of disease in our region, it is our hospital?s policy to screen for HIV and viral Hepatitis for all patients aged 18 and over and those with ongoing risk factors. Babar Inquiry Pt receiving controlled substance: No Vital Signs: 01/11/24 20:40 Temperature 98.2 F Temperature Source Oral Pulse Rate [Right] 82 Respiratory Rate 16 Blood Pressure [Right Arm] 141/107 H Blood Pressure Mean [Right Arm] 118 02 Sat by Pulse Oximetry 99 Oxygen Delivery Method Room Air Orders (Tests/Meds): ED MEDICATIONS Generic Name Dose Route Start Last Admin Trade Name Freq PRN Reason Stop Dose Admin Fluorescein Sodium 1 mg 01/11/24 20:59 Fluorescein Sodium 1mg Strip OP 01/11/24 21:00 ONCE ONE Neomycin/Polymyxin/Gramicidin 1 ml 01/12/24 21:01 [id number]-[id number]-Zjcl Ophth Soln 10ml Bottle OP 01/12/24 21:02 PC ONE Tetracaine HCl 1 ml 01/11/24 20:58 Tetracaine 0.5% Opth Bernie 15ml OP 01/11/24 20:59 ONCE ONE Medical Decision Narrative: 20-year-old female with normal eye exam including fluorescein and Mae lamp exam. She has a foreign body sensation but no definitive foreign body on thorough examination including lid eversion. Her symptoms are consistent with a very mild superficial corneal epithelial injury likely caused by something that she was able to flush out. She had complete resolution with tetracaine which is diagnostic as well. No evidence of any type of corneal ulceration or any other significant eye injury or definitive foreign body. She was given topical antibiotic drops from the emergency department emergent precautions emphasized was discharged in stable condition Critical Care Critical Care Time Critical Care Time: No
[2024-01-11] MEDS: FLUORESCEIN SODIUM 1MG STRIP 1 MG OP (21:04)
[2024-01-11] MEDS: NEOMYCIN-POLYMY-GRAM OPHTH SOLN 10ML BOTTLE OP (21:04)
[2024-01-11 21:05] VITALS: BP 132/88; PULSE 80; RESP 18; TEMP 36.8; O2SAT 99
== END 2024-01-11 21:06 | disposition home or self-care (01) ==
PROVIDERS: Emergency Provider Student in an Organized Health Care Education/Training Program; PCP Internal Medicine
DX: S05.00XA Injury of conjunctiva and corneal abrasion without foreign body, unspecified eye, initial encounter (principal); X58.XXXA Exposure to other specified factors, initial encounter
CPT/HCPCS: 99283

== ENCOUNTER 2024-02-25 09:46 | Emergency (ER) | payer SELFPAY ==
--- NOTE | 2024-02-25 09:50 | XR_ITS ---
PROCEDURE INFORMATION: Exam: XR Left Hand Exam date and time: 02/25/2024 9:55 AM Age: 28 years old Clinical indication: Pain; Hand; Left; Additional info: Injured thumb riding a mechanical bull TECHNIQUE: Imaging protocol: Radiologic exam of the left hand. Views: 3 or more views. COMPARISON: No relevant prior studies available. FINDINGS: Bones/joints: Normal. Soft tissues: Normal. IMPRESSION: No acute findings.
[2024-02-25 10:08] VITALS: BP 125/76; PULSE 71; RESP 18; TEMP 36.7; O2SAT 98; BMI 32.1
--- NOTE | 2024-02-25 10:51 | EXP.UTC ---
Discharge Plan Disposition Patient Disposition: Home, Self-Care Condition: Good Prescriptions Prescriptions: No Action No Known Home Medications Referrals Follow up/Referrals: Ankur Colindres DO [Primary Care Provider] - See instructions Activity Restrictions/Add. Instructions Additional Instructions/Restrictions: *RICE, Rest the extremity, Ice 15-20 minutes 3-4 times daily, Compress- wear the quinn wrap as discussed as much as possible to help reduce swelling and pain, Elevate the extremity when at rest *Finger splint is for support and help control swelling, use it except in the shower. Be sure that is not to tight but not to loose either*Elevate when resting *Ibuprofen 600-800mg every 6-8 hours as needed for pain an inflammation. If need something more can take Tylenol in between doses of Ibuprofen to help Immediately follow up with your family doctor for new or worsening of symptoms, or no noticeable improvement over the next 3-5 days Clinical Impressions Clinical Impression: Finger sprain Instructions Patient Instructions: How To Perform RICE (Rest, Ice, Compress, Elevate), Ibuprofen Print Language Print Language: [place] Islander Discharge ED Provider: Anne Marie Robertson [facility] General Stated complaint: Pain and swelling in L thumb Mode of Arrival: Ambulatory Source of Information: Patient Time Seen by Provider: 02/25/24 10:51 Description of Symptoms (Recalled from Triage Doc. by RN): PAIN IN LEFT THUMB , ? DISLOCATION ? SPRAIN HEENT Symptoms (Recalled from RN notes): No Resp Symptoms (Recalled from RN notes): No Skin Symptoms (Recalled from RN notes): No MS Symptoms (Recalled from RN notes): Yes Functional Status (Recalled from RN notes): WNL History of Present Illness Provider Complaint: Patient states that she was riding a mechanical bull and hurt her left thumb States that it has been sore, bruised and swollen so today she came in to get it checked Related Data Home Medications ?Medication ?Instructions ?Recorded ?Confirmed No Known Home Medications 02/25/24 02/25/24 Allergies Allergy/AdvReac Type Severity Reaction Status Date / Time No Known Drug Allergies Allergy Unknown Verified 12/13/22 09:13 (NKDA) Worker's Comp Is this a Worker's Comp case?: No [facility] Disclaimer: The information contained in this section may have been updated after the patient was seen, as this information can be updated by other users. 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 Asthma Back pain Cervicalgia LLQ abdominal pain Surgical History History of section Social History Smoking Status: Current every day smoker tobacco type: smokeless tobacco alcohol intake: never substance use type: denies use current occupational status: other Travel in the last 8 weeks: None household members: children housing: apartment ROS Obtained: Yes All systems reviewed & no additional complaints except as documented and Yes Systems reviewed as appropriate & no additional complaints except as documented Constitutional Constitutional: Reports system reviewed and no additional complaints, except as documented and Reports as per HPI ENT Ears, Nose, Mouth, and Throat: Reports system reviewed and no additional complaints, except as documented and Reports as per HPI Cardiovascular Cardiovascular: Reports system reviewed and no additional complaints, except as documented and Reports as per HPI Respiratory Respiratory: Reports system reviewed and no additional complaints, except as documented and Reports as per HPI Gastrointestinal Gastrointestingal: Reports system reviewed and no additional complaints, except as documented and as per HPI Musculoskeletal Musculoskeletal: Reports system reviewed and no additional complaints, except as documented, Reports as per HPI and Reports other (pain and swelling in left thumb) Physical Exam General General appearance: alert and in no apparent distress ENT ENT exam: Present mucous membranes moist Chest Chest inspection: Present normal inspection; Absent symmetric chest wall rise or tenderness Respiratory Respiratory exam: Present normal lung sounds bilaterally; Absent respiratory distress or wheezes Cardiovascular Cardiovascular exam: Present regular rate, normal rhythm and normal heart sounds Expanded Upper Extremity Exam Left: Hand exam: Present tenderness and swelling Hand L/R front image: 1. other (tenderness mild swelling) Neurological Exam Neurological exam: Present alert, oriented X3 and normal gait Medical Decision Making Medical Records Screening: Per USPSTF and CDC recommendations, given the prevalence of disease in our region, it is our hospital?s policy to screen for HIV and viral Hepatitis for all patients aged 18 and over and those with ongoing risk factors. Babar Inquiry Pt receiving controlled substance: No Babar was queried for this patient: No Vital Signs: 02/25/24 10:08 Temperature 98.1 F Temperature Source Oral Pulse Rate [Left Radial] 71 Respiratory Rate 18 Blood Pressure [Left Arm] 125/76 Blood Pressure Mean [Left Arm] 92 02 Sat by Pulse Oximetry 98 Orders (Tests/Meds): ORDERS Category Date Time Status XR hand LT min 3V Stat Exams 02/25/24 09:50 Completed Radiology Data #1: Image(s): Hand Image Reviewed: Yes I have reviewed radiologist's interpretation IMPRESSION: No acute findings.
[2024-02-25 10:57] VITALS: BP 125/76; PULSE 71; RESP 18; TEMP 36.7
== END 2024-02-25 11:03 | disposition home or self-care (01) ==
PROVIDERS: Emergency Provider Nurse Practitioner; PCP Internal Medicine
DX: S63.602A Unspecified sprain of left thumb, initial encounter (principal); X50.0XXA Overexertion from strenuous movement or load, initial encounter
CPT/HCPCS: 73130; 99213; G0381

== ENCOUNTER 2024-02-29 14:04 | Emergency (ER) | payer SELFPAY ==
[2024-02-29 14:32] VITALS: BP 128/75; PULSE 77; RESP 18; TEMP 36.7; O2SAT 98; BMI 33.5
--- NOTE | 2024-02-29 14:33 | EXP.UTC ---
Discharge Plan Disposition Patient Disposition: Home, Self-Care Condition: Good Prescriptions Prescriptions: New amoxicillin 875 mg tablet 875 mg PO Q12H Qty: 20 0RF fluticasone propionate [Flonase Allergy Relief] 50 mcg/actuation spray,suspension 2 spray intranasal DAILY Qty: 16 0RF Rx Instructions: administer into each nostril daily Referrals Follow up/Referrals: Ankur Colindres DO [Primary Care Provider] - See instructions Activity Restrictions/Add. Instructions Additional Instructions/Restrictions: *Monitor Temp, Over the counter Motrin or Tylenol as directed/as needed Tylenol every 4 hours and Motrin every 6 hours (as long as your family doctor has told you that you can take it) for fever or pain. and straight to ER if unable to lower temp less than 101.0 after medication given *Warm salt water gargles may help to soothe the throat *Throat Lozenges? *Warm fluids like tea with honey may help to soothe the throat? *Sleep elevated *Humidifier/Vaporizer Your throat swab was sent for culture. Those results are typically sent to your primary care. Be sure to follow up in 2-3 days with your family doctor/primary care physician if no improvement so they can review those result and treat if necessary. If you don?t have a primary care doctor, I recommend you get one but in the mean time, you will have to return to a walk in clinic Follow up IMMEDIATELY for new or worsening symptoms or no Noticeable improvement over the next 48-72 hours. 911 for difficulty breathing or swallowing Clinical Impressions Clinical Impression: Strep throat Instructions Patient Instructions: DI for Strep Throat, Strep Throat Print Language Print Language: Lithuanian Discharge ED Provider: Anne Marie Robertson [facility] [place] HPI General Stated complaint: sore throat, congestion Mode of Arrival: Ambulatory Source of Information: Patient Time Seen by Provider: 02/29/24 14:33 Description of Symptoms (Recalled from Triage Doc. by RN): SORE THROAT, LIGHTHEADED HEENT Symptoms (Recalled from RN notes): Yes Resp Symptoms (Recalled from RN notes): No Skin Symptoms (Recalled from RN notes): No MS Symptoms (Recalled from RN notes): No Functional Status (Recalled from RN notes): WNL History of Present Illness Provider Complaint: Patient states that she has been having sore throat and feeling woozy at times like she may have fluid in her ears States today her throat was still bothering her so she came in to get checked Related Data Previous Rx's ?Medication ?Instructions ?Recorded amoxicillin 875 mg tablet 875 mg PO Q12H #20 tabs 02/29/24 fluticasone propionate 50 2 spray intranasal DAILY #16 grams 02/29/24 mcg/actuation nasal spray,suspension (Flonase Allergy Relief) Allergies Allergy/AdvReac Type Severity Reaction Status Date / Time No Known Drug Allergies Allergy Unknown Verified 12/13/22 09:13 (NKDA) Worker's Comp Is this a Worker's Comp case?: No [facility] Disclaimer: The information contained in this section may have been updated after the patient was seen, as this information can be updated by other users. 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 Asthma Back pain Cervicalgia LLQ abdominal pain Surgical History History of section Social History Smoking Status: Current every day smoker tobacco type: smokeless tobacco alcohol intake: never substance use type: denies use current occupational status: other household members: children housing: apartment ROS Obtained: Yes All systems reviewed & no additional complaints except as documented and Yes Systems reviewed as appropriate & no additional complaints except as documented Constitutional Constitutional: Reports system reviewed and no additional complaints, except as documented and Reports as per HPI ENT Ears, Nose, Mouth, and Throat: Reports system reviewed and no additional complaints, except as documented, Reports as per HPI, Reports otalgia (ear fullness) and Reports sore throat Cardiovascular Cardiovascular: Reports system reviewed and no additional complaints, except as documented and Reports as per HPI Respiratory Respiratory: Reports system reviewed and no additional complaints, except as documented and Reports as per HPI Gastrointestinal Gastrointestingal: Reports system reviewed and no additional complaints, except as documented and as per HPI Physical Exam General General appearance: alert and in no apparent distress ENT ENT exam: Present mucous membranes moist Expanded ENT Exam TM/Canal exam: Bilateral TM: bulging (clear fluid no redness) Nose exam: Absent sinus tenderness Throat exam: Present tonsillar erythema; Absent tonsillomegaly or tonsillar exudate Respiratory Respiratory exam: Present normal lung sounds bilaterally; Absent respiratory distress or wheezes Cardiovascular Cardiovascular exam: Present regular rate, normal rhythm and normal heart sounds Abdominal Exam Abdominal exam: Present soft and normal bowel sounds; Absent distention or tenderness Neurological Exam Neurological exam: Present alert, oriented X3 and normal gait Medical Decision Making Medical Records Screening: Per USPSTF and CDC recommendations, given the prevalence of disease in our region, it is our hospital?s policy to screen for HIV and viral Hepatitis for all patients aged 18 and over and those with ongoing risk factors. Babar Inquiry Pt receiving controlled substance: No Babar was queried for this patient: No Vital Signs: 02/29/24 14:32 Temperature 98.0 F Temperature Source Oral Pulse Rate [Left Radial] 77 Respiratory Rate 18 Blood Pressure [Left Arm] 128/75 Blood Pressure Mean [Left Arm] 92 02 Sat by Pulse Oximetry 98 Lab Data Lab results reviewed: Yes I reviewed the patient's lab results.
[2024-02-29 14:44] LABS: UTC Strep Screen (Rapid) Positive (Negative)
[2024-02-29 14:46] VITALS: BP 128/75; PULSE 77; RESP 18; TEMP 36.7
== END 2024-02-29 14:47 | disposition home or self-care (01) ==
PROVIDERS: Emergency Provider Nurse Practitioner; PCP Internal Medicine
DX: J02.0 Streptococcal pharyngitis (principal); R42 Dizziness and giddiness; H92.09 Otalgia, unspecified ear
CPT/HCPCS: 87880; 99212; G0381

== ENCOUNTER 2024-04-02 00:28 | Emergency (ER) | payer SELFPAY ==
[2024-04-02] VITALS (22 sets, daily range): BP systolic 126–158; BP diastolic 80–121; PULSE 80–119; RESP 10–26; TEMP 36.7–36.9; O2SAT 92–100; BMI 34.4
--- NOTE | 2024-04-02 00:54 | XR_ITS ---
PROCEDURE INFORMATION: Exam: XR Left Humerus Exam date and time: 04/02/2024 1:35 AM Age: 28 years old Clinical indication: Injury or trauma; Fall; Other: Pain; Additional info: Fall pain deformity at elbow TECHNIQUE: Imaging protocol: Radiologic exam of the left humerus. Views: 2 or more views. COMPARISON: CR XR ELBOW LT 2V 04/02/2024 1:35 AM FINDINGS: Bones/joints: Displaced fracture radial head/neck. Posterior dislocation of radius with respect to capitellum, olecranon with respect to trochlea. Soft tissues: Soft tissue swelling. IMPRESSION: Fracture/dislocation.
--- NOTE | 2024-04-02 00:54 | XR_ITS ---
PROCEDURE INFORMATION: Exam: XR Left Forearm Exam date and time: 04/02/2024 1:35 AM Age: 28 years old Clinical indication: Injury or trauma; Fall; Other: Pain; Additional info: Fall pain deformity at elbow TECHNIQUE: Imaging protocol: Radiologic exam of the left forearm. Views: 2 views. COMPARISON: CR XR HAND LT MIN 3V 02/25/2024 9:55 AM FINDINGS: Bones/joints: Displaced fracture radial head/neck. Posterior dislocation of radius with respect to capitellum, olecranon with respect to trochlea. Small fracture fragments about proximal radius. Joint effusion. Soft tissues: Soft tissue swelling. IMPRESSION: Fracture/dislocation.
--- NOTE | 2024-04-02 00:54 | XR_ITS ---
PROCEDURE INFORMATION: Exam: XR Left Elbow Exam date and time: 04/02/2024 1:35 AM Age: 28 years old Clinical indication: Injury or trauma; Fall; Other: Pain; Additional info: Fall pain deformity at elbow TECHNIQUE: Imaging protocol: Radiologic exam of the left elbow. Views: 1 or 2 views. COMPARISON: No relevant prior studies available. FINDINGS: Bones/joints: Displaced fracture radial head/neck. Posterior dislocation of radius with respect to capitellum, olecranon with respect to trochlea. Small fracture fragments about distal humerus and proximal radius. Joint effusion. Soft tissues: Soft tissue swelling. IMPRESSION: Fracture/dislocation.
[2024-04-02] MEDS: ACETAMINOPHEN 500MG TAB 1000 MG PO (01:00)
[2024-04-02] MEDS: OXYCODONE 5MG IMMEDIATE RELEASE TABLET 5 MG PO (01:00)
[2024-04-02] MEDS: KETOROLAC 30MG/ML VIAL 30 MG IM (01:01)
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
[2024-04-02 02:22] LABS: Urine Pregnancy, HCG Qual. Negative (Negative)
--- NOTE | 2024-04-02 02:27 | XR_ITS ---
PROCEDURE INFORMATION: Exam: XR Left Elbow Exam date and time: 04/02/2024 2:34 AM Age: 28 years old Clinical indication: Injury or trauma; Fall; Other: Pain; Additional info: Reduction TECHNIQUE: Imaging protocol: Radiologic exam of the left elbow. Views: 1 or 2 views. COMPARISON: CR XR ELBOW LT 2V 04/02/2024 1:35 AM FINDINGS: Bones/joints: Displaced, impacted fracture radial head/neck. Few tiny fracture fragments along proximal ulna. Large fracture fragment along proximal radius. No dislocation. Joint effusion. Soft tissues: Soft tissue swelling. IMPRESSION: Interval reduction.
[2024-04-02] MEDS: PROPOFOL 10MG/ML 20ML VIAL 100 MG IV (02:30)
--- NOTE | 2024-04-02 03:00 | XR_ITS ---
PROCEDURE INFORMATION: Exam: XR Left Elbow Exam date and time: 04/02/2024 3:13 AM Age: 28 years old Clinical indication: Injury or trauma; Fall; Other: Pain; Additional info: Reduction splint TECHNIQUE: Imaging protocol: Radiologic exam of the left elbow. Views: 1 view. COMPARISON: CR XR ELBOW LT 2V 04/02/2024 2:34 AM FINDINGS: Limitations: Imaged through splint, limiting evaluation of fine bony detail. Bones/joints: Displaced, rotated fracture radial head. No dislocation. Joint effusion. Soft tissues: Soft tissue swelling. IMPRESSION: Fractures as above.
--- NOTE | 2024-04-02 03:29 | PC.NURSE ---
Vitals 0235 BP-140/88 P-84 Sao2-100% R-16, 0240 bp-158/112 P-112 Sao2-100%, 0245 BP-147/83 P-94 Sao2 97%, 0250 BP-156/80 R-16 P-113 Sao2 99%, 0255 BP-128/104 P-100 R-16 Sao2 100%, 0300 BP-153/96 P-117 R-16 Sao2 96%, 0305 BP-141/90 P-98 Sao2 99%, 0315 BP-146/89 P-96 Sao2 99%
--- NOTE | 2024-04-02 03:33 | PC.NURSE ---
Pt awake alert and oriented at this time. Plaster splint in place and sling and swath also applied. Post reduction films complete. 0230 Dr Chen performed closed reduction of dislocated left elbow followed by splinting. MD gave sedation meds IV. REspiratory, RN and MD at bedside for procedure
[2024-04-02] MEDS: ONDANSETRON 4MG/2ML VIAL 4 MG IV (03:44)
[2024-04-02] MEDS: MIDAZOLAM 2MG/2ML VIAL 2 MG IV (03:44)
[2024-04-02] MEDS: KETAMINE 50MG/1ML SYRINGE 150 MG IM (03:46)
--- NOTE | 2024-04-02 03:47 | PC.NURSE ---
[facility] paged for consult
--- NOTE | 2024-04-02 03:58 | CT_ITS ---
PROCEDURE INFORMATION: Exam: CT Left Upper Extremity Without Contrast, Elbow Exam date and time: 04/02/2024 4:24 AM Age: 28 years old Clinical indication: Injury or trauma; Fall; Other: Fracture/dislocation; Additional info: Evaluate fx/dislocation TECHNIQUE: Imaging protocol: Computed tomography of the left upper extremity without contrast. Exam focused on the elbow. Radiation optimization: All CT scans at this facility use at least one of these dose optimization techniques: automated exposure control; mA and/or kV adjustment per patient size (includes targeted exams where dose is matched to clinical indication); or iterative reconstruction. COMPARISON: CR XR ELBOW LT 2V 04/02/2024 3:13 AM FINDINGS: Bones/joints: Comminuted, intra-articular fracture radial head. Displaced, rotated fracture fragment of radial head. Comminuted fracture posterior aspect of capitellum. Nondisplaced fracture coronoid process of ulna. No dislocation. Tiny intraarticular fracture fragments. Joint effusion. Soft tissues: Soft tissue swelling/stranding. IMPRESSION: Fractures as above.
--- NOTE | 2024-04-02 04:03 | PC.NURSE ---
Gave Transfer Center pt demografics to set up orthoped referral/consult
--- NOTE | 2024-04-02 04:27 | PC.NURSE ---
Pt in CT scan
--- NOTE | 2024-04-02 04:45 | PC.NURSE ---
called radiology and re-power shared Elbow CT to [facility]. [facility] called and updated on ct results. awaiting for [facility] to review images and call us back
== END 2024-04-02 05:36 | disposition home or self-care (01) ==
PROVIDERS: Emergency Provider Emergency Medicine
DX: S52.122A Displaced fracture of head of left radius, initial encounter for closed fracture (principal); S53.105A Unspecified dislocation of left ulnohumeral joint, initial encounter; M25.522 Pain in left elbow; R20.2 Paresthesia of skin; W19.XXXA Unspecified fall, initial encounter; Y93.9 Activity, unspecified; Y92.9 Unspecified place or not applicable
CPT/HCPCS: 24620; 73060; 73070; 73090; 73200; 81025; 96374; 96375; 99152; 99153; 99285; J1885; J2250; J2405

== ENCOUNTER 2024-04-03 23:47 | Emergency (ER) | payer SELFPAY ==
[2024-04-03 23:56] VITALS: BP 151/104; PULSE 87; RESP 16; TEMP 37.3; O2SAT 99; BMI 34.4
[2024-04-04 00:41] LABS: Eosinophils % 0.2 % (0.1-12.0); Hemoglobin 11.9 g/dL (12.2-16.2); Lymphocytes % 21.6 % (10-50); Mean Corpuscular Hemoglobin 31.9 pg (27.0-31.2); Mean Corpuscular Volume 93.8 fl (81-99); Mean Platelet Volume 10.4 fl (7.4-10.4); Monocytes % 10.3 % (1.7-9.3); Neutrophils % 67.3 % (37.0-80.0); Platelet Count 423 K/mm3 (142-424); Red Blood Count 3.73 M/mm3 (4.20-5.40); Red Cell Distribution Width 12.8 % (11.5-17.5); White Blood Count 10.6 K/mm3 (4.8-10.8)
[2024-04-04 00:42] LABS: Basophils % 0.3 % (0.1-2.0); Lymphocytes # 2.3 K/mm3 (0.7-4.5); Monocytes # 1.1 K/mm3 (0.1-1.0); Neutrophils # 7.1 K/mm3 (1.8-7.8)
[2024-04-04 00:49] LABS: Alanine Aminotransferase 27 U/L (12-78); Albumin Level 4.3 g/dl (3.5-5.0); Albumin/Globulin Ratio 1.7 (1.1-1.8); Alkaline Phosphatase 60 U/L (38-126); Aspartate Amino Transferase 64 U/L (14-36); Bilirubin,Total 0.6 mg/dl (0.2-1.3); Blood Urea Nitrogen 5 mg/dl (7-17); Calcium 9.3 mg/dl (8.4-10.2); Carbon Dioxide 27 mmol/L (22.0-30.0); Chloride 102 mmol/L (98-107); Creatinine Clearance Estimated 220 mL/min (50-200); Estimated Glomerular Filt Rate 119 ml/min (>60); GFR (African American) 144 ML/MIN (>60); Globulin 2.5 g/dL (1.3-3.2); Glucose 97 mg/dl (74-100); Sodium 140 mmol/L (136-145); Total Protein,Serum 6.8 g/dl (6.3-8.2)
[2024-04-04 00:53] LABS: D-Dimer 1.86 ug/mL (0.0-0.5)
--- NOTE | 2024-04-04 01:20 | XR_ITS ---
PROCEDURE INFORMATION: Exam: XR Left Elbow Exam date and time: 04/04/2024 1:48 AM Age: 28 years old Clinical indication: Injury or trauma; Fall; Blunt trauma (contusions or hematomas); Elbow; Left; Additional info: Lateral only TECHNIQUE: Imaging protocol: Radiologic exam of the left elbow. Views: 1 or 2 views. COMPARISON: CT ELBOW LT WO CON 04/02/2024 4:24 AM FINDINGS: Bones/joints: Complex fracture involving the capitellum and radial head again visualized. Overlying cast obscures fine bony detail. Soft tissues: Normal. IMPRESSION: Complex fracture involving the capitellum and radial head again visualized. Overlying cast obscures fine bony detail.
--- NOTE | 2024-04-04 01:36 | PC.NURSE ---
[facility] contacted re transfer to their facility, awaiting return call
[2024-04-04] MEDS: POTASSIUM CHLORIDE 20MEQ TAB 40 MEQ PO (02:10)
--- NOTE | 2024-04-04 02:17 | HMH.EDGENADL ---
Discharge Plan Disposition Patient Disposition: Xfer Short-Term Hosp Condition: Good Chief Complaint: Extremity Injury, Upper Prescriptions Prescriptions: No Action amoxicillin 875 mg tablet 875 mg PO Q12H Qty: 20 0RF fluticasone propionate [Flonase Allergy Relief] 50 mcg/actuation spray,suspension 2 spray intranasal DAILY Qty: 16 0RF Rx Instructions: administer into each nostril daily oxycodone 5 mg tablet 5 mg PO Q6H PRN (Reason: pain) Qty: 10 0RF Referrals Follow up/Referrals: Provider,Referral, MD [Primary Care Provider] - See instructions Clinical Impressions Clinical Impression: Dislocation of left elbow, Closed fracture of head of left radius, Paresthesia of left thumb Stand Alone Forms Stand Alone Forms: Transfer Record - ED Print Language Print Language: Fijian Discharge ED Provider: Silvia Chen General Adult HPI General Chief complaint: Extremity Injury, Upper Stated complaint: L elbow dislocation, upper arm swelling, bruising Time Seen by Provider: 04/04/24 00:07 Mode of Arrival: Ambulatory Source of Information: Patient Limitations: No Limitations Description of Symptoms (Recalled from ER Triage Doc. by RN): pt dislocated her L elbow on 04/01 and had is put back in here in the ED. pt presents with erythema, edema, and a hot rash proximal to her elbow above her acebandage. pt also reports her fingers are itching. pt denies pain. History of Present Illness HPI narrative: 28-year-old female presents to the ER with concerns of swelling and redness of the left upper extremity in the setting of recent fracture dislocation of the left elbow with reduction and splinting in the ER. Patient reports redness and swelling as well as a hot rash above her splint. She states her thumb is also continuing to be tingly though it is slightly improved from prior. She states the redness and swelling started today and have rapidly worsened. She states she has itching under the cast. She denies fevers, chills, chest pain, difficulty breathing, nausea, vomiting, diarrhea, or other associated symptoms. She states she does not have any other changes in the sensation of her fingers. She has no history of blood clot. Related Data Previous Rx's ?Medication ?Instructions ?Recorded amoxicillin 875 mg tablet 875 mg PO Q12H #20 tabs 02/29/24 fluticasone propionate 50 2 spray intranasal DAILY #16 grams 02/29/24 mcg/actuation nasal spray,suspension (Flonase Allergy Relief) oxycodone 5 mg tablet 5 mg PO Q6H PRN pain #10 tabs 04/02/24 Allergies Allergy/AdvReac Type Severity Reaction Status Date / Time No Known Drug Allergies Allergy Unknown Verified 12/13/22 09:13 (NKDA) [facility] Disclaimer: The information contained in this section may have been updated after the patient was seen, as this information can be updated by other users. 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 Asthma Back pain Cervicalgia LLQ abdominal pain Surgical History History of section Social History (Updated 02/29/24 @ 14:41 by Anne Marie Robertson APRN) Smoking Status: Current every day smoker tobacco type: smokeless tobacco alcohol intake: never substance use type: denies use current occupational status: other Travel in the last 8 weeks: None household members: children housing: apartment Other 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 Have you received the Flu Vaccine for this season: Yes Have you received the Pneumonia Vaccine: No ROS Obtained: Yes Systems reviewed as appropriate & no additional complaints except as documented Per HPI Physical Exam General General appearance: alert and in no apparent distress Head Head exam: atraumatic and normocephalic Eye Eye exam: Present PERRL and EOMI ENT ENT exam: Present mucous membranes moist Neck Neck exam: Present normal inspection and full ROM Chest Chest inspection: Present symmetric chest wall rise Respiratory Respiratory exam: Present normal lung sounds bilaterally; Absent respiratory distress, wheezes or stridor Cardiovascular Cardiovascular exam: Present regular rate and normal rhythm Abdominal Exam Abdominal exam: Present soft; Absent distention or tenderness Extremities Exam Extremities exam: Present normal capillary refill, edema (Mild edema of left upper extremity), joint swelling (1 splint was removed, there is still significant swelling of the left elbow with obvious tenderness) and other (Erythematous rash with induration proximal to the splint with obvious well-demarcated borders); Absent normal inspection (Left upper extremity splint in place, erythema with induration and obvious border proximal to the proximal edge of the splint on the proximal upper extremity. Bruising on the medial aspect of the left upper arm) or full ROM (No range of motion testing performed to the left elbow secondary to recent fracture dislocation) Neurological Exam Neurological exam: Present alert, oriented X3 and motor sensory deficit (Sensory deficit of the left thumb) Psychiatric Psychiatric exam: Present normal affect and normal mood Skin Skin exam: Present warm and dry Medical Decision Making Medical Records Screening: Per USPSTF and CDC recommendations, given the prevalence of disease in our region, it is our hospital?s policy to screen for HIV and viral Hepatitis for all patients aged 18 and over and those with ongoing risk factors. Babar Inquiry Pt receiving controlled substance: No Vital Signs: 04/03/24 23:56 Temperature 99.1 F Temperature Source Oral Pulse Rate [Left] 87 Respiratory Rate 16 Blood Pressure [Right Arm] 151/104 H Blood Pressure Mean [Right Arm] 119 Blood Pressure Source [Right Arm] Automatic Cuff Blood Pressure Position [Right Arm] Sitting 02 Sat by Pulse Oximetry 99 Oxygen Delivery Method Room Air Lab Data Lab Results 04/04/24 00:21: WBC 10.6, RBC 3.73 L, Hgb 11.9 L, Hct 35.0 L, MCV 93.8, MCH 31.9 H, MCHC 34.0, RDW 12.8, Plt Count 423, MPV 10.4, Neut % (Auto) 67.3, Lymph % (Auto) 21.6, [place] % (Auto) 10.3 H, Eos % (Auto) 0.2, Baso % (Auto) 0.3, Neut # (Auto) 7.1, Lymph # (Auto) 2.3, [place] # (Auto) 1.1 H, Eos # (Auto) 0.0, Baso # (Auto) 0.0, D-Dimer 1.86 H, Sodium 140, Potassium 3.0 L, Chloride 102, Carbon Dioxide 27, Anion Gap 14.0, BUN 5 L, Creatinine 0.60, Estimated Creat Clear 220, Estimated GFR 119, Est GFR ( Amer) 144, Glucose 97, Calcium 9.3, Total Bilirubin 0.6, AST 64 H, ALT 27, Alkaline Phosphatase 60, Total Protein 6.8, Albumin 4.3, Globulin 2.5, Albumin/Globulin Ratio 1.7 04/04/24 00:21 04/04/24 00:21 Orders (Tests/Meds): ED MEDICATIONS Discontinued Medications Generic Name Dose Route Start Last Admin Trade Name Freq PRN Reason Stop Dose Admin Potassium Chloride 40 meq 04/04/24 02:06 04/04/24 02:10 Potassium Chloride 20meq Tab PO 04/04/24 02:07 40 meq ONCE ONE Administration ORDERS Category Date Time Status POCUS Point of Care (ER Only) Stat Exams 04/04/24 00:07 Ordered XR elbow LT 2V Stat Exams 04/04/24 01:20 Taken CBC w/Auto Diff [Complete Blood Count Auto Diff] Stat Lab 04/04/24 00:21 Completed CMP [Comprehensive Metabolic Panel] Stat Lab 04/04/24 00:21 Completed D-Dimer Stat Lab 04/04/24 00:21 Completed Medical Decision Narrative: In summary, this 28-year-old female with recent fracture dislocation of the left elbow presents to the emergency department today with swelling, redness proximal but splint, persistent numbness of the thumb. On initial evaluation patient is hemodynamically stable, afebrile, there is induration, erythema, heat of a rash that does rupal proximal to the proximal edge of the splint on the left humerus. Well-demarcated border. Bruising on the medial aspect of the humerus as well as around the elbow which was visualized once splint was removed. 2+ pulses. Decreased sensation in the thumb though patient reports it is slightly improved than when she initially injured it. Differential diagnosis includes but is not limited to neurovascular injury, DVT, erysipelas, cellulitis, among others. Based on these concerns, I ordered basic serum labs, D-dimer, [id number] ultrasound. I personally performed and interpreted left upper extremity [id number] ultrasound for DVT evaluation. See procedure note for details. There is 1 deep brachial vein that I am concerned has poor compressibility concerning for DVT. Labs were reviewed and are notable for D-dimer elevated at 1.86 further concern for DVT. Unfortunately the quality of my ultrasound and these labs are concerning for DVT and I cannot rule it out but I am not confident ruling it in at this point either. I do not want to inappropriately start anticoagulation on this patient, and I believe she has other reasons to be evaluated by higher level of care given her persistent paresthesias. This in addition to patient having left thumb paresthesias persistently, I consulted for Ortho consult. I talked to Dr. Vines with the Ortho team. He reviewed the imaging of the patient's initial injury and we discussed her current labs and imaging findings. He recommended transfer to ER for further evaluation. I agree with this plan. Patient had been placed back on the splint by me. Post splint x-rays personally interpreted demonstrate that the left elbow is still in good position, radial head fragment persistently in the antecubital space. I marked the edges of the erythema so this can be monitored for expansion. Patient is appropriate for transfer via private vehicle. She is agreeable to being transferred. Patient was transferred by private vehicle in stable condition. Procedures Orthopedic Splinting/Casting Injury #1: Side: left Upper Extremity Injury Location: elbow Upper Extremity Immobilizer: posterior splint (Soft roll, Ortho-Glass, Homar wrap used for splint. Splint personally applied and adjusted by me) Post Cast/Splinting Neuro Status: no change Post Cast/Splinting Vasc Status: intact and no change Miscellaneous Procedure Procedure Performed: Limited DVT ultrasound Indication: Limited compression ultrasonography of the left upper extremity was performed to evaluate for non-compressibility of the deep veins in the patient. The ultrasound was performed with the following indications, as noted in the H&P: Left arm swelling and redness Identified structures: Left [Ulnar vein, radial vein, cephalic vein, basilic vein, axillary vein, brachial vein.] Findings: Upper extremity: Left UV good compressibility Left RV: Good compressibility Left Cephalic vein: Good compressibility Left Basilic vein: Good compressibility Left Axillary vein: Good compressibility Left brachial vein: Poor compressibility Impression: Concern for left upper extremity DVT with poor compressibility of brachial vein Images were saved to permanent archive The study was technically adequate CPT: 70063-53-CV 13678-14-DR 57930-16 (complete bilateral study) This study was performed by me, and I personally interpreted all images/videos. Based on my clinical judgement, these images were adequate and did not necessitate further imaging. Critical Care Critical Care Time Critical Care Time: No
--- NOTE | 2024-04-04 02:23 | PC.NURSE ---
Report called to Steph CHUNG at ED
[2024-04-04 02:31] VITALS: BP 150/96; PULSE 94; RESP 18; TEMP 36.8; O2SAT 99
== END 2024-04-04 02:34 | disposition short-term general hospital (02) ==
PROVIDERS: Emergency Provider Emergency Medicine
DX: R22.32 Localized swelling, mass and lump, left upper limb (principal); R21 Rash and other nonspecific skin eruption; S52.122A Displaced fracture of head of left radius, initial encounter for closed fracture; S53.105A Unspecified dislocation of left ulnohumeral joint, initial encounter; R20.2 Paresthesia of skin
CPT/HCPCS: 73070; 80053; 85025; 85378; 99283

== ENCOUNTER 2024-04-28 19:10 | Emergency (ER) | payer SELFPAY ==
[2024-04-28 19:11] VITALS: BP 167/117; PULSE 94; RESP 20; TEMP 36.9; O2SAT 98; BMI 34.4
--- NOTE | 2024-04-28 19:28 | ED_ITS ---
Discharge Plan Disposition Patient Disposition: Home, Self-Care Chief Complaint: PAIN Prescriptions Prescriptions: No Action amoxicillin 875 mg tablet 875 mg PO Q12H Qty: 20 0RF fluticasone propionate [Flonase Allergy Relief] 50 mcg/actuation spray,suspen jigar 2 spray intranasal DAILY Qty: 16 0RF Rx Instructions: administer into each nostril daily oxycodone 5 mg tablet 5 mg PO Q6H PRN (Reason: pain) Qty: 10 0RF Referrals Follow up/Referrals: Ankur Colindres DO [Primary Care Provider] - See instructions Activity Restrictions/Add. Instructions Additional Instructions/Restrictions: Call your family doctor to establish care for this visit to the emergency department and schedule follow-up within 48 hours to ensure improvement. If you have any worsening of your condition or any other concerning signs or symptoms, return to the emergency department or your primary care doctor for further evaluation. Maintain follow-up as scheduled on May 13. If you have fevers, vomiting, red streaking up your arm, purulent/pus drainage from the area, or any other concerns, return to the emergency department for further evaluation. Clinical Impressions Clinical Impression: Post-operative pain Print Language Print Language: Barbadian Discharge ED Provider: Dario Olivas General Adult HPI General Chief complaint: PAIN Stated complaint: left arm pain/burning/swelling post op Time Seen by Provider: 04/28/24 19:12 Mode of Arrival: Ambulatory Source of Information: Patient Limitations: No Limitations Description of Symptoms (Recalled from ER Triage Doc. by RN): Patient reports she had surgery on her left elbow on 04/24 at . Patient reports today pain has started to increase and feels some burning in her elbow that has been new. Patient reports she has been using ice compression and elevation of the limb. Patient reports her post op appointment is 05/13. History of Present Illness HPI narrative: Please note that above description of symptoms, in this electronic medical record under categorization of recalled from ER triage doctor by RN are reflective of an initial nursing assessment, however, is not reflective of my full history and physical exam that was personally taken and clarified. Consequentially, this preceding description of symptoms, which may include the patient's categorized chief complaint in the EMR, do not reflect my personal clinical impression, and the ultimate description of history of present illness and patient stated complaints should be deferred to this section of the note. Unless stated otherwise or congruent with this section of the note, additional signs, symptoms, or incongruence should be interpreted as inaccurate with my clinical impression. Related Data Previous Rx's ?Medication ?Instructions ?Recorded amoxicillin 875 mg tablet 875 mg PO Q12H #20 tabs 02/29/24 fluticasone propionate 50 2 spray intranasal DAILY #16 grams 02/29/24 mcg/actuation nasal spray,suspension (Flonase Allergy Relief) oxycodone 5 mg tablet 5 mg PO Q6H PRN pain #10 tabs 04/02/24 Allergies Allergy/AdvReac Type Severity Reaction Status Date / Time No Known Drug Allergies Allergy Unknown Verified 12/13/22 09:13 (NKDA) [facility] Disclaimer: The information contained in this section may have been updated after the patient was seen, as this information can be updated by other users. 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 Asthma Back pain Cervicalgia LLQ abdominal pain Surgical History History of section Social History (Updated 02/29/24 @ 14:41 by Anne Marie Robertson APRN) Smoking Status: Current every day smoker tobacco type: smokeless tobacco alcohol intake: never substance use type: denies use current occupational status: other Travel in the last 8 weeks: None household members: children housing: apartment Have you lived/traveled outside [place] in past 30 days?: No Contact w/someone who lives/traveled outside [place] past 30 days?: No Exposure to someone with infectious disease in past 14 days?: No Do you have a fever (greater than 100.4 F or 38 C)?: No Have you tested positive for COVID-19: No Exposed to someone with COVID-19 in past 14 days?: No Do you have a sore throat?: No Do you have a cough?: No Do you have any weakness?: No Do you have any diarrhea?: No Are you experiencing any unusual bleeding?: No Do you have any muscle aches/pain?: No Do you have any abdominal pain?: No Are you experiencing loss of taste or smell?: No Other 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 Have you received the Flu Vaccine for this season: Yes Have you received the Pneumonia Vaccine: No ROS Obtained: Yes All systems reviewed & no additional complaints except as documented Physical Exam General General appearance: alert Head Head exam: atraumatic and normocephalic Eye Eye exam: Present normal appearance, PERRL and EOMI Neck Neck exam: Present normal inspection, full ROM and trachea midline Respiratory Respiratory exam: Absent respiratory distress, wheezes, stridor, accessory muscle use or prolonged expiratory phase Cardiovascular Cardiovascular exam: Present other (Pulses equal symmetric in upper and lower extremities) Abdominal Exam Abdominal exam: Present soft; Absent distention, tenderness or pulsatile mass Extremities Exam Extremities exam: Present edema and other (Postoperative left upper extremity swelling. Neurovascularly intact. No purulent drainage, abnormalities grossly.) Neurological Exam Neurological exam: Present alert, oriented X3 and CN II-XII intact; Absent motor sensory deficit Skin Skin exam: Present warm and dry; Absent diaphoresis or erythema Medical Decision Making Medical Records Medical records reviewed: Yes I reviewed the patient's medical records. Screening: Per USPSTF and CDC recommendations, given the prevalence of disease in our region, it is our hospital?s policy to screen for HIV and viral Hepatitis for all patients aged 18 and over and those with ongoing risk factors. Babar Inquiry Pt receiving controlled substance: No Babar was queried for this patient: No Vital Signs: 04/28/24 19:11 Temperature 98.4 F Temperature Source Oral Pulse Rate [Right Brachial] 94 H Respiratory Rate 20 Blood Pressure [Right Arm] 167/117 H Blood Pressure Mean [Right Arm] 133 Blood Pressure Source [Right Arm] Automatic Cuff Blood Pressure Position [Right Arm] Supine 02 Sat by Pulse Oximetry 98 Oxygen Delivery Method Room Air Medical Decision Narrative: 28-year-old female presenting with postoperative pain. Patient states that she broke her elbow recently, had surgery a few days prior to this. States that she has follow-up on 05/13/2024, states that she started having burning on the lateral aspect of her left elbow today. States it is mild in intensity, made worse with movement. She has tried the ice water circulation and medication including opiate, tramadol, Tylenol and Motrin. States that this helps mildly. Came in for further evaluation, concern for infection. No systemic signs or symptoms. History obtained the patient. On arrival, she is very well-appearing. No lymphadenopathy in the left axilla, no red streaking, splint was partially cons tructed, no evidence of purulence of the cotton, no evidence of purulence or abnormalities about the elbow splint or cotton/dressing. Neurovascular intact. Compartments are soft. Patient states that after removing the Homar bandage, actually having significant improvement in the burning pain. Given this, patient has no concern for compartment syndrome, acute draining postoperative infection. Conversation had with patient regarding full deconstruction of splint and taking down cotton. Patient states she would prefer not to take the splint all the way down and risk ranging the elbow or interfering with postoperative changes, I feel this is appropriate given incredibly well- appearing patient with no systemic signs or symptoms. Because patient at baseline without signs or symptoms of clinical decompensation, deemed appropriate for discharge. Results were relayed to patient who voiced understanding and were agreeable to outpatient management and follow up. I discussed my clinical impression with patient and answered all questions. At this time, the evidence for any other entities in the differential is insufficient to warrant any further testing or ED observation. This was explai tania as well. Advisory was given that persistent or worsening symptoms require further evaluation. I confirmed the understanding of this discussion. Pathology Tech disclaimer Much of this encounter note is an electronic corrections corporal spoken language to printed text. Electronic corrections corporal of the spoken language may permit errors. Although I have reviewed the note, some errors may still exist. Critical Care Critical Care Time Critical Care Time: No
[2024-04-28 19:52] VITALS: BP 148/80; PULSE 90; RESP 18; TEMP 36.9; O2SAT 98
== END 2024-04-28 19:52 | disposition home or self-care (01) ==
PROVIDERS: Emergency Provider Emergency Medicine; PCP Internal Medicine
DX: G89.18 Other acute postprocedural pain (principal); M25.522 Pain in left elbow
CPT/HCPCS: 99282

== ENCOUNTER 2024-05-15 08:33 | Emergency (ER) | payer SELFPAY ==
[2024-05-15] VITALS (10 sets, daily range): BP systolic 100–135; BP diastolic 58–86; PULSE 68–97; RESP 16–18; TEMP 36.7–36.9; O2SAT 95–100; BMI 34.4
[2024-05-15 10:14] LABS: Apearance,Urine Cloudy (Clear); Color,Urine Yellow (Yellow)
[2024-05-15 10:15] LABS: Bilirubin,Urine Negative (Negative); Blood, Urine 3+ (Negative); Glucose,Urine (UA) Negative (Negative); Ketones,Urine Negative (Negative); Protein,Urine Negative (Negative); UTC Leukocyte Esterase,Urine 2+ (Negative); UTC Nitrate,Urine Positive (Negative); Urobilinogen,Urine 0.2 EU/dl (0.2)
--- NOTE | 2024-05-15 10:31 | EXP.UTC ---
Discharge Plan Disposition Patient Disposition: Still a Patient Prescriptions Prescriptions: No Action amoxicillin 875 mg tablet 875 mg PO Q12H Qty: 20 0RF fluticasone propionate [Flonase Allergy Relief] 50 mcg/actuation spray,suspension 2 spray intranasal DAILY Qty: 16 0RF Rx Instructions: administer into each nostril daily oxycodone 5 mg tablet 5 mg PO Q6H PRN (Reason: pain) Qty: 10 0RF Referrals Follow up/Referrals: Ankur Colindres DO [Primary Care Provider] - See instructions Instructions Patient Instructions: DI for Urinary Tract Infection (UTI), DI for Urinary Tract Infection in Children Print Language Print Language: Dutch Discharge ED Provider: Nate Peralta [facility] [place] Chief complaint: Urogenital-Female Stated complaint: Pain and frequent urination, pain in L side Mode of Arrival: Ambulatory Source of Information: Patient Limitations: No Limitations Time Seen by Provider: 05/15/24 10:31 Description of Symptoms (Recalled from Triage Doc. by RN): SHARP PAINS IN LOWER ABD. PAIN LEFT SIDE INTO BACK, PAIN DURING URINATION, LIGHT BLEEDING HEENT Symptoms (Recalled from RN notes): No Resp Symptoms (Recalled from RN notes): No Skin Symptoms (Recalled from RN notes): No MS Symptoms (Recalled from RN notes): No Functional Status (Recalled from RN notes): NA History of Present Illness Provider Complaint: Patient states that for the last couple days she thought she may be getting a UTI States that she was having urinary frequency and urgency States last night she started with pain in her left flank area around her left side to her left lower abdomen/pelvic area and noticed a couple times that when she wiped she had blood on the tissue, Denies fever, denies chills States that it is hard to get comfortable due to the pain in her left side Denies hx of kidney stones Related Data Previous Rx's ?Medication ?Instructions ?Recorded amoxicillin 875 mg tablet 875 mg PO Q12H #20 tabs 02/29/24 fluticasone propionate 50 2 spray intranasal DAILY #16 grams 02/29/24 mcg/actuation nasal spray,suspension (Flonase Allergy Relief) oxycodone 5 mg tablet 5 mg PO Q6H PRN pain #10 tabs 04/02/24 Allergies Allergy/AdvReac Type Severity Reaction Status Date / Time No Known Drug Allergies Allergy Unknown Verified 12/13/22 09:13 (NKDA) Worker's Comp Is this a Worker's Comp case?: No [facility] Disclaimer: The information contained in this section may have been updated after the patient was seen, as this information can be updated by other users. 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 Asthma Back pain Cervicalgia LLQ abdominal pain Surgical History History of section Social History (Updated 02/29/24 @ 14:41 by Anne Marie Robertson APRN) Smoking Status: Current every day smoker tobacco type: smokeless tobacco alcohol intake: never substance use type: denies use current occupational status: other Travel in the last 8 weeks: None household members: children housing: apartment Have you lived/traveled outside US in past 30 days?: No Contact w/someone who lives/traveled outside US past 30 days?: No Exposure to someone with infectious disease in past 14 days?: No Do you have a fever (greater than 100.4 F or 38 C)?: No Have you tested positive for COVID-19: No Exposed to someone with COVID-19 in past 14 days?: No Do you have a sore throat?: No Do you have a cough?: No Do you have any weakness?: No Do you have any diarrhea?: No Are you experiencing any unusual bleeding?: No Do you have any muscle aches/pain?: No Do you have any abdominal pain?: Yes Are you experiencing loss of taste or smell?: No ROS Obtained: Yes All systems reviewed & no additional complaints except as documented and Yes Systems reviewed as appropriate & no additional complaints except as documented Constitutional Constitutional: Reports system reviewed and no additional complaints, except as documented, Reports as per HPI, Denies body ache, Denies chills and Denies fever(s) ENT Ears, Nose, Mouth, and Throat: Reports system reviewed and no additional complaints, except as documented and Reports as per HPI Cardiovascular Cardiovascular: Reports system reviewed and no additional complaints, except as documented and Reports as per HPI Respiratory Respiratory: Reports system reviewed and no additional complaints, except as documented and Reports as per HPI Gastrointestinal Gastrointestingal: Reports system reviewed and no additional complaints, except as documented, as per HPI, abdominal pain (left lower abdomen/pelvic area pain) and nausea; Denies vomiting Genitourinary Female Genitourinary: Reports system reviewed and no additional complaints, except as documented, Reports as per HPI, Reports dysuria, Reports flank pain, Reports pelvic pain, Reports urinary frequency and Reports urinary urgency Musculoskeletal Musculoskeletal: Reports system reviewed and no additional complaints, except as documented and Reports as per HPI Integumentary/Breasts Skin/Breast: Reports system reviewed and no additional complaints, except as documented and Reports as per HPI Physical Exam General General appearance: alert and in no apparent distress Chest Chest inspection: Present normal inspection and symmetric chest wall rise Respiratory Respiratory exam: Present normal lung sounds bilaterally; Absent respiratory distress or wheezes Cardiovascular Cardiovascular exam: Present regular rate, normal rhythm and normal heart sounds Abdominal Exam Abdominal exam: Present tenderness (reports tenderness) and normal bowel sounds Back Exam Back exam: Present tenderness Back 1 view image: 1. patient reports tenderness and discomfort that radiates around left side into left lower abdomen/pelvic area started last night continued to get worse Denies loss of control of bowel or bladder Neurological Exam Neurological exam: Present alert, oriented X3 and normal gait Medical Decision Making Medical Records Screening: Per USPSTF and CDC recommendations, given the prevalence of disease in our region, it is our hospital?s policy to screen for HIV and viral Hepatitis for all patients aged 18 and over and those with ongoing risk factors. Babar Inquiry Pt receiving controlled substance: No Babar was queried for this patient: No Vital Signs: 05/15/24 10:01 05/15/24 10:27 Temperature 98.4 F 98.4 F Temperature Source Oral Oral Pulse Rate 97 H Pulse Rate [Left Radial] 97 H Respiratory Rate 18 18 Blood Pressure 135/85 Blood Pressure [Right Arm] 135/85 Blood Pressure Mean [Right Arm] 101 02 Sat by Pulse Oximetry 100 Lab Data Lab results reviewed: Yes I reviewed the patient's lab results. Lab Results 05/15/24 10:08: Urine Color Yellow, Urine Appearance Cloudy, Urine pH 6.0, Ur Specific [place] 1.010, Urine Protein Negative, Urine Glucose (UA) Negative, Urine Ketones Negative, Urine Blood 3+, Urine Nitrate Positive A, Urine Bilirubin Negative, Urine Urobilinogen 0.2, Ur Leukocyte Esterase 2+ A Orders (Tests/Meds): ORDERS Category Date Time Status Urine Culture Stat Micro 05/15/24 10:08 Received Medical Decision Narrative: Patient sitting on exam table in obvious discomfort, reports pain in left flank area radiating around left side into left lower abdomen/pelvic area Reports not had pain like this before with UTI Denies hx of kidney stones but states that she is having issues getting comfortable Discussed with patient and patient concerned with kidney stone since this is not her typical symptoms she has had with a UTI discussed with ED and will transfer to ED for further work up and evaluation
--- NOTE | 2024-05-15 10:44 | PC.NURSE ---
PT WALKED OVER TO ER FROM [facility] BY RN
--- NOTE | 2024-05-15 10:44 | PC.NURSE ---
REPORT CALLED TO A ALICIA RN, PATIENT WALKED TO ROOM 9 IN ER.
--- NOTE | 2024-05-15 11:02 | CT_ITS ---
FINAL REPORT TECHNIQUE: Axial images through the abdomen and pelvis were performed without contrast. This study was performed with techniques to keep radiation doses as low as reasonably achievable, (ALARA). Individualized dose reduction techniques using automated exposure control or adjustment of mA and/or kV according to the patient's size were employed. CLINICAL HISTORY: l flank pain, r/o stone COMPARISON: 07/30/2021 FINDINGS: Abdomen: The lung bases are clear. The liver parenchyma is homogeneous. The gallbladder is present. The spleen, pancreas, and adrenals are unremarkable. There are well-circumscribed low-attenuation structures in both kidneys, probably due to benign cysts. No kidney stones are identified. Pelvis: The urinary bladder is unremarkable. The uterus is present and lies in the midline. The appendix is unremarkable. Trace free fluid is identified. There are calcified phleboliths in the floor of the pelvis. IMPRESSION: Benign-appearing bilateral renal cysts. No evidence of nephrolithiasis. Reviewed, Interpreted and Dictated by Ángel Pineda MD Transcribed by Renetta Gallardo Authenticated and [facility]
[2024-05-15 11:07] LABS: Basophils % 0.2 % (0.1-2.0); Eosinophils % 0.1 % (0.1-12.0); Hematocrit 39.6 % (37.0-47.0); Hemoglobin 13.2 g/dL (12.2-16.2); Lymphocytes % 5.9 % (10-50); Mean Corpuscular HGB Conc 33.3 g/dL (31.8-35.4); Mean Corpuscular Hemoglobin 31.1 pg (27.0-31.2); Mean Corpuscular Volume 93.2 fl (81-99); Mean Platelet Volume 10.5 fl (7.4-10.4); Monocytes # 1.2 K/mm3 (0.1-1.0); Monocytes % 7.2 % (1.7-9.3); Neutrophils # 14.5 K/mm3 (1.8-7.8); Neutrophils % 86.2 % (37.0-80.0); Platelet Count 472 K/mm3 (142-424); Red Blood Count 4.25 M/mm3 (4.20-5.40); Red Cell Distribution Width 12.8 % (11.5-17.5); White Blood Count 16.9 K/mm3 (4.8-10.8)
[2024-05-15 11:10] LABS: Albumin Level 4.7 g/dl (3.5-5.0); Chloride 103 mmol/L (98-107)
[2024-05-15] MEDS: ONDANSETRON 4MG/2ML VIAL 4 MG IV (11:10)
[2024-05-15] MEDS: KETOROLAC 30MG/ML VIAL 15 MG IV (11:10)
[2024-05-15 11:11] LABS: Potassium 3.8 mmoL/L (3.5-5.1); Sodium 138 mmol/L (136-145)
[2024-05-15 11:13] LABS: Alanine Aminotransferase 15 U/L (12-78); Aspartate Amino Transferase 26 U/L (14-36); Blood Urea Nitrogen 7 mg/dl (7-17); Creatinine Clearance Estimated 264 mL/min (50-200); Estimated Glomerular Filt Rate 147 ml/min (>60); GFR (African American) 178 ML/MIN (>60)
[2024-05-15 11:14] LABS: Albumin/Globulin Ratio 1.6 (1.1-1.8); Alkaline Phosphatase 92 U/L (38-126); Anion Gap 12.8 mEq/L (5-15); Bilirubin,Total 0.9 mg/dl (0.2-1.3); Calcium 9.3 mg/dl (8.4-10.2); Carbon Dioxide 26 mmol/L (22.0-30.0); Glucose 102 mg/dl (74-100); Lipase 46 U/L (23-300); Total Protein,Serum 7.7 g/dl (6.3-8.2)
[2024-05-15 11:16] LABS: MANUAL DIFFERENTIAL MANUAL DIFFERENTIAL (MANUAL DIFF)
[2024-05-15 11:26] LABS: HCG Qualitative, Serum Negative (Negative)
[2024-05-15 11:32] LABS: Lymphocytes % 11 % (10-50); Monocytes % 3 % (2-9); Neutrophils % 86 % (42-76); Platelet Estimate Slight Increase; RBC Morphology Normal; Total Cells Counted 100
--- NOTE | 2024-05-15 13:17 | ED_ITS ---
Discharge Plan Disposition Patient Disposition: Still a Patient Condition: Good Prescriptions Prescriptions: New phenazopyridine [Azo Urinary Pain Relief] 95 mg tablet 95 mg PO Q8H Qty: 7 0RF ondansetron 4 mg tablet,disintegrating 4 mg PO Q8H PRN (Reason: nausea and vomiting) 5 Days Qty: 10 0RF No Action amoxicillin 875 mg tablet 875 mg PO Q12H Qty: 20 0RF fluticasone propionate [Flonase Allergy Relief] 50 mcg/actuation spray,suspension 2 spray intranasal DAILY Qty: 16 0RF Rx Instructions: administer into each nostril daily oxycodone 5 mg tablet 5 mg PO Q6H PRN (Reason: pain) Qty: 10 0RF Referrals Follow up/Referrals: Ankur Colindres DO [Primary Care Provider] - See instructions Activity Restrictions/Add. Instructions Additional Instructions/Restrictions: Stay well-hydrated. May take Tylenol and ibuprofen at home for pain. Return if fevers or worsening pain or inability to urinate. Please follow up with your primary care provider in 2-3 days. Please return to ED if your symptoms worsen, change in location, change in severity, new symptoms develop or if you become concerned for your health. Clinical Impressions Clinical Impression: Pyelonephritis Instructions Patient Instructions: DI for Urinary Tract Infection (UTI), DI for Urinary Tract Infection in Children Print Language Print Language: Nigerian Discharge ED Provider: Nate Peralta Adult HPI General Chief complaint: Urogenital-Female Stated complaint: Pain and frequent urination, pain in L side Time Seen by Provider: 05/15/24 10:31 Mode of Arrival: Ambulatory Source of Information: Patient Limitations: No Limitations Description of Symptoms (Recalled from ER Triage Doc. by RN): urinary symptoms, left back pain History of Present Illness HPI narrative: Patient is a 20-year-old female with no medical history who presents from urgent care treatment center today due to flank pain. There, she had a urinalysis that demonstrated positive nitrites and white blood cells. She reports that sharp stabbing pain began in her left kidney area radiating down to her left flank beginning 2 days ago and has persisted. She is still having urination, without hematuria, but is having dysuria. She denies any fevers. No abdominal surgeries. Related Data Previous Rx's ?Medication ?Instructions ?Recorded amoxicillin 875 mg tablet 875 mg PO Q12H #20 tabs 02/29/24 fluticasone propionate 50 2 spray intranasal DAILY #16 grams 02/29/24 mcg/actuation nasal spray,suspension (Flonase Allergy Relief) oxycodone 5 mg tablet 5 mg PO Q6H PRN pain #10 tabs 04/02/24 ondansetron 4 mg disintegrating 4 mg PO Q8H PRN nausea and 05/15/24 tablet vomiting 5 days #10 tabs phenazopyridine 95 mg tablet (Azo 95 mg PO Q8H 6 doses #7 tabs 05/15/24 Urinary Pain Relief) Allergies Allergy/AdvReac Type Severity Reaction Status Date / Time No Known Drug Allergies Allergy Unknown Verified 12/13/22 09:13 (NKDA) [facility] Disclaimer: The information contained in this section may have been updated after the patient was seen, as this information can be updated by other users. 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 Asthma Back pain Cervicalgia LLQ abdominal pain Surgical History History of section Social History (Updated 02/29/24 @ 14:41 by Anne Marie Robertson APRN) Smoking Status: Current every day smoker tobacco type: smokeless tobacco alcohol intake: never substance use type: denies use current occupational status: other Travel in the last 8 weeks: None household members: children housing: apartment Have you lived/traveled outside US in past 30 days?: No Contact w/someone who lives/traveled outside US past 30 days?: No Exposure to someone with infectious disease in past 14 days?: No Do you have a fever (greater than 100.4 F or 38 C)?: No Have you tested positive for COVID-19: No Exposed to someone with COVID-19 in past 14 days?: No Do you have a sore throat?: No Do you have a cough?: No Do you have any weakness?: No Do you have any diarrhea?: No Are you experiencing any unusual bleeding?: No Do you have any muscle aches/pain?: No Do you have any abdominal pain?: Yes Are you experiencing loss of taste or smell?: No Other 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 Have you received the Flu Vaccine for this season: Yes Have you received the Pneumonia Vaccine: No ROS Obtained: Yes All systems reviewed & no additional complaints except as documented Physical Exam General General appearance: alert and in no apparent distress Head Head exam: atraumatic and normocephalic Eye Eye exam: Present PERRL and EOMI ENT ENT exam: Present normal oropharynx Neck Neck exam: Present full ROM and trachea midline Chest Chest inspection: Present symmetric chest wall rise Respiratory Respiratory exam: Present normal lung sounds bilaterally; Absent stridor Cardiovascular Cardiovascular exam: Present regular rate and normal rhythm Abdominal Exam Abdominal exam: Present soft; Absent distention or tenderness Extremities Exam Extremities exam: Present full ROM Back Exam Back exam: Present CVA tenderness (L) Neurological Exam Neurological exam: Present alert and oriented X3 Psychiatric Psychiatric exam: Present normal mood Skin Skin exam: Present warm and dry Medical Decision Making Medical Records Screening: Per USPSTF and CDC recommendations, given the prevalence of disease in our region, it is our hospital?s policy to screen for HIV and viral Hepatitis for all patients aged 18 and over and those with ongoing risk factors. Babar Inquiry Pt receiving controlled substance: No Vital Signs: 05/15/24 10:01 05/15/24 10:27 05/15/24 10:55 Temperature 98.4 F 98.4 F Temperature Source Oral Oral Pulse Rate 97 H 85 Pulse Rate [Left Radial] 97 H Respiratory Rate 18 18 Blood Pressure 135/85 117/73 Blood Pressure [Right Arm] 135/85 Blood Pressure Mean [Right Arm] 101 02 Sat by Pulse Oximetry 100 95 Oxygen Delivery Method Room Air 05/15/24 10:57 05/15/24 11:00 05/15/24 11:30 Temperature 98.1 F Temperature Source Oral Pulse Rate 83 68 Pulse Rate [Left Radial] 77 Respiratory Rate 18 Blood Pressure 105/64 L 105/86 L Blood Pressure [Right Arm] 105/64 L Blood Pressure Mean [Right Arm] 77 02 Sat by Pulse Oximetry 99 97 95 Oxygen Delivery Method Room Air Room Air 05/15/24 12:00 05/15/24 12:30 05/15/24 12:35 Temperature Temperature Source Pulse Rate 75 69 69 Pulse Rate [Left Radial] Respiratory Rate Blood Pressure 100/64 L 101/62 L 100/58 L Blood Pressure [Right Arm] Blood Pressure Mean [Right Arm] 02 Sat by Pulse Oximetry 96 97 99 Oxygen Delivery Method Room Air Room Air Lab Data Lab Results 05/15/24 10:08: Urine Color Yellow, Urine Appearance Cloudy, Urine pH 6.0, Ur Specific [place] 1.010, Urine Protein Negative, Urine Glucose (UA) Negative, Urine Ketones Negative, Urine Blood 3+, Urine Nitrate Positive A, Urine Bilirubin Negative, Urine Urobilinogen 0.2, Ur Leukocyte Esterase 2+ A 05/15/24 10:45: WBC 16.9 H, RBC 4.25, Hgb 13.2, Hct 39.6, MCV 93.2, MCH 31.1, MCHC 33.3, RDW 12.8, Plt Count 472 H, MPV 10.5 H, Neut % (Auto) 86.2 H, Lymph % (Auto) 5.9 L, [place] % (Auto) 7.2, Eos % (Auto) 0.1, Baso % (Auto) 0.2, Neut # (Auto) 14.5 H, Lymph # (Auto) 1.0, [place] # (Auto) 1.2 H, Eos # (Auto) 0.0, Baso # (Auto) 0.0, Total Counted 100, Neutrophils % (Manual) 86 H, Lymphocytes % (Manual) 11, Monocytes % (Manual) 3, Platelet Estimate Slight increase, RBC Morphology Normal, Sodium 138, Potassium 3.8, Chloride 103, Carbon Dioxide 26, Anion Gap 12.8, BUN 7, Creatinine 0.50 L, Estimated Creat Clear 264, Estimated GFR 147, Est GFR ( Amer) 178, Glucose 102 H, Calcium 9.3, Total Bilirubin 0.9, AST 26, ALT 15, Alkaline Phosphatase 92, Total Protein 7.7, Albumin 4.7, Globulin 3.0, Albumin/Globulin Ratio 1.6, Lipase 46, Serum HCG, Qual Negative 05/15/24 10:45 05/15/24 10:45 Orders (Tests/Meds): ED MEDICATIONS Discontinued Medications Generic Name Dose Route Start Last Admin Trade Name Freq PRN Reason Stop Dose Admin Ketorolac Tromethamine 15 mg 05/15/24 11:03 05/15/24 11:10 Ketorolac 30mg/Ml Vial IV 05/15/24 11:04 15 mg ONCE ONE Administration Ondansetron HCl 4 mg 05/15/24 11:03 05/15/24 11:10 Ondansetron 4mg/2ml Vial IV 05/15/24 11:04 4 mg ONCE ONE Administration ORDERS Category Date Time Status CT abdomen pelvis wo con Stat Cat Scan 05/15/24 11:02 Taken Complete Blood Count Auto Diff Stat Lab 05/15/24 10:45 Completed Comprehensive Metabolic Panel Stat Lab 05/15/24 10:45 Completed HCG Qualitative, Serum Stat Lab 05/15/24 10:45 Completed Lipase Stat Lab 05/15/24 10:45 Completed Urine Culture Stat Micro 05/15/24 10:08 Received Medical Decision Narrative: In summary, this 28-year-old presents to the emergency department today with flank pain. On initial evaluation patient is afebrile, hemodynamically stable in no acute distress. On exam warm well-perfused full pulses in all extremities. Abdomen exam has some left lower quadrant tenderness radiating in the left flank tenderness. She is able to have a good urination here. She has never had a history of kidney stones, though given the history of sharp stabbing pain now radiating, felt reasonable to proceed with CT renal stone. Differential diagnosis includes but is not limited to pyelonephritis, LEISA, nephrolithiasis, ureterolithiasis, hydronephrosis. Based on these concerns, I ordered CBC CMP urinalysis CT renal stone. Patient received Toradol, Zofran for treatment. Labs personally reviewed demonstrate no leukocytosis no evidence of anemia and no evidence of LEISA. CT imaging personally interpreted demonstrate no nephrolithiasis or hydroureteronephrosis.. On reassessment patient reports improvement in her pain. She is tolerating oral intake. Multimodal pain control at home, strict precautions discussed all questions answered preterminal plan discharge at this time. Of note, social determinants of health include poor health literacy. At this time it was felt that the patient was safe to be discharged home. The patient was in agreement with this plan. The patient was given strict return precautions prior to being discharged from the emergency department. Critical Care Critical Care Time Critical Care Time: No
== END 2024-05-15 13:27 | disposition home or self-care (01) ==
LOC: UTC 10:41 → ER 10:42
PROVIDERS: Nurse Practitioner; Emergency Provider Emergency Medicine; PCP Internal Medicine
DX: N12 Tubulo-interstitial nephritis, not specified as acute or chronic (principal); R30.9 Painful micturition, unspecified; R35.0 Frequency of micturition; M54.9 Dorsalgia, unspecified; R30.0 Dysuria
CPT/HCPCS: 74176; 80053; 81003; 83690; 84703; 85007; 85025; 85027; 87086; 87088; 87186; 96374; 96375; 99284; J1885; J2405

== ENCOUNTER 2024-07-19 19:42 | Emergency (ER) | payer MEDICAID, SELFPAY ==
--- NOTE | 2024-07-19 19:55 | ED_ITS ---
Discharge Plan Disposition Patient Disposition: Home, Self-Care Condition: Good Prescriptions Prescriptions: New ondansetron 4 mg tablet,disintegrating 4 mg PO Q8H PRN (Reason: nausea and vomiting) 5 Days Qty: 10 0RF benzonatate 100 mg capsule 100 mg PO TID PRN (Reason: cough) 14 Days Qty: 30 0RF No Action amoxicillin 875 mg tablet 875 mg PO Q12H Qty: 20 0RF fluticasone propionate [Flonase Allergy Relief] 50 mcg/actuation spray,suspension 2 spray intranasal DAILY Qty: 16 0RF Rx Instructions: administer into each nostril daily oxycodone 5 mg tablet 5 mg PO Q6H PRN (Reason: pain) Qty: 10 0RF phenazopyridine [Azo Urinary Pain Relief] 95 mg tablet 95 mg PO Q8H Qty: 7 0RF ondansetron 4 mg tablet,disintegrating 4 mg PO Q8H PRN (Reason: nausea and vomiting) 5 Days Qty: 10 0RF cefdinir 300 mg capsule 300 mg PO BID 7 Days Qty: 14 0RF Referrals Follow up/Referrals: Provider,Referral, MD [Primary Care Provider] - See instructions Activity Restrictions/Add. Instructions Additional Instructions/Restrictions: I have prescribed nausea and cough medications for you to use as needed. The steroids will help with your sore throat and should last approximately 72 hours. Please take Tylenol and ibuprofen as needed as well. Please return with any new or worsening symptoms. Clinical Impressions Clinical Impression: Pharyngitis Qualifiers: Pharyngitis/tonsillitis etiology: unspecified etiology Qualified Code(s): J02.9 - Acute pharyngitis, unspecified Print Language Print Language: Khmer Discharge ED Provider: Rasheed Richards General Adult HPI General Chief complaint: Upper Respiratory Infection Stated complaint: SOA,sore throat,congestion Time Seen by Provider: 07/19/24 19:55 History of Present Illness HPI narrative: Patient with cough, congestion, earache, with sick contact of daughter, gradual in onset, constant, stable in course, no previous therapies, no fevers or chills no abdominal pain or chest pain or shortness of breath outside of when coughing. Patient has had some trace nausea although no nausea at this time. No other associated symptoms. Patient has been able to tolerate p.o. intake no globus sensation no trismus Please note that above description of symptoms, in this electronic medical record under categorization of recalled from ER triage doctor by RN are reflective of an initial nursing assessment, however, is not reflective of my full history and physical exam that was personally taken and clarified. Consequentially, this preceding description of symptoms, which may include the patient's categorized chief complaint in the EMR, do not reflect my personal clinical impression, and the ultimate description of history of present illness and patient stated complaints should be deferred to this section of the note. Unless stated otherwise or congruent with this section of the note, additional signs, symptoms, or incongruence should be interpreted as inaccurate with my clinical impression. Related Data Previous Rx's ?Medication ?Instructions ?Recorded amoxicillin 875 mg tablet 875 mg PO Q12H #20 tabs 02/29/24 fluticasone propionate 50 2 spray intranasal DAILY #16 grams 02/29/24 mcg/actuation nasal spray,suspension (Flonase Allergy Relief) oxycodone 5 mg tablet 5 mg PO Q6H PRN pain #10 tabs 04/02/24 cefdinir 300 mg capsule 300 mg PO BID 7 days #14 caps 05/15/24 ondansetron 4 mg disintegrating 4 mg PO Q8H PRN nausea and 05/15/24 tablet vomiting 5 days #10 tabs phenazopyridine 95 mg tablet (Azo 95 mg PO Q8H 6 doses #7 tabs 05/15/24 Urinary Pain Relief) benzonatate 100 mg capsule 100 mg PO TID PRN cough 14 days 07/19/24 #30 caps ondansetron 4 mg disintegrating 4 mg PO Q8H PRN nausea and 07/19/24 tablet vomiting 5 days #10 tabs Allergies Allergy/AdvReac Type Severity Reaction Status Date / Time No Known Drug Allergies Allergy Unknown Verified 12/13/22 09:13 (NKDA) [facility] Disclaimer: The information contained in this section may have been updated after the olivia montemayor was seen, as this information can be updated by other users. 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 Asthma Back pain Cervicalgia LLQ abdominal pain Surgical History History of section Social History (Updated 02/29/24 @ 14:41 by Anne Marie Robertson APRN) Smoking Status: Former smoker tobacco type: smokeless tobacco alcohol intake: never substance use type: denies use current occupational status: other Travel in the last 8 weeks: None household members: children housing: apartment Have you lived/traveled outside [place] in past 30 days?: No Contact w/someone who lives/traveled outside US past 30 days?: No Exposure to someone with infectious disease in past 14 days?: No Do you have a fever (greater than 100.4 F or 38 C)?: No Have you tested positive for COVID-19: No Exposed to someone with COVID-19 in past 14 days?: No Do you have a sore throat?: No Do you have a cough?: Yes Do you have any weakness?: Yes Do you have any diarrhea?: No Are you experiencing any unusual bleeding?: No Do you have any muscle aches/pain?: Yes Do you have any abdominal pain?: No Are you experiencing loss of taste or smell?: No Other 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 Have you received the Flu Vaccine for this season: Yes Have you received the Pneumonia Vaccine: No ROS Obtained: Yes other As per HPI Physical Exam General General appearance: alert and in no apparent distress Head Head exam: atraumatic and normocephalic Eye Eye exam: Present normal appearance Neck Neck exam: Present normal inspection Chest Chest inspection: Present normal inspection and symmetric chest wall rise Respiratory Respiratory exam: Present normal lung sounds bilaterally; Absent respiratory distress Cardiovascular Cardiovascular exam: Present regular rate and normal rhythm Abdominal Exam Abdominal exam: Present soft Neurological Exam Neurological exam: Present alert and oriented X3 Psychiatric Psychiatric exam: Present normal affect and normal mood Skin Skin exam: Present warm and dry Other Other exam information: Pharyngeal erythema Medical Decision Making Medical Records Medical records reviewed: Yes I reviewed the patient's medical records. Screening: Per USPSTF and CDC recommendations, given the prevalence of disease in our region, it is our hospital?s policy to screen for HIV and viral Hepatitis for all patients aged 18 and over and those with ongoing risk factors. Babar Inquiry Pt receiving controlled substance: No Vital Signs: 07/19/24 20:10 07/19/24 22:08 Temperature 98.5 F 98.9 F Temperature Source Oral Oral Pulse Rate 71 Pulse Rate [Left Radial] 81 Respiratory Rate 18 16 Blood Pressure 140/78 Blood Pressure [Right Arm] 134/88 Blood Pressure Mean [Right Arm] 103 Blood Pressure Source [Right Arm] Automatic Cuff Blood Pressure Position Sitting Blood Pressure Position [Right Arm] Sitting 02 Sat by Pulse Oximetry 98 Oxygen Delivery Method Room Air Room Air Lab Data Lab Results 07/19/24 20:12: Group A Strep Rapid Negative 07/19/24 20:26: SARS-CoV-2 (PCR) Not detected, Influenza A Untype (PCR) Not detected, Influenza Type B (PCR) Not detected Orders (Tests/Meds): ED MEDICATIONS Discontinued Medications Generic Name Dose Route Start Last Admin Trade Name Freq PRN Reason Stop Dose Admin Dexamethasone 8 mg 07/19/24 21:44 07/19/24 22:00 Dexamethasone 4mg Tablet PO 07/19/24 21:45 8 mg ONCE ONE Administration ORDERS Category Date Time Status Rapid PCR Covid and Flu A/B Stat Lab 07/19/24 20:26 Completed Strep Scrn Group A (Rapid) Stat Lab 07/19/24 20:12 Completed Strep Screen Confirmation Stat Micro 07/19/24 20:12 Received Medical Decision Narrative: Patient with history and exam per above presenting for evaluation of upper respiratory infectious symptoms Diagnoses considered include bronchitis, strep pharyngitis, no clinical evidence of otitis media at this time, differential also includes other viral URIs. ED workup and treatment included: ED MEDICATIONS Discontinued Medications Generic Name Dose Route Start Last Admin Trade Name Freq PRN Reason Stop Dose Admin Dexamethasone 8 mg 07/19/24 21:44 07/19/24 22:00 Dexamethasone 4mg Tablet PO 07/19/24 21:45 8 mg ONCE ONE Administration ORDERS Category Date Time Status Rapid PCR Covid and Flu A/B Stat Lab 07/19/24 20:26 Completed Strep Scrn Group A (Rapid) Stat Lab 07/19/24 20:12 Completed Strep Screen Confirmation Stat Micro 07/19/24 20:12 Received Labs were independently interpreted by me, significant for no acute findings My clinical impression at this time is most consistent with unspecified viral URI I discussed my clinical impression with patient and answered all questions. At this time, the evidence for any other entities in the differential is insufficient to warrant any further testing or ED observation. This was explained to the patient. The patient was advised that persistent or worsening symptoms require further evaluation. Critical Care Critical Care Time Critical Care Time: No
[2024-07-19 20:10] VITALS: BP 134/88; PULSE 81; RESP 18; TEMP 36.9; O2SAT 98; BMI 33.8
[2024-07-19 20:32] LABS: Strep Scrn Group A (Rapid) Negative (Negative)
[2024-07-19 20:32] LABS: Coronavirus 19, PCR Not Detected (NotDetected); Influenza A, PCR Not Detected (NotDetected); Influenza B, PCR Not Detected (NotDetected)
[2024-07-19] MEDS: DEXAMETHASONE 4MG TABLET 8 MG PO (22:00)
[2024-07-19 22:08] VITALS: BP 140/78; PULSE 71; RESP 16; TEMP 37.2; O2SAT 100
== END 2024-07-19 22:09 | disposition home or self-care (01) ==
PROVIDERS: Emergency Provider Emergency Medicine
DX: J02.9 Acute pharyngitis, unspecified (principal); H92.03 Otalgia, bilateral; R09.89 Other specified symptoms and signs involving the circulatory and respiratory systems
CPT/HCPCS: 99283; 87430; 87636; J8540

== ENCOUNTER 2024-08-20 15:25 | Emergency (ER) | payer MEDICAID, SELFPAY ==
[2024-08-20 16:50] VITALS: BP 136/86; PULSE 70; RESP 19; TEMP 36.8; O2SAT 99; BMI 33.6
--- NOTE | 2024-08-20 17:12 | XR_ITS ---
PROCEDURE INFORMATION: Exam: XR Lumbosacral Spine Exam date and time: 08/20/2024 5:09 PM Age: 29 years old Clinical indication: Low back pain TECHNIQUE: Imaging protocol: Radiologic exam of the lumbosacral spine. Views: 2 or 3 views. COMPARISON: CR XR LUMBAR SPINE 2-3V 12/19/2021 7:41 PM FINDINGS: Bones/joints: Mild loss of intervertebral disc space with degenerative changes involving L5-S1. The vertebral bodies are maintained in height and alignment. No evidence of acute osseous abnormality. Soft tissues: Unremarkable. IMPRESSION: No acute findings.
--- NOTE | 2024-08-20 17:31 | ED_ITS ---
<Statement entered by Taina Hoang DO - 08/20/24 21:44> I was consulted by the MARY, and we discussed the complexity of the problems being addressed. I approved the treatment and management plan for this patient's care in the emergency department, thus performing a substantive portion of the medical decision making. Patient with acute on chronic back pain with no alarm findings such as unintentional weight loss, fever, saddle anesthesia, incontinence, urinary retention, or other concerns. She is neurologically intact in her lower extremities. I independently interpreted x- ray prior to radiology read and noted no acute fracture or malalignment. Patient deemed to be appropriate for discharge with close follow-up as an outpatient Taina Hoang DO Discharge Plan Disposition Patient Disposition: Home, Self-Care Condition: Good Prescriptions Prescriptions: New cyclobenzaprine 5 mg tablet 5 mg PO HS PRN (Reason: muscle spasm) Qty: 7 0RF No Action amoxicillin 875 mg tablet 875 mg PO Q12H Qty: 20 0RF fluticasone propionate [Flonase Allergy Relief] 50 mcg/actuation spray,suspension 2 spray intranasal DAILY Qty: 16 0RF Rx Instructions: administer into each nostril daily oxycodone 5 mg tablet 5 mg PO Q6H PRN (Reason: pain) Qty: 10 0RF phenazopyridine [Azo Urinary Pain Relief] 95 mg tablet 95 mg PO Q8H Qty: 7 0RF ondansetron 4 mg tablet,disintegrating 4 mg PO Q8H PRN (Reason: nausea and vomiting) 5 Days Qty: 10 0RF cefdinir 300 mg capsule 300 mg PO BID 7 Days Qty: 14 0RF ondansetron 4 mg tablet,disintegrating 4 mg PO Q8H PRN (Reason: nausea and vomiting) 5 Days Qty: 10 0RF benzonatate 100 mg capsule 100 mg PO TID PRN (Reason: cough) 14 Days Qty: 30 0RF Referrals Follow up/Referrals: Butch Parisi APRN [Primary Care Provider] - See instructions Activity Restrictions/Add. Instructions Additional Instructions/Restrictions: Follow-up with PCP Tylenol or Motrin as needed for pain Muscle relaxers at bedtime Rotate heat and ice If symptoms worsen or do not improve return Clinical Impressions Clinical Impression: Back pain with sciatica Instructions Patient Instructions: DI for Low Back Pain Print Language Print Language: Swedish Discharge ED Provider: Taina Hoang General Adult HPI General Chief complaint: Back Pain/Injury Stated complaint: moving pallets , hurt back and legs Time Seen by Provider: 08/20/24 17:10 Mode of Arrival: Family Vehicle Description of Symptoms (Recalled from ER Triage Doc. by RN): Pt c/o R lower back pain that radiates down both legs. This began approx 2 wk ago when she was lifting pallets. She has a hx of bulging disc. Denies any numbness, tingling, or loss of bladder/bowel. She used a Lidocaine-Icy Hot patch last night but it did not help. History of Present Illness HPI narrative: 29-year-old female presents for right lower back pain that radiates down right leg but pain in both legs with standing. Patient states about 3 to 4 weeks ago she was at work and she was tugging and pulling on some pallets and felt something pull in her back. Patient states she has had discomfort since then but over the last 3 to 4 days pain has increased. Patient states she has tried lidocaine patches which did not help. Patient states no bowel or bladder symptoms Related Data Previous Rx's ?Medication ?Instructions ?Recorded amoxicillin 875 mg tablet 875 mg PO Q12H #20 tabs 02/29/24 fluticasone propionate 50 2 spray intranasal DAILY #16 grams 02/29/24 mcg/actuation nasal spray,suspension (Flonase Allergy Relief) oxycodone 5 mg tablet 5 mg PO Q6H PRN pain #10 tabs 04/02/24 cefdinir 300 mg capsule 300 mg PO BID 7 days #14 caps 05/15/24 ondansetron 4 mg disintegrating 4 mg PO Q8H PRN nausea and 05/15/24 tablet vomiting 5 days #10 tabs phenazopyridine 95 mg tablet (Azo 95 mg PO Q8H 6 doses #7 tabs 05/15/24 Urinary Pain Relief) benzonatate 100 mg capsule 100 mg PO TID PRN cough 14 days 07/19/24 #30 caps ondansetron 4 mg disintegrating 4 mg PO Q8H PRN nausea and 07/19/24 tablet vomiting 5 days #10 tabs cyclobenzaprine 5 mg tablet 5 mg PO HS PRN muscle spasm #7 tabs 08/20/24 Allergies Allergy/AdvReac Type Severity Reaction Status Date / Time No Known Drug Allergies Allergy Unknown Verified 12/13/22 09:13 (NKDA) [facility] Disclaimer: The information contained in this section may have been updated after the patient was seen, as this information can be updated by other users. 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: No Do you have a sore throat?: No Do you have a cough?: No Do you have any weakness?: No Do you have any diarrhea?: No Are you experiencing any unusual bleeding?: No Do you have any muscle aches/pain?: No Do you have any abdominal pain?: No Are you experiencing loss of taste or smell?: No Other 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 Have you received the Flu Vaccine for this season: Yes Have you received the Pneumonia Vaccine: No ROS Obtained: Yes Systems reviewed as appropriate & no additional complaints except as documented Physical Exam General General appearance: alert and in no apparent distress Respiratory Respiratory exam: Present normal lung sounds bilaterally Cardiovascular Cardiovascular exam: Present regular rate and normal rhythm Back Exam Back exam: Present normal inspection, full ROM and CVA tenderness (R) Neurological Exam Neurological exam: Present alert and oriented X3 Skin Skin exam: Present warm Medical Decision Making Medical Records Screening: Per USPSTF and CDC recommendations, given the prevalence of disease in our region, it is our hospital?s policy to screen for HIV and viral Hepatitis for all patients aged 18 and over and those with ongoing risk factors. Babar Inquiry Pt receiving controlled substance: No Vital Signs: 08/20/24 16:50 Temperature 98.2 F Temperature Source Oral Pulse Rate [Right] 70 Respiratory Rate 19 Blood Pressure [Right Arm] 136/86 Blood Pressure Mean [Right Arm] 102 Blood Pressure Source [Right Arm] Automatic Cuff 02 Sat by Pulse Oximetry 99 Oxygen Delivery Method Room Air Orders (Tests/Meds): ED MEDICATIONS Discontinued Medications Generic Name Dose Route Start Last Admin Trade Name Jesi PRN Reason Stop Dose Admin Dexamethasone Sodium Phosphate 4 mg 08/20/24 17:30 Dexamethasone 4mg/Ml 1ml Vial IM 08/20/24 17:31 ONCE ONE ORDERS Category Date Time Status Lumbar spine XR 2-3 views [XR lumbar spine 2-3V] Stat Exams 08/20/24 17:12 Taken Medical Decision Narrative: In summary patient is a 29-year-old female who presents to the emergency department for evaluation of low back pain with pain radiating down right buttocks and leg. Patient states she has chronic back pain. Patient is hemodynamically stable upon arrival, afebrile. Unremarkable physical exam. Differential diagnosis includes low back pain with sciatica. Initial workup tommy l be conducted with x-ray. Initial inventions include IM steroid. Initial workup reviewed by me x-ray. Upon repeat evaluation patient states she would like to be discharged home and will get a prescription for muscle relaxer and take once she is home. Given this patient appropriate for discharge will discharge home with close follow-up with PCP. Patient to return if symptoms worsen or do not improve. Considered CT of low back but with patient having no neurological symptoms such as bowel or bladder incontinence, saddle paresthesia, deferred at this time Critical Care Critical Care Time Critical Care Time: No
[2024-08-20] MEDS: DEXAMETHASONE 4MG/ML 1ML VIAL 4 MG IM (17:55)
[2024-08-20 18:13] VITALS: BP 132/80; PULSE 72; RESP 19; TEMP 36.8; O2SAT 99
== END 2024-08-20 18:19 | disposition home or self-care (01) ==
PROVIDERS: Emergency Provider Emergency Medicine; PCP Nurse Practitioner Family
DX: M51.17 Intervertebral disc disorders with radiculopathy, lumbosacral region (principal)
CPT/HCPCS: 72100; 96372; 99283; 99284; J1100

== ENCOUNTER 2024-09-10 13:59 | Outpatient (RCR) | payer MEDICAID, SELFPAY | END 2024-09-10 23:59 | disposition home or self-care (01) | LOC: PT 13:59 | PROVIDERS: Visit Provider Nurse Practitioner Family | DX: M54.50 Low back pain, unspecified (principal) ==

== ENCOUNTER 2024-09-19 15:03 | Outpatient (RCR) | payer MEDICAID, SELFPAY | END 2024-09-19 23:59 | disposition home or self-care (01) | LOC: OT 15:03 | PROVIDERS: Visit Provider Orthopaedic Surgery | DX: S53.105D Unspecified dislocation of left ulnohumeral joint, subsequent encounter (principal) | CPT/HCPCS: 97166 ==